=== PATIENT | female | born 1950 | race Caucasian/White ===

== ENCOUNTER 2018-05-12 12:00 | Outpatient (REF) | payer MEDICARE, OTHER, SELFPAY ==
[2018-05-12 21:35] LABS: Anion Gap 11.3 mmol/L (3-11); BUN 14 mg/dL (7-18); CO2 29.7 mmol/L (21.0-32.0); CREATININE 1.01 mg/dL (0.55-1.02); Chloride 99 mmol/L (98-107); Estimated GFR 54.67 (mL/min/1.73m2); Glucose 87 mg/dL (70-100); Magnesium 1.5 mg/dL (1.8-2.4); Potassium 3.2 mmol/L (3.5-5.1); Sodium 140 mmol/L (136-145); TSH 2.63 uIU/mL (0.358-3.74); Vitamin B12 1471 pg/mL (193-986)
[2018-05-15 06:48] LABS: Vitamin D 25 Total 31.3 ng/ml (30-100)
[2018-05-15 12:08] LABS: Hepatitis C Ab w Rflx HCV PCR Negative (NEGAT)
== END 2018-05-12 12:20 ==
LOC: NCHCN 12:00
PROVIDERS: Visit Provider Internal Medicine
DX: R53.83 Other fatigue (principal); Z79.899 Other long term (current) drug therapy; E03.9 Hypothyroidism, unspecified; Z11.59 Encounter for screening for other viral diseases; Z79.51 Long term (current) use of inhaled steroids
CPT/HCPCS: 80048; 82306; 86803; 82607; 83735; 84443

== ENCOUNTER 2018-07-10 16:24 | Outpatient (REF) | payer MEDICARE, OTHER, SELFPAY ==
[2018-07-10 22:22] LABS: Magnesium 1.6 mg/dL (1.8-2.4)
== END 2018-07-10 16:44 ==
LOC: NCHCN 16:24
PROVIDERS: PCP Internal Medicine; Visit Provider Internal Medicine
DX: E83.42 Hypomagnesemia (principal); E87.6 Hypokalemia
CPT/HCPCS: 83735; 84132

== ENCOUNTER → 2018-11-24 09:08 | Outpatient (BNVA) | payer MEDICARE, OTHER, SELFPAY | PROVIDERS: PCP Internal Medicine; Referring Provider Internal Medicine; Visit Provider Student in an Organized Health Care Education/Training Program | DX: M76.62 Achilles tendinitis, left leg (principal); I10 Essential (primary) hypertension | CPT/HCPCS: 99213; 99214 ==

== ENCOUNTER → 2019-01-22 09:04 | Outpatient (BNVA) | payer MEDICARE, OTHER, SELFPAY | PROVIDERS: PCP Internal Medicine; Referring Provider Internal Medicine; Visit Provider Student in an Organized Health Care Education/Training Program | DX: M76.62 Achilles tendinitis, left leg (principal); I10 Essential (primary) hypertension | CPT/HCPCS: 99213 ==

== ENCOUNTER 2019-09-18 09:34 | Outpatient (REF) | payer MEDICARE, OTHER, SELFPAY ==
[2019-09-18 14:02] LABS: Anion Gap 9.6 mmol/L (3-11); BUN 18 mg/dL (7-18); CO2 31.4 mmol/L (21.0-32.0); CREATININE 1.09 mg/dL (0.55-1.02); Calcium 9.3 mg/dL (8.5-10.1); Chloride 102 mmol/L (98-107); Estimated GFR 49.92 (mL/min/1.73m2); FREE T4 1.31 ng/dL (0.76-1.46); Glucose 154 mg/dL (74-106); Potassium 4.5 mmol/L (3.5-5.1); Sodium 143 mmol/L (136-145)
== END 2019-09-18 09:54 ==
LOC: NCHCN 09:34
PROVIDERS: PCP Internal Medicine; Visit Provider Internal Medicine
DX: R53.83 Other fatigue (principal); E83.42 Hypomagnesemia; E87.6 Hypokalemia
CPT/HCPCS: 80048; 84439; 84443

== ENCOUNTER 2019-10-25 01:41 | Outpatient (CLI) | payer MEDICARE, OTHER, SELFPAY ==
--- NOTE | 2019-10-25 | DI.MAMMO_ITS ---
EXAM: MG MAMMO SCREENING CLINICAL HISTORY: SCREENING Z12.39 TECHNIQUE: Bilateral full field digital CC and MLO mammographic images were obtained with 3D tomosyn thesis and utilizing computer aided detection (CAD). COMPARISON: Available for comparison. FINDINGS: Masses/Architectural Distortion: None seen. Surgical clips are again seen in the right breast. Microcalcifications: No suspicious pleomorphic-type are seen. Skin Thickening/Nipple Retraction: None. IMPRESSION: 1. No significant interval change with no specific features of malignancy noted. 2. Unless there is more urgent need, screening mammography is recommended, as per [place] guidelines. ACR BI-RAD Category- 1 Negative Breast Density - Category B - Scattered areas of fibroglandular density A negative radiographic report should not delay biopsy if a dominant or clinically suspicious mass is present. Up to ten percent of cancers are not identified on mammography. A negative report may reinforce clinical impression. Adenosis and dense breasts may obscure an underlying neoplasm. False positive reports average 6 to 10%. Patient will receive a letter notifying them of these results.
== END 2019-10-25 02:01 ==
PROVIDERS: PCP Internal Medicine; Visit Provider Internal Medicine
DX: Z12.31 Encounter for screening mammogram for malignant neoplasm of breast (principal)
CPT/HCPCS: 77063; 77067

== ENCOUNTER 2020-02-23 10:32 | Emergency (ER) | payer MEDICARE, OTHER, SELFPAY ==
[2020-02-23 10:36] VITALS: BP 200/76; PULSE 99; TEMP 36.6; O2SAT 96
--- NOTE | 2020-02-23 10:39 | ED.GENADUL_ITS ---
Discharge Plan Disposition Patient Disposition: HOME Condition: Good Discharge Details Chief Complaint: Orthopedic Clinical Impression: Fish hook injury of finger Primary Care Provider: Buddy Eisenberg ED Provider: Kristal Byrne Home Meds and New Rx's Prescriptions: New cephalexin [Keflex] 500 mg capsule 500 mg PO BID Qty: 10 RF: 0 Continued famotidine 40 mg tablet 40 mg PO DAILY RF: 0 potassium chloride 20 mEq tablet extended release 20 meq PO DAILY RF: 0 magnesium chloride [Mag-Delay] 70 mg tablet,delayed release (DR/EC) 84 mg PO DAILY RF: 0 turmeric root extract 500 mg capsule 500 mg PO BID RF: 0 fluticasone propion-salmeterol [Advair Diskus] 1 EACH blister with device 1 puff Inhalation BID RF: 0 sumatriptan succinate [Imitrex] 25 MG tablet 25 mg PO PRN PRNRF: 0 chlorthalidone 25 MG tablet 25 mg PO DAILY RF: 0 levothyroxine [Synthroid] 88 MCG tablet 112 mcg PO DAILY RF: 0 oxybutynin chloride 5 MG tablet extended release 24hr 10 mg PO DAILY RF: 0 albuterol sulfate 8.5 GM HFA aerosol inhaler 2 puff Inhalation Q4H PRN RF: 0 ferrous sulfate 325 MG tablet 325 mg PO TID RF: 0 docusate sodium 100 MG capsule 100 mg PO BID RF: 0 magnesium hydroxide [Milk of Magnesia] 30 ML suspension 30 ml PO PRN PRNRF: 0 fluticasone propionate [Flonase Allergy Relief] 9.9 ML spray,suspension 1 spray NS DAILY RF: 0 cholecalciferol (vitamin D3) 50,000 UNIT capsule 50,000 unit PO .EVERY OTHER TUESDAY RF: 0 Refresh Tears 15 ML drops 2 drp OU PRN PRNRF: 0 Fiber Choice (inulin) 1.5 GM tablet,chewable 1 tab PO PRN PRNRF: 0 celecoxib 200 MG capsule 200 mg PO BID Qty: 60 RF: 2 acetaminophen [Acetaminophen Extra Strength] 500 MG tablet 1,000 mg PO Q8H PRN PRNQty: 180 RF: 0 Discharge Instructions Instructions: Puncture Wound (ED) Additional Instructions: Please take the antibiotics as prescribed. This is to help prevent infection. Please continue to monitor wounds for signs of infection including redness, warmth, drainage, increased pain, fever/chills. If you develop these or other new/worsening symptoms please seek care urgently once again. May use Tylenol and/or ibuprofen as needed for discomfort. Follow-up with primary care as needed. Referrals: Buddy Eisenberg MD [Primary Care Provider] - Discharge Data Discharge Date/Time-TO BE ENTERED AT DEPARTURE: 02/23/20 11:25 Medical Decision Making <PABLO Bland - Last Filed: 02/23/20 11:47> Patient is a pleasant 69-year-old kxkmk-nvsy-kspeissa female presenting today with chief complaint of fishhook embedded in the right thumb. She reports the fishhook was clean and freshen the package. Attempted to remove this but the patel is preventing this. Patient is 9 years from her last tetanus, we will update this today. She denies any numbness or tingling. Denies other injury the time of the incident. On exam, patient has what appears to be a fishhook l embedded to the point of the patel approximately 4 mm compared to the other sides of the whole. She has intact sensation. No active bleeding. Patient discussed her/benefits as well as expected procedural steps of digital block. She voiced understanding and wished to proceed. sing standard sterile technique, digital block was perform using 1% lidocaine plain. 5 cc was infiltrated. Patient tolerated this well. String technique wa s then used completed by Dr. Sam Greenfield to remove the fishhook. This came out easily without incident. No further opening of the skin was necessary. Patient tolerated this well. The wound was then irrigated. Patient will then placed on prophylactic antibiotics as per up-to-date recommendation. Her tetanus was updated. Patient was initially hypertensive with a blood pressure of 206. She does report that she has hypertension and is able to monitor this at home. She will continue to monitor this and track it. She has not been appointment with her primary care. She is not having any headaches, chest pain or evidence of hypertensive emergency. She is aware she should return if any new symptoms arise. All of her questions or concerns were addressed and she is in agreement this plan. <Sam Greenfield MD - Last Filed: 03/05/20 11:21> Patient seen, examined, and discussed with PABLO Byrne. I performed fishhook removal with PABLO Byrne using string technique without complication. I obtained and reviewed outside hospital records from PCP: Tetanus is up-to-date. I agree with treatment plan as discussed/documented. HPI <PABLO Bland - Last Filed: 02/23/20 11:47> General Mode of arrival: ambulatory . Date/Time Provider Initiated Documentation: 02/23/20 10:39 . Limitations to Documentation: no limitations . Information obtained by: patient and RN notes reviewed . History of Present Illness 69 year old F presents to the emergency department with the chief complaint of fish hook embedded into right thumb, described as moderate, with intensity rated at 6. Quality is described as stabbing, and is localized to the right and upper extremity. Patient reports no radiation. Patient started experiencing this minute(s) and it has been constant. No relieving factors improve symptom(s), No exacerbating factors reported . Patient notes no other symptoms.. Patient did receive the following treatments prior to arrival, none Related Data Home Medications Medication Instructions Recorded Confirmed albuterol sulfate 2 puff INHALATION Q4H PRN inhaler 08/26/14 01/22/19 chlorthalidone 25 mg PO DAILY tab-cap 08/26/14 01/22/19 fluticasone propion-salmeterol 1 puff INHALATION BID disk 08/26/14 01/22/19 [Advair Diskus] levothyroxine [Synthroid] 112 mcg PO DAILY tab-cap 08/26/14 01/22/19 oxybutynin chloride 10 mg PO DAILY tab-cap 08/26/14 01/22/19 sumatriptan succinate [Imitrex] 25 mg PO PRN PRN 08/26/14 01/22/19 ferrous sulfate 325 mg PO TID 06/20/15 01/22/19 docusate sodium 100 mg PO BID 07/10/15 01/22/19 magnesium hydroxide [Milk of 30 ml PO PRN PRN 07/10/15 01/22/19 Magnesia] cholecalciferol (vitamin D3) 50,000 unit PO .EVERY OTHER Tuesday03/09/16 01/22/19 fluticasone propionate [Flonase 1 spray NS DAILY 03/09/16 01/22/19 Allergy Relief] Fiber Choice (inulin) 1 tab PO PRN PRN 09/15/16 01/22/19 Refresh Tears 2 drp OU PRN PRN 09/15/16 01/22/19 acetaminophen [Acetaminophen Extra 1,000 mg PO Q8H PRN PRN #180 tab 02/03/17 01/22/19 Strength] celecoxib 200 mg PO BID #60 cap 02/03/17 01/22/19 famotidine 40 mg tablet 40 mg PO DAILY 11/24/18 01/22/19 magnesium chloride 70 mg 84 mg PO DAILY tab 11/24/18 01/22/19 (magnesium chloride) tablet,delayed release potassium chloride 20 mEq 20 meq PO DAILY 11/24/18 01/22/19 tablet,extended release turmeric root extract 500 mg 500 mg PO BID 11/24/18 01/22/19 capsule cephalexin [Keflex] 500 mg PO BID #10 cap 02/23/20 Previous Rx's Medication Instructions Recorded acetaminophen [Acetaminophen Extra 1,000 mg PO Q8H PRN PRN #180 tab 02/03/17 Strength] celecoxib 200 mg PO BID #60 cap 02/03/17 cephalexin [Keflex] 500 mg PO BID #10 cap 02/23/20 Allergies Allergy/AdvReac Type Severity Reaction Status Date / Time psyllium husk Allergy asthma Unverified 01/22/19 09:11 [From Metamucil] psyllium seed Allergy asthma Unverified 01/22/19 09:11 [From Metamucil] sucrose [From Metamucil] Allergy asthma Unverified 01/22/19 09:11 gabapentin [From Neurontin] AdvReac Intermediate Angry Unverified 01/22/19 09:11 demeanor rosuvastatin calcium AdvReac Intermediate myalgia Unverified 01/22/19 09:11 [From Crestor] latex AdvReac local rash Unverified 01/22/19 09:11 metoclopramide HCl AdvReac facial Unverified 01/22/19 09:11 [From Reglan] tics, tachycardia General Stated Complaint: Orthopedic RASHI: 4 Review of Systems <PABLO Bland - Last Filed: 02/23/20 11:47> Constitutional Constitutional: Reports as per HPI, Denies chills and Denies fever(s) Musculoskeletal Musculoskeletal: Reports as per HPI Integumentary/Breasts Skin/Breast: Reports as per HPI Neurologic Neurologic: Reports as per HPI, Denies sensory deficit and Denies paresthesias PFSH <PABLO Bland - Last Filed: 02/23/20 11:47> Medical History (Updated 02/23/20 @ 11:20 by PABLO Bland) Aortic regurgitation Arthritis Storey esophagus Diverticulosis Fibrocystic breast Hypertension Hypothyroid Obesity RAD (reactive airway disease) Urine incontinence Surgical History (Updated 04/05/16 @ 14:04 by Kaitlin Curtis) Colonoscopy - IV Sedation Endoscopy (03/10/16) Dr Álvarez, repeat PRN Jerry Fundoplication Social History Smoking/Tobacco Use Status: Former Tobacco Use Drug use: Never Substance use type: does not use Do you feel safe at home: Yes Do you feel safe in your relationship?: Yes Exam <PABLO Bland - Last Filed: 02/23/20 11:47> Const General: cooperative, healthy appearing, comfortable, no acute distress and well developed Nutritional Appearance: average body habitus and well nourished Orientation: alert and awake Resp Effort & Inspection: normal respiratory effort, able to speak in complete sentences and no respiratory distress Cardio Rate: regular rate Rhythm: regular rhythm Skin Trauma: puncture (fish hook embedded into distal right thumb, patel in skin) Neuro General: patient alert and patient awake Cognition: normal cognition Speech: speech normal Gait: normal gait Sensory Exam: no sensory deficits noted Extrem Right upper extremity: abnormal to inspection Psych Appearance: grossly normal and well kempt Mental Status: mental status grossly normal Speech and Movement: speech and movement normal Course <PABLO Bland - Last Filed: 02/23/20 11:47> Vital Signs Vital signs: Vital Signs Temperature 36.6 C 02/23/20 10:36 Pulse 99 H 02/23/20 10:36 Blood Pressure 200/76 H 02/23/20 10:36 Pulse Oximetry 96 02/23/20 10:36 Temperature 36.6 C 02/23/20 10:36 Temperature Source Temporal Artery Scan 02/23/20 10:36 Pulse 99 H 02/23/20 10:36 Respiratory Effort Non-Labored 02/23/20 10:38 Blood Pressure 200/76 H 02/23/20 10:36 Blood Pressure Position Sitting 02/23/20 10:36 Pulse Oximetry 96 02/23/20 10:36 Oxygen Delivery Method Room Air 02/23/20 10:36 Oxygen Flow Rate 0 02/23/20 10:36 Pain Level 6 02/23/20 10:36
== END 2020-02-23 11:25 | disposition home or self-care (01) ==
PROVIDERS: Emergency Provider Physician Assistant; PCP Internal Medicine
DX: S61.041A Puncture wound with foreign body of right thumb without damage to nail, initial encounter (principal); W26.8XXA Contact with other sharp object(s), not elsewhere classified, initial encounter; I10 Essential (primary) hypertension
CPT/HCPCS: 90471; 99284; 99283

== ENCOUNTER 2021-03-03 16:22 | Outpatient (REF) | payer MEDICARE, OTHER, SELFPAY ==
[2021-03-03 20:50] LABS: Abs Immature Grans 0.02 10^3/uL (0.0-0.06); Absolute Basophil Count 0.07 10^3/uL (0.0-0.2); Absolute Eosinophil Count 0.17 10^3/uL (0.0-0.7); Absolute Lymphocyte Count 2.08 10^3/uL (1.2-3.4); Absolute Monocyte Count 0.55 10^3/uL (0.1-0.8); Absolute Neutrophil Count 4.92 10^3/uL (1.2-6.7); Basophils % 0.9; Eosinophils % 2.2; HGB 11.8 g/dL (11.2-15.7); Immature Grans % 0.3; Lymphocytes % 26.6; MCHC 30.3 % (32.0-36.0); MCV 76.2 fL (80-95); Nucleated RBC 0 %; Platelet Count 338 10^3/uL (130-400); RBC 5.12 10^6/uL (3.93-5.22); RDW 17.2 % (11.7-14.6); RDW-SD 47.8 fL; WBC 7.81 10^3/uL (4.4-10.8)
[2021-03-03 21:23] LABS: Anion Gap 10.1 mmol/L (3-11); BUN 19 mg/dL (7-18); CO2 28.9 mmol/L (21.0-32.0); CREATININE 1.2 mg/dL (0.55-1.02); Calcium 9.3 mg/dL (8.5-10.1); Chloride 103 mmol/L (98-107); Estimated GFR 44.54 (mL/min/1.73m2); FREE T4 1.37 ng/dL (0.76-1.46); Glucose 130 mg/dL (74-106); Magnesium 1.6 mg/dL (1.8-2.4); Potassium 3.5 mmol/L (3.5-5.1); Sodium 142 mmol/L (136-145); TSH 2.03 uIU/mL (0.36-3.74)
[2021-03-04 19:59] LABS: Calculated LDL 194 mg/dL (<100); Cholesterol 273 mg/dL (<200); HDL Cholesterol 45 mg/dL (40-60); Triglyceride 173 mg/dL (<150)
[2021-03-04 20:28] LABS: Iron 40 ug/dL (50-170); Total Iron Binding Capacity 411 ug/dL (250-450)
== END 2021-03-03 16:23 | disposition home or self-care (01) ==
LOC: NCHCN 16:22
PROVIDERS: PCP Internal Medicine; Visit Provider Internal Medicine
DX: E03.9 Hypothyroidism, unspecified (principal); E83.42 Hypomagnesemia; I10 Essential (primary) hypertension; E78.5 Hyperlipidemia, unspecified; Z86.2 Personal history of diseases of the blood and blood-forming organs and certain disorders involving the immune mechanism
CPT/HCPCS: 80048; 80061; 83540; 83550; 83735; 84439; 84443; 85025

== ENCOUNTER 2021-03-11 02:07 | Outpatient (CLI) | payer MEDICARE, OTHER, SELFPAY ==
--- NOTE | 2021-03-11 | DI.RAD_ITS ---
Exam(s) RF BARIUM SWALLOW EXAM: RF BARIUM SWALLOW CLINICAL HISTORY: DYSPHAGIA, ORAL PASE, R13.11 TECHNIQUE: 2D and realtime digital imaging was performed. CONTRAST MATERIAL: Oral barium Oral water soluble contrast was administered. COMPARISON: No exams were available for comparison FINDINGS: This study was performed standing and recumbent and with both single and air contrast technique. Swallowing mechanism is grossly intact. There was no aspiration evident. There no obvious hypertens e upper esophageal sphincter. No evidence of Zenker's diverticulum. No evidence of fixed lesion in the esophagus. There appears to be evidence of prior fundoplication surgery. There is a small pulsion diverticulum on the fundal side of the GE junction which measures approximately 8 x 5 millimeters. There is no fi xed stricture evident at the GE junction. No Schatzki ring. Towards the end of the study after abun dant contrast drinking and administering fizzies we were able to elicit a temporary small sliding hia arnulfo hernia. IMPRESSION: 1. No evidence of fixed lesion in the esophagus. No reflux demonstrated 2. Evidence of previous fundoplication surgery. 3. Small sliding-type hiatal hernia demonstrated only towards the end of this study and after the pat ient drank abundant oral contrast. RADIATION DOSE DELIVERED: Ka,r= mGy
[2021-03-11] MEDS: Barium Sulfate 60% W/V 355 ML BTL PO (09:32)
[2021-03-11] MEDS: Barium Sulfate 700 MG TAB PO (09:34)
[2021-03-11] MEDS: Simethicone/Sod Bicarb/Cit Ac, 4 gram PACKET 1 PACKET PO (10:20)
== END 2021-03-11 02:27 ==
PROVIDERS: PCP Internal Medicine; Visit Provider Internal Medicine
DX: K44.9 Diaphragmatic hernia without obstruction or gangrene
CPT/HCPCS: 74221; J3490

== ENCOUNTER 2021-07-07 16:18 | Outpatient (REF) | payer MEDICARE, OTHER, SELFPAY ==
[2021-07-07 14:32] LABS: Iron 88 ug/dL (50-170); Total Iron Binding Capacity 376 ug/dL (250-450); Transferrin Sat 23 % (15-50)
[2021-07-07 14:48] LABS: Calculated LDL 117 mg/dL (<100); Cholesterol 192 mg/dL (<200); HDL Cholesterol 51 mg/dL (40-60); Magnesium 1.7 mg/dL (1.8-2.4); Triglyceride 123 mg/dL (<150)
== END 2021-07-07 16:19 | disposition home or self-care (01) ==
LOC: NCHCN 16:18
PROVIDERS: PCP Internal Medicine; Visit Provider Internal Medicine
DX: E78.5 Hyperlipidemia, unspecified (principal); E83.42 Hypomagnesemia; Z86.2 Personal history of diseases of the blood and blood-forming organs and certain disorders involving the immune mechanism
CPT/HCPCS: 80061; 83540; 83550; 83735

== ENCOUNTER → 2021-12-04 00:12 | Outpatient (CLI) | payer MEDICARE, SELFPAY ==
--- NOTE | 2021-12-04 | DI.RAD_ITS ---
Exam(s) XR ANKLE RT COMPLETE EXAM: XR ANKLE RT COMPLETE CLINICAL HISTORY: RT ANKLE PAIN,M25.571. TECHNIQUE: 2D digital imaging was performed of the right ankle. Three images were obtained. AP, la teral and oblique views were obtained. COMPARISON: CR Heel - 2 Views from 01/27/2017 FINDINGS: BONES: No acute fracture is present. No bony destructive lesion is seen. Well corticated osseous den sities are seen adjacent to the malleoli. These appear old. There is a is an enthesophyte at the Ac hilles insertion site. Postsurgical changes are seen at the Achilles insertion site. JOINTS: The ankle mortise is normally aligned. SOFT TISSUE: Normal. IMPRESSION: No acute abnormality. DATA REPOSITORY: RADIATION DOSE DELIVERED:
== END ==
PROVIDERS: PCP Internal Medicine; Visit Provider Family Medicine
DX: M25.571 Pain in right ankle and joints of right foot (principal); M25.871 Other specified joint disorders, right ankle and foot
CPT/HCPCS: 73610

== ENCOUNTER 2021-12-23 10:53 | Outpatient (REF) | payer MEDICARE, SELFPAY ==
[2021-12-23 16:59] LABS: ALT 30 U/L (14-59); AST 29 U/L (15-37); Alkaline Phosphatase 83 U/L (46-116); Anion Gap 8.5 mmol/L (3-11); BUN 22 mg/dL (7-18); Bilirubin, Total 0.5 mg/dL (0.2-1.0); CO2 32.5 mmol/L (21.0-32.0); CREATININE 1.1 mg/dL (0.55-1.02); Calcium 9.2 mg/dL (8.5-10.1); Chloride 101 mmol/L (98-107); Glucose 115 mg/dL (74-106); Potassium 4.1 mmol/L (3.5-5.1); Sodium 142 mmol/L (136-145); TSH 2.39 uIU/mL (0.36-3.74); Total Protein 7.1 g/dL (6.4-8.2)
[2021-12-23 17:25] LABS: T4 11.5 ug/mL (4.7-13.3)
[2021-12-23 22:46] LABS: T3, Total 131 ng/dL (97-169)
== END 2021-12-23 10:54 | disposition home or self-care (01) ==
LOC: NCHCN 10:53
PROVIDERS: PCP Internal Medicine; Visit Provider Family Medicine
DX: E78.5 Hyperlipidemia, unspecified (principal); E03.9 Hypothyroidism, unspecified; I10 Essential (primary) hypertension
CPT/HCPCS: 80053; 84436; 84443; 84480

== ENCOUNTER → 2022-01-07 02:01 | Outpatient (CLI) | payer MEDICARE, SELFPAY ==
--- NOTE | 2022-01-07 | DI.MAMMO_ITS ---
Exam(s) MAMMO SCREENING EXAM: MAMMO SCREENING CLINICAL HISTORY: SCREENING, Z12.39 TECHNIQUE: Bilateral full field digital CC and MLO mammographic images were obtained with 3D tomosyn thesis and utilizing computer aided detection (CAD). COMPARISON: Available for comparison. FINDINGS: Masses/Architectural Distortion: There is a question of a new nodule in the upper central left breast on the MLO view. This area should be further evaluated with a spot compression view. Microcalcifications: No suspicious pleomorphic-type are seen. Skin Thickening/Nipple Retraction: None. IMPRESSION: 1. Question of a new nodule in the upper central left breast. 2. Spot compression view is recommended for further evaluation. Ultrasound may be indicated at that time. BI-RADS Category 0 - Assessment Incomplete: Need additional imaging evaluation Breast Density - Category B - Scattered areas of fibroglandular density Breast density category C or D implies that the patient has dense breast tissue. Dense breast tissue is very common and is not abnormal but dense breast tissue can make it harder to find cancer on a ma mmogram. Also, dense breast tissue may increase their breast cancer risk. This information about the result of the mammogram report was provided to the patient to raise their awareness. Use this report when you speak with the patient about their risks for breast cancer, which includes their family hist ory. At that time, you may recommend for more screening tests (Ultrasound or MRI) as they might be us eful based on their risk. A negative radiographic report should not delay biopsy if a dominant or clinically suspicious mass is present. Up to ten percent of cancers are not identified on mammography. A negative report may reinforce clinical impression. Adenosis and dense breasts may obscure an underlying neoplasm. False positive reports average 6 to 10%. Patient will receive a letter notifying them of these results.
== END ==
PROVIDERS: PCP Internal Medicine; Visit Provider Family Medicine
DX: Z12.31 Encounter for screening mammogram for malignant neoplasm of breast (principal); R92.8 Other abnormal and inconclusive findings on diagnostic imaging of breast
CPT/HCPCS: 77063; 77067

== ENCOUNTER → 2022-01-19 01:35 | Outpatient (CLI) | payer MEDICARE, SELFPAY ==
--- NOTE | 2022-01-19 09:30 | DI.MAMMO_ITS ---
Exam(s) MG MAMMO SCREEN CALL BACK UNI US BREAST LT COMPLETE EXAM: MAMMO SCREEN CALL BACK UNI - LEFT AND COMPLETE LEFT BREAST ULTRASOUND CLINICAL HISTORY: F/U ABNL MAMMO, ? NEW NODULE IN UPPER CENTRAL LT BREAST. TECHNIQUE: Unilateral spot mammographic images obtained with 3D tomosynthesisand utilizing computer aided detection (CAD). . Complete LEFT breast Ultrasound was also performed, including all 4 quadrants, the retroareolar regio n, and the ipsilateral axilla. COMPARISON: Prior mammograms were reviewed. This additional imaging was performed due to findings described on the recent screening mammogram of 01/07/2022. FINDINGS: Additional mammographic views performed todayrender this area less concerning. Ultrasound performed today reveals solitary finding at the 12 o'clock position which is a probable sm all hemorrhagic microcyst which measures 4 x 3 millimeters. There are no other significant focal sen d findings in all 4 quadrants. Scanning of the left axilla is negative for pathologic appearing lymph nodes. IMPRESSION: No radiographic evidence of malignancy. Small probable hemorrhagic microcyst measuring 4 x 3 millimeters is noted at 12 o'clock position on t he ultrasound. Appropriate follow-up is repeat left breast imaging in 6 months repeat left breast mammogram and ult rasound.. The patient was informed of these findings and recommendations prior to leaving the department today. BI-RADS Category 3 - 6 month - Probably Benign Finding: Recommend follow-up mammography in 6 months Breast Density - Category B - Scattered areas of fibroglandular density Breast density Category C or D implies that the patient has dense breast tissue. Dense breast tissue can make it harder to find cancer on a mammogram. Dense breast tissue is also associated with an incr eased risk of breast cancer. This information about the result of the mammogram report was provided to the patient to raise their awareness. Use this report when you speak with the patient about their risks for breast cancer, which includes their family history. At that time, you may recommend additional screening tests (Ultrasoun d or MRI) as these tests may add significant information. A negative radiographic report should not delay biopsy if a dominant or clinically suspicious mass is present. Up to ten percent of cancers are not identified on mammography. A negative report may reinforce clinical impression. Adenosis and dense breasts may obscure an underlying neoplasm. False positive reports average 6 to 10%. Patient will receive a letter notifying them of these results.
== END ==
PROVIDERS: PCP Internal Medicine; Visit Provider Family Medicine
DX: Z12.31 Encounter for screening mammogram for malignant neoplasm of breast (principal); R92.8 Other abnormal and inconclusive findings on diagnostic imaging of breast; N60.02 Solitary cyst of left breast
CPT/HCPCS: 76642; 77063; 77067

== ENCOUNTER → 2022-06-24 02:11 | Outpatient (CLI) | payer MEDICARE, SELFPAY ==
--- NOTE | 2022-06-24 13:34 | DI.RAD_ITS ---
Exam(s) XR WRIST LT COMPLETE EXAM: XR WRIST LT COMPLETE CLINICAL HISTORY: ARTHRITIS, M19.90, PAIN TECHNIQUE: COMPARISON: CR LEFT HAND COMPLETE from 09/15/2016 FINDINGS: Three views were obtained. There is slight ulnar minus variance. Otherwise carpal alignment appears within normal limits. There are mild degenerative changes at the navicular multangular and multangu lar metacarpal joints. No other significant bony or soft tissue abnormality seen. IMPRESSION: Mild DJD as described above RADIATION DOSE DELIVERED: Total DLP
== END ==
PROVIDERS: PCP Internal Medicine; Visit Provider Family Medicine
DX: M19.032 Primary osteoarthritis, left wrist (principal)
CPT/HCPCS: 73110

== ENCOUNTER → 2022-07-23 00:57 | Outpatient (CLI) | payer MEDICARE, SELFPAY ==
--- OUTSIDE RECORDS SUMMARY | 2022-07-23 00:58 | XMS_ITS | Encounter Summary ---
:1950 Author Organization [facility] Address [address] [place] [address] Care Team Providers Name Role Phone Kimberley Rod MD Primary Care Provider Reason for Visit Reason Comments Follow-up S/P JERRY REVISION ATTEMPT Encounter Details Date Type Department Care Team Description 11/07/2012 Office Visit General Surgery at [facility] (gastroesophageal [facility] MD Neptali reflux disease) [facility] (Pr imary Dx) Drive [address] [place] [facility] [id number] [place] [address] [phone] Social History Tobacco Use Types Packs/Day Years Used Date Smoking Tobacco: Former Cigarettes 1 30 Quit : 02/10/2003 Alcohol Use Standard Drinks/Week Comments Yes 0 (1 standard drink = 0.6 oz pure alcoho l) minimal- rarely social Sex Assigned at Date Recorded Not on file documented as of this encounter Last Filed Vital Signs Vital Sign Reading Time Taken Comments Blood Pressure - - Pulse - - Temperature - - Respiratory Rate - - Oxygen Saturation - - Inhaled Oxygen Concentration - - Weight 99.8 kg (220 lb) 11/07/2012 3:46 PM EDT Height - - Body Mass Index 36.61 09/28/2012 6:23 PM EST documented in this encounter Progress Notes Jarod Lee MD - 11/07/2012 4:12 PM EDT Sharlene Gaspar is a 62-year-old female who presents in followup. She is status post an attempted revision of her previous Jerry fundoplication. This was done on 09/28/2012. Unfortunately at the time of surgery she was noted to have a very atypical dense scar tissue around her gastroesophageal junction on the diaphragm and with the left lobe of the liver to the point where she had no discernible discrete anatomy and attempts to take down her previous fundoplication resulted in a gastric enterotomy, as well as bleeding from her liver. We were able to repair the enterotomy in the stomach without difficulty. The endoscopy at the time demonstrated no leak in the stomach; however, given complete lack of progress with two significant complications and no hope for progress during the operation the decision was made to abandon attempt at revision fundoplication. Indication for surgery was symptomatic reflux to improve quality of live; therefore, it was felt not reasonable to proceed with an operation that could easily have resulted in a life-threatening complication. As we see her today she is doing well. She has had no postoperative complications. On physical exam all trocar sites are healing well without any evidence of erythema or herniation. Her abdomen is soft, flat, and nontender. At this point I reviewed with her the findings at the time of surgery. I am not sure what was atypical about her operation back in 1994. She does acknowledge that she was one of Dr. Bass's very first Jerry fundoplications and back then I suspect there was a little bit more inflammation or difficulty with conduct of the operation than there might be these days. For whatever reason, she had a very profound inflammatory response, which resulted in dense scar tissue formation. I will plan on seeing her back on p.r.n. basis. I told her to go back on her antacid medications, but I would not anticipate surgery would be a good option for her in the future. documented in this encounter Plan of Treatment Not on filedocumented as of this encounter Visit Diagnoses Diagnosis GERD (gastroesophageal reflux disease) - Primary Esophageal reflux documented in this encounter Care Teams Training Designer Relationship Specialty Start Date End Date Kimberley Rod MD PCP - General 07/14/10 05/11/21 [address] [place] [address] documented as of this encounter
--- OUTSIDE RECORDS SUMMARY | 2022-07-23 00:58 | XMS_ITS | Encounter Summary ---
:1950 Author Organization [facility] [place] [address] Care Team Providers Name Role Phone Kimberley Rod MD Primary Care Provider Reason for Visit Reason Comments Skin Lesion Encounter Details Date Type Department Care Team Description 07/04[facility]2015 [facility] MD inflamed [address] [facility] Sawyer B DERMATOLOGY [place], [place] [id number] [phone] Social History Tobacco Use Types Packs/Day Years Used Date Smoking Tobacco: Former Cigarettes 1 30 Quit : 02/10/2003 Alcohol Use Standard Drinks/Week Comments Yes 0 (1 standard drink = 0.6 oz pure alcoho l) minimal- rarely social Sex Assigned at Date Recorded Not on file documented as of this encounter Patient Instructions Patient InstructionsRadha Chappell LPN - 07/04/2015 9:08 AM EST Images from the original note were not included. [facility] Seborrheic Keratosis: After Your Visit Your Care Instructions Seborrheic keratoses are raised skin growths that look scaly or warty. They usually look like they were stuck onto the skin. They most often grow in groups on the back or chest and are more common in older people. A seborrheic keratosis can be goodwin or dark brown. A seborrheic keratosis is not a mole and never turns into cancer. But it is still a good idea to check your skin regularly. Sometimes a seborrheic keratosis can itch. Scratching it can cause it to bleed and sometimes even scar. A seborrheic keratosis is removed only if it bothers you. The doctor will freeze it or scrape it offwith a tool. The doctor can also use a laser to remove a seborrheic keratosis. Treatment usually results in normal-looking skin, but it can leave a light or dark albaro or even a scar on the skin. Follow-up care is a almaraz part of your treatment and safety. Be sure to make and go to all appointments, and call your doctor if you are having problems. It's also a good idea to know your test results and keep a list of the medicines you take. How can you care for yourself at home? ?? If clothing irritates your seborrheic keratosis, cover it with a bandage to prevent rubbing and bleeding. ?? If you have a seborrheic keratosis removed, clean the area with soap and water two times a day unless your doctor gives you different instructions. Don't use hydrogen peroxide or alcohol, which can slow healing. ?? You may cover the wound with a thin layer of petroleum jelly, such as Vaseline, and a nonstick bandage. ?? Check all the skin on your body once a month for skin growths or other changes, such as color andfeel of the skin. ?? soldering machine operator front of a full-length mirror. Look carefully at the front and back of your body. Then look at your right and left sides with your arms raised. ?? Bend your elbows and look carefully at your forearms, the back of your upper arms, and your palms. ?? Look at your feet, the soles of your feet, and the spaces between your toes. ?? Use a hand mirror to look at the back of your legs, the back of your neck, and your back, rear end (buttocks), and genital area. Part the hair on your head to look at your scalp. ?? If you see a change in a skin growth, contact your doctor. Look for: ?? A mole that bleeds. ?? A fast-growing mole. ?? A scaly or crusted growth on the skin. ?? A sore that will not heal. When should you call for help? Call your doctor now or seek immediate medical care if: ?? You have an area of normal skin that suddenly changes in shape, size, or how it looks. ?? Your skin is badly broken from scratching. ?? You have signs of infection such as: ?? Pain, warmth, or swelling in your skin. ?? Red streaks near a wound in your skin. ?? Pus coming from a wound in your skin. ?? A fever not due to the flu or other illness. Watch closely for changes in your health, and be sure to contact your doctor if: ?? You do not get better as expected. Where can you learn more? Visit our health information library at http://[email or web address] You can also view health information on [employer], your personal patient account. Log in or sign up today. Enter Z945 in the search box to learn more about Seborrheic Keratosis: After Your Visit. ?? [id number] [employer]. Care instructions adapted under license by [facility]. This care instruction is for use with your licensed healthcare professional. If you have questionsabout a medical condition or this instruction, always ask your healthcare professional. [employer] disclaims any warranty or liability for your use of this information. Content Version: 10.4.578430; Current as of: October 31, 2013 documented in this encounter Progress Notes Earnest Soni MD - 07/04/2015 9:18 AM EST Problem: Followup irritated seborrheic keratoses. Priscila follows up after last being seen June 13. She has had partial but not complete resolution of her sub Ks. She would like to have these retreated. Physical examination again reveals irritated sub Ks and stucco keratoses present on the posterior legs, several on her anterior thighs, which are hyperkeratotic and irritated. Also has a couple of stucco keratoses on the left dorsal hand. Assessment and Plan: Seborrheic keratoses/stucco keratoses, irritated. a. LN2 times two applied to symptomatic sites. b. Expect this should bring good resolution. c. Return to clinic here now will be on a p.r.n. basis. I am happy to treat symptomatic lesions. Discussed the possibility of recurrence at treated sites. Treatment of nonsymptomatic lesions is considered cosmetic surgery. COPY: Camila Palma, N.P. documented in this encounter Plan of Treatment Not on filedocumented as of this encounter Visit Diagnoses Diagnosis Seborrheic keratosis, inflamed Inflamed seborrheic keratosis documented in this encounter Care Teams Car Tracer Relationship Specialty Start Date End Date Kimberley Rod MD PCP - General 07/14/10 05/11/21 [address] [place] [address] documented as of this encounter
--- OUTSIDE RECORDS SUMMARY | 2022-07-23 00:58 | XMS_ITS | Encounter Summary ---
:1950 Author Organization [facility] [place] [address] Care Team Providers Name Role Phone Kimberley Rod MD Primary Care Provider Encounter Details Date Type Department Care Team Description 08/31/2012 Office Visit Gastroenterology at [facility] Silvano Hsu, GERD [facility] Shira buckner MD ([place] [address] [facility] reflux disease) [phone] [place] (Primary Dx) [place] [address] Social History Tobacco Use Types Packs/Day Years Used Date Smoking Tobacco: Former Cigarettes Quit : 02/10/2003 Sex Assigned at Date Recorded Not on file documented as of this encounter Progress Notes Silvano Hsu MD - 09/04/2012 5:53 PM EST JKUIE-[id number]-[id number] WIRELESS pH CAPSULE MOTILITY LAB Priscila Gaspar Female, 62 yrs, 1950 PCP: KIMBERLEY ROD STUDY DATES: 08/25/12 to 08/27/12 INTERPRETATION DATE: 09/01/12 PROVIDER: Silvano [place] ([id number]) INDICATION Reflux symptoms; preoperative evaluation. NOTE: This study was performed off of medications used to treat acid reflux. METHODS After landmarks were visualized and measured, in a supervised setting, and after informed consent, aBravo pH telemetry capsule was deployed orally and attached to the esophageal wall at 5 cm above theupper border of the LES. No complications were noted during this procedure. FINDINGS Visual inspection of the study shows fluctuations in pH values throughout the study consistent with a technically adequate study. DAY ONE Total Number of Reflux Episodes: 132 Upright Position: 34 Supine Position: 98 Reflux Episodes Longer than Five Minutes: 9 Upright: 2 Supine: 7 Duration of Longest Episode: 16 minutes, upright position Total Distal Esophageal Acid Exposure Time: 162 minutes. Percent of Total Recording Time: 11.5% Percent of Upright Recording Time: 5.1% Percent of Supine Recording Time: 21.9% DAY TWO Total Number of Reflux Episodes: 91 Upright Position: 7 Supine Position: 84 Reflux Episodes Longer than Five Minutes: 10 Upright: 0 Supine: 10 Duration of Longest Episode: 28 minute, supine position Total Distal Esophageal Acid Exposure Time: 181 minutes. Percent of Total Recording Time: 12.8% Percent of Upright Recording Time: 0.9% Percent of Supine Recording Time: 25.4% Nftga-Lfhag-Oriu (Total) Fraction of Time with pH Less Than 4%: 12.2% Calculated DeMeester Score (normal values are up to 14.72) Day One Calculated DeMeester Score: 53.3 Day Two Calculated DeMeester Score: 54.9 Fgcya-Pbhjl-Fxng DeMeester Score (Total): 55.2 Day One Symptoms Association Probability (SAP) for Heartburn: 34% Regurgitation: 69% Chest pain: 97% Other: 0% Day Two SAP for Heartburn: 75% Regurgitation: 69% Chest pain: 69% Other: 0% Tlfpq-Mxbuq-Qxup SAP for Heartburn: 84% Regurgitation: 65% Chest pain: 91% Other: 0% IMPRESSION During this recording period, while the patient was not on medications for acid reflux, there was clear evidence of pathologic acid reflux into the distal esophagus on both day one and day two. Symptomassociation was elevated, but not statistically significant. NORMAL VALUES FOR WIRELESS pH CAPSULE STUDY 1. Total number of reflux episodes = less than 50. 2. Number of episodes longer than 5 minutes = less than 3. 3. Acid exposure time Total = less than 5.3% Upright = less than 6.3% Supine = less than 1.2%. ADDENDUM SAP expresses the likelihood that a specific symptom, i.e., heartburn, regurgitation, chest pain, isassociated with acid reflux. By convention, SAP values greater than 95% are positive. Silvano Hsu MD, PhD it systems analyst consultant, [employer] Section of Gastroenterology [place] [address] V: [phone] F: [phone] KAREN/ayesha EC/CC: Jarod Lee MD PCP documented in this encounter Plan of Treatment Not on filedocumented as of this encounter Visit Diagnoses Diagnosis GERD (gastroesophageal reflux disease) - Primary Esophageal reflux documented in this encounter Care Teams Metal Extrusion Supervisor Relationship Specialty Start Date End Date Kimberley Rod MD PCP - General 07/14/10 05/11/21 [address] [place] [address] documented as of this encounter
--- OUTSIDE RECORDS SUMMARY | 2022-07-23 00:58 | XMS_ITS | Encounter Summary ---
:1950 Author Organization [facility] Address [address] [place] [address] Care Team Providers Name Role Phone Kimberley Rod MD Primary Care Provider Reason for Visit Reason Comments Follow-up Encounter Details Date Type Department Care Team Description 09/12/2012 Follow-Up General Surgery at Jarod Lee [address] (gastroesophageal [facility] [place] reflux disease) [facility] (Pr imary Dx) [place] [address] GENERAL SURGERY [phone] [place] [address] (Wo rk) Social History Tobacco Use Types Packs/Day Years Used Date Smoking Tobacco: Former Cigarettes Quit : 02/10/2003 Sex Assigned at Date Recorded Not on file documented as of this encounter Last Filed Vital Signs Vital Sign Reading Time Taken Comments Blood Pressure - - Pulse - - Temperature - - Respiratory Rate - - Oxygen Saturation - - Inhaled Oxygen Concentration - - Weight 105.8 kg (233 lb 4 oz) 09/12/2012 10:41 AM EST Height 167.6 cm (5' 6) 09/12/2012 10:41 AM EST Body Mass Index 37.65 09/12/2012 10:41 AM EST documented in this encounter Progress Notes Jarod Lee MD - 09/12/2012 11:28 AM EST Priscila Gaspar is a 62-year-old female who returns in followup. She is someone I had previously seen for evaluation of possible reoperation for acid reflux. She had a Jerry fundoplication performed up in [place] by Dr. Bass many years ago. When I saw her the plan was to obtain esophageal manometry and pH probe data on her. She had these performed. The pH test was done off of antacid medication. On day one of that study she had acid in her distal esophagus for 11.5%, on day two it was slightly worse at 12.8 for a two day average of 12.2. She had symptoms correlation, heartburn 84%, regurgitation 65%, and chest pain 91%. She also has had esophageal motility done. She had a lower esophageal sphincter pressure of 9. It relaxed appropriately with swallowing. However, her esophageal motility was abnormal in that of 9 swallows only 3 were peristaltic, 3 were not transmitted, and three were simultaneous. Her LES pressure at 3 cm above the LES was low at 12 and 8 cm again low at 11. Overall impression was of a hypotensive lower esophageal sphincter, which relaxed appropriately. She had ineffective lower esophageal sphincter, which relaxed appropriately. 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 I shared this information regarding her motility and the pH probe data with the patient and her . She does have significant acid reflux with a hypotensive lower esophageal sphincter. Any reoperation on her would be somewhat difficult given the poor esophageal motility. 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 However, there is a chance that she may not tolerate a full fundoplication with regard to her esophageal dysmotility. I left it that we would make an intraoperative decision. Sometimes patients have a very tubularized stomach, making a full wrap somewhat tight, in which case I would not attempt that on her. I would do a partial fundoplication; however, if she has a redundant fundus and it came around easily I would consider a full fundoplication on her. I think it would be reasonable that we could accomplish this through a laparoscopic approach. I mentioned the risks of surgery to include the possibility of infection, the possibility of bleeding requiring transfusion, the possibility of need to convert to the open surgery, and possible recurrence of symptoms. Post-op she is likely to experience a component of early satiety, dysphagia, and bloating. The majority of these symptoms decrease the further she gets out from surgery. Overall she seems to understand and would like to proceed. With this in we will make arrangements for a laparoscopic redo fundoplication at some point in the near future. documented in this encounter Plan of Treatment Not on filedocumented as of this encounter Visit Diagnoses Diagnosis GERD (gastroesophageal reflux disease) - Primary Esophageal reflux documented in this encounter Care Teams Senior Drafter Relationship Specialty Start Date End Date Kimberley Rod MD PCP - General 07/14/10 05/11/21 [address] [place] [address] documented as of this encounter
--- OUTSIDE RECORDS SUMMARY | 2022-07-23 00:58 | XMS_ITS | Encounter Summary ---
:1950 Author Organization [facility] [place] [address] Care Team Providers Name Role Phone Buddy Eisenberg MD Primary Care Provider Reason for Visit Reason Comments Follow-up Encounter Details Date Type Department Care Team Description 05/12/2021 Office Visit Dermatology at [facility] Soni, Seborrh eic keratosis Nay RONQUILLO [address] [facility] Sawyer B DERMATOLOGY [place], [place] [id number] [phone] Social History Tobacco Use Types Packs/Day Years Used Date Smoking Tobacco: Former Cigarettes 1 30 Quit : 02/10/2003 Smokeless Tobacco: Never Alcohol Use Standard Drinks/Week Comments Yes 0 (1 standard drink = 0.6 oz pure alcoho l) minimal- rarely social Sex Assigned at Date Recorded Not on file documented as of this encounter Progress Notes Earnest Soni MD - 05/12/2021 3:15 PM EDT Problem: Skin checkup, new lesions of concern Sharlene follows with the last seeing me in 2014. She is some new lesions of concern. She is now 71. Physical examination reveals a pleasant 71 woman who has numerous seborrheic keratoses in different stages of development, and some a pigmented, and some not, present on the lower extremities on her ankles on her calves on her thighs her arms some also her back and some on the left holiness. She has 1 on the left lateral neck and several on the right postauricular scalp. Fortunately all of these are benign seborrheic keratoses and none represent any premalignant lesion. The examination of the head andthe neck the chest the back the hands the arms of forearms the thighs and the calves otherwise benign. Assessment plan: Seborrheic keratoses, numerous 1. Patient reassured about these 2. Patient's father also apparently had numerous seborrheic keratoses and I explained to Sharlene abouttheir genetic predilection. 3. Could consider LN2 to symptomatic site on left neck and behind right ear 4. Otherwise return to clinic as needed. CC: Buddy Eisenberg MD documented in this encounter Plan of Treatment Not on filedocumented as of this encounter Visit Diagnoses Diagnosis Seborrheic keratosis Other seborrheic keratosis documented in this encounter Care Teams Audiovisual Tech Relationship Specialty Start Date End Date Buddy Eisenberg MD PCP - General Internal Medicine 05/12/21 [address] [place] [address] documented as of this encounter
--- OUTSIDE RECORDS SUMMARY | 2022-07-23 00:58 | XMS_ITS | Encounter Summary ---
:1950 Author Organization [place] [address] Care Team Providers Name Role Phone Kimberley Rod MD Primary Care Provider Encounter Details Date Type Department Care Team Description 09/28/2012 - Hospital Encounter Intermediate Cardiac MigdaliaFlaquito pina yaquelin 09/29/2012 Care Unit Kayce Gunderson MD [facility] [place] [address] [place] [address] [phone] Social History Tobacco Use Types Packs/Day Years Used Date Smoking Tobacco: Former Cigarettes 30 Quit : 02/10/2003 Tobacco Cessation: Counseling Given: No Alcohol Use Standard Drinks/Week Comments Yes 0 (1 standard drink = 0.6 oz pure alcoho l) minimal- rarely social Sex Assigned at Date Recorded Not on file documented as of this encounter Last Filed Vital Signs Vital Sign Reading Time Taken Comments Blood Pressure 138/52 09/29/2012 7:26 AM EST Pulse 67 09/29/2012 7:26 AM EST Temperature 36.7 ??C (98.1 ??F) 09/29/2012 7:26 AM EST Respiratory Rate 20 09/29/2012 7:26 AM EST Oxygen Saturation 94% 09/29/2012 7:26 AM EST Inhaled Oxygen Concentration - - Weight 99.8 kg (220 lb) 09/28/2012 6:23 PM EST Height 165.1 cm (5' 5) 09/28/2012 6:23 PM EST Body Mass Index 36.61 09/28/2012 6:23 PM EST documented in this encounter Discharge Instructions Patient InstructionsTony Prakash MD - 09/28/2012 3:07 PM EST Call your doctor if you develop: Fever greater than 101.3 degrees Farenheit (38.5 degrees Celcius), chills, nausea or vomiting. Also call if you develop severe pain not relieved by your prescribed oral pain medicine. CALL THE GENERAL SURGERY CLINIC DURING WORKING HOURS AT , OR CALL AFTER CLINIC HOURS, WEEKENDS AND HOLIDAYS: ASK FOR THE GENERAL SURGERY RESIDENT SENIOR PLANNER IF ANY OF THE ABOVEOCCUR. Activity level: Increase your activity slowly. You may tire easily, so frequent rest periods may be necessary. Do not lift more than 10 pounds for 4 weeks. Walk three times a day. Use common sense. Don't exhaust yourself. Diet: You should follow a post Corrie diet, as instructed by the avid editor in the hospital for a periodof approximately 3 weeks. The main purpose of this diet is to have you consume foods that will slideeasily down into your stomach. Most foods when well chewed should pass through the esophagus and into your stomach. However, patients do not always chew foods well enough. Slow, thorough chewing is recommended. Moistening foods with sauce, gravy, syrup or other liquids can be helpful. You should consume only very soft, small particle foods. You should not eat bread or drink carbonated beverages. You should start with more bland foods and if these are tolerated you may increase the amount of spice inyour food. If you find there are foods that don't agree with you, try these sparingly until you can tolerate them. You need to remain in an upright position for 30-60 minutes after you eat. You may find that you need to eat smaller meals with frequent between meal snacks to get enough calories. Pills: Please crush all pills for 4 weeks. Pain: Roxicodone elixir for pain, as directed. Driving: Do not drive while taking narcotic pain medications such as Roxicodone. Shower/Bath: You may shower and let water run over wound 48 hours after your surgery. No soaking baths or swimming for 2 weeks from surgery. Wound Care: Once showering, wash your incision(s) daily with soap and rinse well, pat dry. Assess for any signs of infection such as increased redness, pain, warmth or drainage. The Steri-Strips will fall off in 7-10 days. The brown bandaids can be removed at any time. Follow-up: You have a follow-up appointment scheduled to see Dr. Pa at the [facility]. You will receive a letter in the mail confirming the appointment date and time. Your follow-up is very important to us. Please call [phone] if you do not hear from us within 7 days of discharge or if you need to change the appointment date/time. AttachmentsThe following attachments cannot be sent through Care Everywhere. CORRIE FUNDOPLICATION: WHAT TO EXPECT AT HOME (VIETNAMESE)documented in this encounter Medications at Time of Discharge Medication Sig Dispensed Refills Start Date End Date LACTOBACILLUS ACIDOPHILUS Take by mouth 2 0 (ACIDOPHILUS ORAL) times daily. albuterol (PROVENTIL Inhale 2 puffs into 0 HFA;VENTOLIN HFA) 90 the lungs 2 times mcg/actuation inhaler daily. Use with spacer pantoprazole (PROTONIX) Take 40 mg by mouth 0 40 mg tablet 2 times daily. multivitamin (THERAGRAN) Take 1 tablet by 0 tablet mouth daily. sucralfate (CARAFATE) 1 Take 1 g by mouth 4 0 gram tablet times daily. amitriptyline (ELAVIL) 25 Take 25 mg by mouth 0 mg tablet as needed. SUMAtriptan (IMITREX) 25 Take 25 mg by mouth 0 mg tablet as needed. fluticasone-salmeterol Inhale 1 puff into 0 (ADVAIR) 250-50 mcg/dose the lungs every 12 diskus inhaler hours. simvastatin (ZOCOR) 20 mg Take 20 mg by mouth 0 tablet nightly. magnesium hydroxide (MILK Take by mouth as 0 OF MAGNESIA) 2,400 mg/10 needed. mL suspension docusate sodium (COLACE) Take 1 capsule by 60 capsule 1 03/201309/29/2013 100 mg capsule mouth 2 times daily. OXYcodone (ROXICODONE) 5 Take 5 mLs by mouth 150 mL 0 05/12/2021 mg/5 mL solution every 4 hours as needed for Pain. solifenacin (VESICARE) 5 Take 5 mg by mouth 0 05/12/2021 mg tablet daily. levothyroxine (SYNTHROID) Take 75 mcg by 0 05/12/2021 75 mcg tablet mouth daily. CYANOCOBALAMIN, VITAMIN Take by mouth 0 05/12/2021 B-12, (VITAMIN B-12 ORAL) daily. traZODone (DESYREL) 50 mg Take 50 mg by mouth 0 05/12/2021 tablet nightly. celecoxib (CELEBREX) 200 Take 200 mg by 0 05/12/2021 mg capsule mouth 2 times daily. FLUoxetine (PROZAC) 40 mg Take 40 mg by mouth 0 05/12/2021 capsule daily. documented as of this encounter Progress Notes Juliette Duran RN - 09/29/2012 12:33 PM EST Record reviewed and patient discussed with multidisciplinary team. No discharge needs identified at this time. CRC remains available as needed for coordination of care and discharge planning. Juliette Duran RN Clinical Manager [place] Office of Care Management Maritza Lee DT - 09/29/2012 11:28 AM EST Nutrition Services - Education Note Priscila Gaspar : 1950 AGE: 62 y.o. 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 Verbalized good understanding. Education material, with means of contact provided. Assessment: Patient denies need for any other changes at this time. Nutrition Plan: Diet: Corrie, full liquids - no carbonated beverages Support and encouragement provided. Nutrition services to follow weekly thru hospital course unless consulted in the interim. PAYAL HUNTLEY Jessica Baca PA - 09/29/2012 8:12 AM EST GENERAL SURGERY INPATIENT PROGRESS NOTE ID: Priscila Gaspar ( ) is a 62 y.o. female admitted on 09/28/2012, now 1 Day Post-Op lap Crorie revision attempt (unsuccessful due to extent of scar tissue) 24hr events/S: No acute events overnight Tolerating clears, no dysphagia No n/v (+) flatus Voiding, ambulating well O: Last value Range last 24 hrs Temperature Temp: 36.7 ??C (98.1 ??F) Temp: [36.2 ??C (97.2 ??F)-36.9 ??C (98.4 ??F)] Heart Rate Heart Rate: 67 Heart Rate: [66-78] Blood Pressure BP: 138/52 mmHg BP: (118-169)/(52-76) Respiratory Rate Resp: 20 Resp: [12-20] SpO2 SpO2: 94 % SpO2: [92 %-99 %] Intake/Output Summary (Last 24 hours) at 09/29/12 0812 Last data filed at 09/29/12 0600 Gross per 24 hour Intake 3955 ml Output 2064 ml Net 1891 ml Physical Exam: General: NAD, resting comfortably in bed HEENT: EOMI, anicteric sclerae CVS: RRR, no m/r/g Pulm: CTAB, no wheezes or rhonchi Abd: Soft, nontender, nondistended, active BSx4, lap incisions c/d/i Skin: Warm, dry Ext: WWP, no edema Recent Labs Basename 09/29/12 0431 WBC 7.6 HGB 10.4* HCT 32.8* PLATELET 207 PT -- INR -- PTT -- Recent Labs Basename 09/29/12 0431 NA 139 K 4.7 CL 103 CO2 28 BUN 10 CREATININE 0.68* GLUCOSE 114 CALCIUM 8.7 MAGNESIUM -- PHOS -- ASSESSMENT / PLAN: Priscila Gaspar is a 62 y.o. female with issues as stated above, now 1 Day Post-Op failed Corrie revision. Stable overnight, with good pain control, tolerating diet, and voiding andambulating well. 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 documented in this encounter H&P Notes Tony Prakash MD - 09/28/2012 11:36 AM EST No change in the patient's H&P as documented by Dr Pa on 09/12. In summary, this is a 62 y.o. female with a history of recurrent GERD status post lap Corrie in 1994. She denies any dysphagia but does reports occasional epigastric pain and regurgitation. Her pH study is consistent with pathologic reflux, and manometry revealed ineffective esophageal motility. Had an episode of bronchitis last month treated with antibiotics and steroids, but she has been withno cough or other illness for at least 2 weeks. Lungs clear. Heart with regular rate and rhythm. Ready to proceed with planned procedure. documented in this encounter Miscellaneous Notes Miscellaneous - Elisabet Estrella - 09/30/2012 12:04 PM EST Plan of Care - Angie Harry RN - 09/29/2012 11:24 AM EST Patient to be discharged to home via private car. IVs removed, patient tolerated well. Patient is leaving with no active lines of drains. Six incision sites on abdomen clean, dry, and intact. Right upper quadrant dressing, which had to bereinforced last night is clean, dry, and intact, all sites stable. Discharge AVS and instructions reviewed with patient and her . Two paper prescriptions handedto patient's . They are aware that the oxycodone will need to be filled at a pharmacy and plan to stop on their drive home, and that the prescription for the colace is only if they have difficulty finding it over the counter. Richie Alexandre HEALTH SCIENCES MANAGER, up to talk to patient and her prior to discharge related to financial concerns (paying for medical bills, needing to pay for grocery's with a credit card). He is providing them with information and assistance as needed. Patient provided with a wheel chair to bring her to her private car. Patient is stable at the time of discharge. Discharge Summary - Jessica Nelson PA - 09/29/2012 8:09 AM EST GENERAL SURGERY Inpatient - Discharge Summary Patient Name: Priscila Gaspar Patient Age: 62 y.o. Birthdate: 1950 Admit date: 09/28/2012 Discharge date: 09/29/2012 Attending Physician: Brigid Pa MD CC This Visit: GERD/FAILED CORRIE Patient Active Problem List Diagnoses Date Noted ??? GERD (gastroesophageal reflux disease) 08/01/2012 ??? Urge incontinence 04/12/2012 HPI and Summary of Hospital Course: Priscila Gaspar is a 62 y.o. female admitted on 09/28/2012 for a planned laparoscopic Corrie revision. Due to the extent of scar tissue encountered during the procedure, revision was not possible. Ms. Gaspar tolerated the procedure well, and was admitted to the floor in stable condition thereafter. Once her pain was adequately controlled on oral medications, she was tolerating a diet, and was ambulating and voiding at baseline, she was deemed medically appropriate for discharge to home on 1 Day Post-Op. Updated Allergies/ADRs: Allergies Allergen Reactions ??? Latex CIS - BREAK OUT ??? Crestor (Rosuvastatin) ??? Gloves, Latex CIS - BREAK OUT ??? Latex Dams CIS - BREAK OUT ??? Psyllium ??? Psyllium Seed CIS - ASTHMA ??? Reglan (Metoclopramide Hcl) Chest palpitations and pain. Operations/Major Procedures: Operations: 09/28/2012 Surgeon(s) and Role: * Brigid Pa MD - Primary * Tony Prakash MD - Fellow: Procedure(s): ENDOSCOPY, UPPER GI, DIAGNOSTIC, WITH OR WITHOUT SPECIMENS LAPAROSCOPIC REVISION OF CORRIE FUNDOPLASTY Important Studies and Lab Data: Recent Labs Basename 09/29/12 0431 WBC 7.6 HGB 10.4* HCT 32.8* PLATELET 207 PT -- INR -- PTT -- Recent Labs Basename 09/29/12 0431 NA 139 K 4.7 CL 103 CO2 28 BUN 10 CREATININE 0.68* GLUCOSE 114 CALCIUM 8.7 MAGNESIUM -- PHOS -- Discharge Examination: Last value Range last 24 hrs Temperature Temp: 36.7 ??C (98.1 ??F) Temp: [36.2 ??C (97.2 ??F)-36.9 ??C (98.4 ??F)] Heart Rate Heart Rate: 67 Heart Rate: [66-78] Blood Pressure BP: 138/52 mmHg BP: (118-169)/(52-76) Respiratory Rate Resp: 20 Resp: [12-20] SpO2 SpO2: 94 % SpO2: [92 %-99 %] Intake/Output Summary (Last 24 hours) at 09/29/12 1044 Last data filed at 09/29/12 0900 Gross per 24 hour Intake 3960 ml Output 2464 ml Net 1496 ml Physical Exam: Gen: Resting in bed, NAD, oriented x3 Pulm: CTAB, no crackles/wheeze Card: Regular rate/rhythm, no m/r/g, no JVD Abd: Non-distended, active BS, soft, nontender to palpation, incision dressings c/d/i Ext: WWP, no edema Discharge Medications: The following medications have been prescribed for you. If you notice any adverse reactions to your medications, please contact your primary care physician immediately or go to the nearest Emergency Department. Medications prior to admission that will be resumed at discharge: Medication Sig Dispense Refill ??? LACTOBACILLUS ACIDOPHILUS (ACIDOPHILUS ORAL) Take by mouth 2 times daily. ??? albuterol (PROVENTIL HFA;VENTOLIN HFA) 90 mcg/actuation inhaler Inhale 2 puffs into the lungs 2 times daily. Use with spacer ??? pantoprazole (PROTONIX) 40 mg tablet Take 40 mg by mouth 2 times daily. ??? solifenacin (VESICARE) 5 mg tablet Take 5 mg by mouth daily. ??? levothyroxine (SYNTHROID) 75 mcg tablet Take 75 mcg by mouth daily. ??? CYANOCOBALAMIN, VITAMIN B-12, (VITAMIN B-12 ORAL) Take by mouth daily. ??? traZODone (DESYREL) 50 mg tablet Take 50 mg by mouth nightly. ??? multivitamin (THERAGRAN) tablet Take 1 tablet by mouth daily. ??? sucralfate (CARAFATE) 1 gram tablet Take 1 g by mouth 4 times daily. ??? celecoxib (CELEBREX) 200 mg capsule Take 200 mg by mouth 2 times daily. ??? amitriptyline (ELAVIL) 25 mg tablet Take 25 mg by mouth as needed. ??? FLUoxetine (PROZAC) 40 mg capsule Take 40 mg by mouth daily. ??? fluticasone-salmeterol (ADVAIR) 250-50 mcg/dose diskus inhaler Inhale 1 puff into the lungs every 12 hours. ??? simvastatin (ZOCOR) 20 mg tablet Take 20 mg by mouth nightly. ??? magnesium hydroxide (MILK OF MAGNESIA) 2,400 mg/10 mL suspension Take by mouth as needed. ??? SUMAtriptan (IMITREX) 25 mg tablet Take 25 mg by mouth as needed. New medications prescribed at discharge: Medication Sig Dispense Refill ??? OXYcodone (ROXICODONE) 5 mg/5 mL solution Take 5 mLs by mouth every 4 hours as needed for Pain. 150 mL 0 PCP: Kimberley Rod MD, Scheduled Appointments: The following appointments have been scheduled on your behalf: Future Appointments Date Time Provider Department Center 10/24/2012 4:20 PM Brigid Pa MD [facility] Outpatient Services/Studies: No discharge procedures on file. Provider Instructions Call your doctor if you develop: Fever greater than 101.3 degrees Farenheit (38.5 degrees Celcius), chills, nausea or vomiting. Also call if you develop severe pain not relieved by your prescribed oral pain medicine. CALL THE GENERAL SURGERY CLINIC DURING WORKING HOURS AT , OR CALL AFTER CLINIC HOURS, WEEKENDS AND HOLIDAYS: ASK FOR THE GENERAL SURGERY RESIDENT SENIOR PLANNER IF ANY OF THE ABOVEOCCUR. Activity level: Increase your activity slowly. You may tire easily, so frequent rest periods may be necessary. Do not lift more than 10 pounds for 4 weeks. Walk three times a day. Use common sense. Don't exhaust yourself. Diet: You should follow a post Corrie diet, as instructed by the avid editor in the hospital for a periodof approximately 3 weeks. The main purpose of this diet is to have you consume foods that will slideeasily down into your stomach. Most foods when well chewed should pass through the esophagus and into your stomach. However, patients do not always chew foods well enough. Slow, thorough chewing is recommended. Moistening foods with sauce, gravy, syrup or other liquids can be helpful. You should consume only very soft, small particle foods. You should not eat bread or drink carbonated beverages. You should start with more bland foods and if these are tolerated you may increase the amount of spice inyour food. If you find there are foods that don't agree with you, try these sparingly until you can tolerate them. You need to remain in an upright position for 30-60 minutes after you eat. You may find that you need to eat smaller meals with frequent between meal snacks to get enough calories. Pills: Please crush all pills for 4 weeks. Pain: Roxicodone elixir for pain, as directed. Driving: Do not drive while taking narcotic pain medications such as Roxicodone. Shower/Bath: You may shower and let water run over wound 48 hours after your surgery. No soaking baths or swimming for 2 weeks from surgery. Wound Care: Once showering, wash your incision(s) daily with soap and rinse well, pat dry. Assess for any signs of infection such as increased redness, pain, warmth or drainage. The Steri-Strips will fall off in 7-10 days. The brown bandaids can be removed at any time. Follow-up: You have a follow-up appointment scheduled to see Dr. Pa at the [facility]. You will receive a letter in the mail confirming the appointment date and time. Your follow-up is very important to us. Please call [phone] if you do not hear from us within 7 days of discharge or if you need to change the appointment date/time. Special Instructions Given to Patient at Discharge: An After Visit Summary was printed and given to the patient. CC: Kimberley Rod MD Signed: GENERAL SURGERY 09/29/2012 Op Note - Brigid Pa MD - 09/28/2012 3:46 PM EST [facility] [place] Patient Name: Priscila Gaspar : [id number] MR#: [id number] Case Date: 09/28/2012 Surgeon: Surgeon(s) and Role: * Brigid Pa MD - Primary * Tony Prakash MD - Fellow Preoperative diagnosis: GERD/FAILED CORRIE Postoperative diagnosis: GERD/FAILED CORRIE Procedure(s): ENDOSCOPY, UPPER GI, DIAGNOSTIC, WITH OR WITHOUT SPECIMENS LAPAROSCOPIC REVISION OF CORRIE FUNDOPLASTY Date of Operation: 09/28/2012. Preoperative Diagnosis: Recurrent gastroesophageal reflux disease. Postoperative Diagnosis: Same. Procedure Performed: Diagnostic laparoscopy, significant lysis of adhesions, upper GI endoscopy, and closure of stomach enterotomy. Surgeons: Brigid Pa M.D. and Tony English M.D. Anesthesia: General endotracheal anesthesia. Complications: None. Indications for Surgery: Patient is a 62-year-old female who had undergone a laparoscopic Corrie fundoplication and hiatal hernia repair back in 1994. She did well for a period of time. However, more recently she has developed significant gastroesophageal reflux disease, regurgitation, and some dysphagia. Preoperative evaluation at this point has included upper GI endoscopy, pH probe testing, and esophageal manometry. She also has biopsy-proven Storey's esophagus. Manometry has demonstrated a very weakened motility in the body of the esophagus requiring partial fundoplication. Following review of her therapeutic options, she has elected to undergo a laparoscopic revision of her fundoplication and likely conversion to a partial fundoplication. Findings at the Time of Surgery: Patient had incredibly dense adhesions from her previous fundoplication to both the liver, diaphragm, and the stomach was essentially fused to the diaphragm on the left side of the esophagus and on the right side it essentially fused to the stomach. Despite careful dissection techniques, bleeding from the liver as well as an enterotomy in the wrapped portion of the stomach on the left. Seeing the amount of adhesions this was very atypical of reoperative fundoplication surgery, and I am not sure what happened at the initial operation but this was a much greater than typical adhesions. I did not feel we could proceed safely without the risk of multiple additional enterotomies in this patient where the indication was recurrent reflux and not a life-threatening process. Therefore, the decision was made to back off from the surgery following closure of the enterotomy and the endoscopy to confirm no leak, and we will continue her on medical therapy. Details of the Operation: Patient was brought to the Operating Room and placed in a supine position following uneventful induction of general endotracheal anesthesia. Orogastric tube was placed as well as Venodyne stockings and a Dick catheter. Her legs were split using straight-leg extensions. Her abdomen was prepped and draped in the usual sterile fashion. A small incision was made just below the left costal margin in the midclavicular line. Through this a Veress needle was placed in the peritoneal cavity, and pneumoperitoneum to 15 mmHg pressure was obtained without difficulty. The first trocar was a 10-mm trocar placed 15 cm inferior to the xiphoid just left of midline. Through this a 45-degree laparoscope was inserted. All remaining trocars were inserted under direct visualization. The next trocar was a 10-mm trocar placed 10 cm along the left costal margin. The next trocar was a 5-mm trocar placed 20 cm along the left costal margin. The next trocar was a 5-mm trocar placed midway between the left lateral trocar on the umbilicus. Through these lateral trocars we then took down adhesions in the right upper quadrant. Patient had had a previous right upper quadrant incision from an open cholecystectomy. We also opened up the falciform ligament. This exposed adequate abdominal wall in the right upper abdomen to place an additional 10-mm trocar. Through this a fan retractor was positioned below the left lobe of the liver which was then retracted cephalad revealing extensive adhesions between the undersurface of the left lobe of the liver and the previous surgery for her fundoplication in 1994. Using careful sharp and blunt dissection we were able to further mobilize these adhesions off the liver to further retract the liver. We then turned our attention to the greater curvature of the stomach. At best a minimal amount of short gastric vessels had been divided beginning roughly at the initial surgery. Therefore, we performed this portion of the operation by beginning one-half of the way down the greater curvature of the stomach. All short gastric vessels and posterior gastric attachments were taken down using Harmonic scalpel up to the angle of His. Further attempts to develop a plane between the stomach and the left shruthi of the diaphragm were essentially impossible given the level of fibrosis and scarring at this level. There was essentially no discernible plane between the shruthi of the diaphragm and the stomach at this level, which was extremely atypical on reoperative cases. We then tried further to dissect the superior aspect of the undersurface of the left lobe off the region where the fundoplication was though to be, although the stomach at that level was not visible due to the periesophageal fat. Again, despite trying to develop a plane at this level it was densely fused much more than typical to the fundus, and bleeding from the liver occurred. We were able to control that with hemostasis and clips and then turned our attention to the anterior aspect of the fundus where it went to esophageal hiatus, and despite careful dissection an enterotomy was performed. This was clearly on the stomach. This was oversewn using interrupted sutures of 2-0 Nurolon. We then performed an intraoperative upper GI endoscopy to insufflate the stomach while inflating the abdomen with saline to confirm that there was no additional missed enterotomies or leak from the area that we had closed. This was intact using the saline insufflation test, and the stomach was then further inspected. With retroflexed view of the stomach showed what appeared to be a partial fundoplication still present. It had a more typical world appearance of the gastric folds that one generally sees when the short gastric vessels are not taken adequately at the first operation. There was definitely a fundoplication present. She had changes in the distal esophagus that appeared to be consistent with short segment Storey's esophagus but no active esophagitis. The stomach was then decompressed using the gastroscope, and the gastroscope was removed. Based upon the incredibly dense adhesions that we saw and the inability to develop a plane either between the stomach and the liver or the stomach and the diaphragm and we never saw the initial sutures placed for the initial fundoplication and therefore had no opportunity to divide even that aspect of the operation, that combined with her poor esophageal motility, knowing that at best we would only be able to offer her a partial fundoplication, the decision was made to back off rather than proceed and run the risk of additional injury to the structures in the region of the esophageal hiatus. Therefore, the abdomen was irrigated. Excellent hemostasis was assured. The liver retractor was released and removed. All trocars were removed under direct visualization to assure hemostasis at the insertion site, and the pneumoperitoneum was evacuated. All trocar sites were closed at the skin level using a running subcuticular closure of 4-0 Vicryl, followed by Steri-Strips, followed by Band-Aids. Overall she tolerated the procedure well and was taken to the Recovery Room postop in stable condition. OR Attestation - Brigid Pa MD - 09/28/2012 2:43 PM EST Attestation: Case Date: 09/28/2012 I performed this without a resident BRIGID PA MD 09/28/2012 Brief Op Note - Brigid Pa MD - 09/28/2012 2:41 PM EST Brief Operative Note Patient Name: Priscila Gaspar : [id number] MR#: [id number] Case Date: 09/28/2012 Surgeon: Surgeon(s) and Role: * Brigid Pa MD - Primary * Tony Prakash MD - Fellow Preoperative diagnosis: GERD/FAILED CORRIE Postoperative diagnosis: GERD/FAILED CORRIE Procedure(s): ENDOSCOPY, UPPER GI, DIAGNOSTIC, WITH OR WITHOUT SPECIMENS LAPAROSCOPIC REVISION OF CORRIE FUNDOPLASTY Anesthesia: General Findings: old fundoplication densely adherent to diaphragm/liver/esophagus. Unable to proceed safelydue to scarring at this level Complications: stomach enterotomy Fluids: 1700cc Estimated Blood Loss: 14cc Drains: none Disposition: pacu Condition: stable (Please see the Surgical Encounter Summary for any Implant and Specimen details pertinent to this patient.) Miscellaneous - Provider, Scanning - 09/28/2012 1:22 PM EST documented in this encounter Plan of Treatment Not on filedocumented as of this encounter Procedures Procedure Name Priority Date/Time Associated Comments Diagnosis DIFFERENTIAL, Routine 09/29/2012 4:31 AM Results for this AUTOMATED EST procedure are i n the results section. CBC (WITH DIFF) Routine 09/29/2012 4:31 AM Result s for this EST procedure are i n the results section. BASIC METABOLIC PANEL Routine 09/29/2012 4:31 AM Results for this (NON-FASTING) EST procedure are in the results section. LAPAROSCOPIC REVISION 09/28/2012 12:30 GERD/FAILED NIS SEN OF CORRIE FUNDOPLASTY PM EST (WRVU *) ENDOSCOPY, UPPER GI, 09/28/2012 12:30 GERD/FAILED NISS EN DIAGNOSTIC, WITH OR PM EST WITHOUT SPECIMENS ABO/RH TYPING Routine 09/28/2012 11:57 Results fo r this AM EST procedure are i n the results section. ANTIBODY SCREEN Routine 09/28/2012 11:57 Results for this AM EST procedure are i n the results section. TYPE AND SCREEN Routine 09/28/2012 11:57 [place] [place] AM EST documented in this encounter Results (ABNORMAL) Differential, Automated (09/29/2012 4:31 AM EST) [facility] gist Method Time Signature Neutrophils % 74.1 (H) 34.0 - CERNER 71.0 % MILLENNIUM Neutr Abs (ANC) 5.63 1.50 - CERNER 6.30 MILLENNIUM x10(3)/mc L Lymphocytes % 17.6 (L) 19.0 - CERNER 53.0 % MILLENNIUM Lymphocytes Abs 1.3 1.0 - 3.6 CERNER x10(3)/mc MILLENNIUM L Monocytes % 8.0 4.0 - CERNER 13.0 % MILLENNIUM Monocyte Abs 0.6 0.2 - 1.0 CERNER x10(3)/mc MILLENNIUM L Eosinophils % 0.1 0.0 - 7.0 CERNER % MILLENNIUM Eosinophils Abs 0.0 0.0 - 0.5 CERNER x10(3)/mc MILLENNIUM L Basophils % 0.1 0.0 - 2.0 CERNER % MILLENNIUM Basophils Abs 0.0 0.0 - 0.2 CERNER x10(3)/mc MILLENNIUM L Immature Gran % 0.10 0.00 - CERNER 0.66 % MILLENNIUM Comment: Immature granulocytes(IG's)percentage an d absolute count will include metamyelocytes, myelocytes, and promyelo cytes. Blood smears from CBCs yielding IG's will be scanned manually for concor dance. If this scan disagrees with the automated IG or if promyelocytes are not ed, a manual differential will be performed. Dinora Gran Abs 0.01 0.00 - 0.05 x10(3)/mcL CER NER MILLENNIUM Specimen Anatomical Collection Method Collection Time Receive d Time (Source) Location / / Volume Laterality Blood specimen 09/29/2012 4:31 AM 013 4:47 (specimen) EST AM EST Tony Prakash MD HEMATOLOGY ORDERABLES Performing Organization Address City/State/[place] [address] CERNER MILLENNIUM (ABNORMAL) Basic Metabolic Panel (non-fasting) (09/29/2012 4:31 AM EST) P athologist Signature Glucose Lvl 114 60 - 199 CERNER mg/dL MILLENNIUM Comment: Diabetes: >=200 mg/dL plus symp toms BUN 10 8 - 18 mg/dL CERNER MILLENNIUM Creatinine 0.68 (L) 0.70 - 1.20 mg/dL CERNER MILL ENNIUM Comment: Please note that the pediatric reference intervals supplied above were not validated at [facility] [place] Results from pediatri c patients should be interpreted in conjunction to the patient's age, height and muscle mass. Sodium 139 135 - 145 mmol/L CERNER [place] NIUM Potassium 4.7 3.5 - 5.0 mmol/L CERNER [place] Comment: Please note: ??Patients with WBC >100,00 0 may have falsely elevated Potassium levels. ??For accurate Potassium quantif ication in these patients send serum separator tube (gold top) for subsequent determinations. ??Contact the Clinical Chemistry Laboratory if there are any qu estions. Chloride 103 98 - 107 mmol/L CERNER MILLENN IUM CO2 28 22 - 31 mmol/L CERNER MILLENNI UM Anion Gap 8 5 - 15 mmol/L CERNER MILLENNIU M Calcium 8.7 8.5 - 10.5 mg/dL CERNER [place] NIUM Estimated GFR >60 >=60 CERNER MILLENNIU M Comment: The National Kidney Disease Education Pr ogram (NKDEP) has recommended all laboratories report estimated GFR (eGFR) along with plasma creatinine measurements to assist you with recognit ion of early kidney disease. Caveats: ??Plasma creatinine should be a t steady-state (unchanged within the past week). For patient s multiply eGFR by 1.2. The MDRD equation was developed using patients be tween the ages of 18 and 70 years. ?? The MDRD equation has not been validated for patients < 18 years of age and should not be used to assess renal function in the pediatric population. ??The MDRD eGFR equation will also overestimate the true GFR of patients above the age of 70. ??This overestimation is variable bu t increases with age. At present, NKDEP does NOT recommend i ng the MDRD equation for drug dosing purposes and pharmacists should continue to use their current dosing methods. In addition, numerical eGFR values great er than 60 ml/min/1.73 square meters should be treated as > 60, and not an ex act number due to greater inaccuracies at these higher values. Per NKDEP, they classify normal renal function as any GFR >60ml/min/1.73 square meters; chronic kidney disease wh en GFR <60, and renal failure when GFR <15. ??This calculation may not be valid for patients with atypical muscle mass (very lean or obese), acute renal failur e, and in patients with diabetic kidney disease. References: http://nkdep.nih.gov/resources/NKDEP_Sug gestn4Labs_0606_508.pdf http://www.kidney.org/professionals/kls/ pdf/faq_gfr.pdf Rex K, Adry NA, Edith AK, Chacho TS, Valerie AD, Brien BRUNA. Relative performance of the MDRD and CKD-EPI equa tions for estimating glomerular filtration rate among patients with vari ed clinical presentations. Clin J Am Soc Nephrol;6:1963-72. Specimen Anatomical Collection Method Collection Time Receive d Time (Source) Location / / Volume Laterality Blood specimen 09/29/2012 4:31 AM 013 4:47 (specimen) EST AM EST Resulting Agency Comment Spec In Lab Tony Prakash MD CHEMISTRY ORDERABLES Performing Organization Address City/State/ZIP Code Phon e Number [place] [phone] CERNER MILLENNIUM (ABNORMAL) CBC (with Diff) (09/29/2012 4:31 AM EST) P athologist Signature WBC 7.6 4.0 - 10.0 CERNER x10(3)/mcL MILLENNIUM RBC 3.83 (L) 3.93 - CERNER 5.22 MILLENNIUM x10(6)/mcL Hemoglobin 10.4 (L) 11.2 - CERNER 15.7 gm/dL MILLENNIUM Hematocrit 32.8 (L) 34.0 - CERNER 45.0 % MILLENNIUM MCV 85.6 79.0 - CERNER 94.0 fL MILLENNIUM MCH 27.2 26.6 - CERNER 32.2 pg MILLENNIUM MCHC 31.7 (L) 32.0 - CERNER 36.5 gm/dL MILLENNIUM Platelets 207 145 - 370 CERNER x10(3)/mcL MILLENNIUM RDWSD 45.0 35.0 - CERNER 46.0 fL MILLENNIUM RDWCV 14.4 10.9 - CERNER 14.4 % MILLENNIUM MPV 11.2 9.0 - 12.0 [facility] Specimen Anatomical Collection Method Collection Time Receive d Time (Source) Location / / Volume Laterality Blood specimen 09/29/2012 4:31 AM 013 4:47 (specimen) EST AM EST Resulting Agency Comment Spec In Lab Tony Prakash MD HEMATOLOGY ORDERABLES Performing Organization Address City/[facility]/[place] [address] [facility] Antibody screen (09/28/2012 11:57 AM EST) [facility] Time Signature Ab Screen Negative [facility] Expires at [id number] [facility] [id number] on: [facility] Specimen Anatomical Collection Method Collection Time Receive d Time (Source) Location / / Volume Laterality Blood specimen 09/28/2012 11:57 3 (specimen) AM EST 11:57 AM EST Resulting Agency Comment Spec In Lab Stefany Griffin MD BLOOD BANK ORDERABLES Performing Organization Address City/[facility]/ZIP Code Phon e Number [address] [facility] ABO/Rh Typing (09/28/2012 11:57 AM EST) athologist Signature ABORh Type A Neg [facility] Specimen Anatomical Collection Method Collection Time Receive d Time (Source) Location / / Volume Laterality Blood specimen 09/28/2012 11:57 3 (specimen) AM EST 11:57 AM EST Resulting Agency Comment Spec In Lab Stefany Griffin MD BLOOD BANK ORDERABLES Performing Organization Address City/[facility]/ZIP [facility] [place] [place] [address] [facility] documented in this encounter Visit Diagnoses Not on filedocumented in this encounter Administered Medications Inactive Administered Medications - up to 3 most recent administrations Medication Order MAR Action Action Date Dose Rate Site albuterol (PROVENTIL HFA;VENTOLIN Given 09/29/2012 8:21 AM EST 2 puffs HFA) 90 mcg/actuation inhaler 2 puff 2 puff, Inhalation, 2 TIMES DAILY, First dose on Arleth 2/7/13 at 2100, Until Discontinued, Routine esomeprazole (NEXIUM) injection 40 mg Given 09/29/2012 8:21 AM EST 40 mg 40 mg, Intravenous, DAILY, First dose on Arleth 09/28/12 at 1730, Until Discontinued Given 09/28/2012 6:19 PM EST 40 mg fluticasone-salmeterol (ADVAIR) 250-50 Given 09/29/2012 8:21 AM EST 1 puff mcg/dose diskus inhaler 1 puff 1 puff, Inhalation, EVERY 12 HOURS SCHEDULED (2 times per day), First dose on Arleth 09/28/12 at 2100, Until Discontinued, Rinse mouth after administration, Routine Given 09/28/2012 9:00 PM EST 1 puff HYDROmorphone (DILAUDID) injection 0.2-0 .4 mg Given 09/28/2012 4:35 PM EST 0.2 mg 0.2-0.4 mg, Intravenous, EVERY 5 MIN PRN, Starting on Arleth 09/28/12 at 1456, Until Arleth 09/28/12 at 1638, Pain, For moderate pain give: 0.2 mg every 5 minute prn For severe pain give: 0.4 mg every 5 minutes prn Maximum dose: 4 mg per hour Hold for respiratory rate less than 10 per minute., PACU Recovery, Routine Given 09/28/2012 4:19 PM EST 0.4 mg Given 09/28/2012 4:10 PM EST 0.4 mg ketorolac (TORADOL) injection 15 mg Given 09/29/2012 6:00 AM EST 15 mg 15 mg, Intravenous, EVERY 6 HOURS SCHEDULED, 20 doses, First dose on Arleth 09/28/12 at 1800, Last dose on Tue10/03/12 at 1200, Routine Given 09/29/2012 12:00 AM EST 15 mg Given 09/28/2012 6:19 PM EST 15 mg lactated ringers infusion 1,000 New Bag 09/28/2012 11:45 AM ES T 1,000 mLs 100 mL/hr mL 1,000 mL, at 100 mL/hr, Intravenous, CONTINUOUS, Starting on Arleth 09/28/12 at 1145, Until Arleth 09/28/12 at 1651, Day of Surgery (Day of Procedure) lactated ringers infusion 1,000 New Bag 09/28/2012 3:30 PM EST 1,000 mLs 100 mL/hr mL 1,000 mL, at 100 mL/hr, Intravenous, CONTINUOUS, Starting on Tue09/28/12 at 1545, Until Tue09/29/12 at 0809 morphine 1 mg/mL ANTIQUE FURNITURE RESTORER 30 mL Rate/Dose Verify 09/28/2012 5:08 PM EST mL/hr Intravenous, ANTIQUE FURNITURE RESTORER ONLY, Starting on Tue09/28/12 at 1545, Until Tue09/29/12 at 0715 New Syringe/Cartridge 09/28/2012 3:30 PM EST mL/hr OXYcodone (ROXICODONE) 5 mg/5 mL solutio n 5 mg Given 09/29/2012 11:06 AM EST 5 mg 5 mg, Oral, EVERY 4 HOURS PRN, Starting on Tue09/29/12 at 0714, Until Tue09/29/12 at 1356, Pain, Routine sodium chloride 0.9 % flush 5 mL Given 09/28/2012 3:10 PM EST 5 mLs 5 mL, Intravenous, EVERY 12 HOURS, First dose on Tue09/28/12 at 1145, Until Discontinued, Day of Surgery (Day of Procedure) sodium chloride 0.9 % flush 5 mL Given 09/28/2012 3:15 PM EST 5 mLs 5 mL, Intravenous, EVERY 12 HOURS, First dose on Tue09/28/12 at 1145, Until Discontinued, Day of Surgery (Day of Procedure) sodium chloride 0.9 % flush 5 mL Given 09/29/2012 5:15 AM EST 5 mLs 5 mL, Intravenous, EVERY 12 HOURS, First dose on Tue09/28/12 at 1715, Until Discontinued Given 09/28/2012 5:15 PM EST 5 mLs documented in this encounter Active and Recently Administered Medications Times are shown in EST. Scheduled Medication Order 09/27/2012 09/28/2012 09/29/2012 albuterol (PROVENTIL HFA;VENTOLIN HFA) 9 0 mcg/actuation inhaler 2 puff (CANCELED) 2100 (Not Given - Provider: Negrita Carrillo RN - Reason: Patient/family refused) 0821 (Given - Provider: Angie Harry RN) 2 puff, Inhalation, 2 TIMES DAILY, First dose on Tue09/28/12 at 2100, Until Discontinued, Routine esomeprazole (NEXIUM) injection 40 mg (CANCELED) 181 (Given - Provider: Angie Harry RN) 0821 (Given - Provider: Angie Harry RN) 40 mg, Intravenous, DAILY, First dose on Arleth 09/28/12 at 1730, Until Discontinued, Routine fluticasone-salmeterol (ADVAIR) 250-50 m cg/dose diskus inhaler 1 puff (CANCELED) 2100 (Given - Provider: Negrita Carrillo , [place]) 0821 (Given - Provider: Angie Harry RN) 1 puff, Inhalation, EVERY 12 HOURS SCHED ULED (2 times per day), First dose on Arleth 09/28/12 at 2100, Until Discontinued, Rinse mouth after administration, Routine ketorolac (TORADOL) injection 15 mg (CANCELED) 1818 (Given - Provider: Angie Harry RN) 0000 (Given - Provider: Negrita Carrillo RN)0600 (Given - Provider: Negrita Carrillo RN) 15 mg, Intravenous, EVERY 6 HOURS SCHEDU LED, 20 doses, First dose on Tue09/28/12 at 1800, Last dose on Tue10/03/12 at 1200, Routine sodium chloride 0.9 % flush 5 mL (CANCELED) 1510 (Given - Provider: Yaima Daniel RN) 5 mL, Intravenous, EVERY 12 HOURS, First dose on Arleth 09/28/12 at 1145, Until Discontinued, Day of Surgery (Day of Procedure), Routine sodium chloride 0.9 % flush 5 mL (CANCELED) 1515 (Given - Provider: Yaima Daniel, [place]) 5 mL, Intravenous, EVERY 12 HOURS, First dose on Arleth 09/28/12 at 1145, Until Discontinued, Day of Surgery (Day of Procedure), Routine sodium chloride 0.9 % flush 5 mL (CANCELED) 1715 (Given - Provider: Angie Harry RN) 0515 (Given - Provider: Negrita Carrillo , [place]) 5 mL, Intravenous, EVERY 12 HOURS, First dose on Arleth 09/28/12 at 1715, Until Discontinued, Routine Continuous Medication Order 09/27/2012 09/28/2012 09/29/2012 lactated ringers infusion 1,000 mL (CANCELED) 1145 (New Bag - Provider: Yaima Daniel RN - Comment: initiated preop/by other) 1,000 mL, at 100 mL/hr, Intravenous, CON TINUOUS, Starting Arleth 09/28/12 at 1145, Until Arleth 09/28/12 at 1651, Day of Surgery (Day of Procedure) lactated ringers infusion 1,000 mL (CANCELED) 1530 (New Bag - Provider: Yaima Daniel RN) 0852 (Stopped - Provider: Angie bass, [place]) 1,000 mL, at 100 mL/hr, Intravenous, CON TINUOUS, Starting Arleht 09/28/12 at 1545, Until 09/29/12 at 0809 morphine 1 mg/mL ANTIQUE FURNITURE RESTORER 30 mL (CANCELED) 15 30 (New Syringe/Cartridge - Provider: Yaima Daniel RN)1708 (Rate/Dose Verify - Provider: Angie Harry, [place]) 0815 (Stopped - Provider: Angie Harry, [place]) Intravenous, ANTIQUE FURNITURE RESTORER ONLY, Starting Arleth 09/28/12 at 1545, Until 04/03 at 0715 PRN Medication Order 09/27/2012 09/28/2012 09/29/2012 BUpivacaine (PF) (MARCAINE) 0.25 % (2.5 mg/mL) injection (CA NCELED) 1325 (Given - Provider: Brigid Pa MD) ONCE PRN, Starting Arleth 09/28/12 at 1325, U ntil Arleth 09/28/12 at 1651, Intra-Operative (Intra-Procedure), Routine ceFAZolin (ANCEF) injection (CANCELED) 1 301 (Given - Provider: Kayce Wang CRNA) ONCE PRN, Starting Arleth 09/28/12 at 1301, U ntil Arleth 09/28/12 at 1651, Intra-Operative (Intra-Procedure), Routine HYDROmorphone (DILAUDID) injection 0.2-0.4 mg (CANCELED) 1610 (Given - Provider: Stepheni L Daniel, RN)1619 (Given - Provider: Yaima Daniel RN)1635 (Given - Provider: Yaima Daniel RN) 0.2-0.4 mg, Intravenous, EVERY 5 MIN PRN , Starting Arleth 09/28/12 at 1456, Until Arleth 09/28/12 at 1638, Pain, For moderate pain give: 0.2 mg every 5 minute prn For severe pain give: 0.4 mg every 5 minutes prn Maximum dose: 4 mg per hour Hold for res piratory rate less than 10 per minute., PACU Recovery, Routine OXYcodone (ROXICODONE) 5 mg/5 mL solution 5 mg 1106 (Given - Provider: Angie Harry RN) 5 mg, Oral, EVERY 4 HOURS PRN, Starting 09/29/12 at 0714, Until 09/29/12 at 1356, Pain, Routine documented in this encounter Care Teams Raw Shellfish Preparer Relationship Specialty Start Date End Date Kimberley Rod MD PCP - General 07/14/10 05/11/21 [address] [place] [address] documented as of this encounter
--- OUTSIDE RECORDS SUMMARY | 2022-07-23 00:58 | XMS_ITS | Encounter Summary ---
:1950 Author Organization [facility] [place] [address] Care Team Providers Name Role Phone Kimberley Rod MD Primary Care Provider Reason for Visit Reason Onset Date Comments Medication Refill 10/10/2012 Encounter Details Date Type Department Care Team Description 10/10/2012 Refill General Surgery at [facility] Angle Landa, [place] [address] Social History Tobacco Use Types Packs/Day Years Used Date Smoking Tobacco: Former Cigarettes 1 30 Quit : 02/10/2003 Alcohol Use Standard Drinks/Week Comments Yes 0 (1 standard drink = 0.6 oz pure alcoho l) minimal- rarely social Sex Assigned at Date Recorded Not on file documented as of this encounter Plan of Treatment Not on filedocumented as of this encounter Visit Diagnoses Not on filedocumented in this encounter Care Teams Operations Supervisor 2Nd Shift Relationship Specialty Start Date End Date Kimberley Rod MD PCP - General 07/14/10 05/11/21 [address] [place] [address] documented as of this encounter
--- OUTSIDE RECORDS SUMMARY | 2022-07-23 00:58 | XMS_ITS | Encounter Summary ---
:1950 Author Organization [facility] Address [address] [place] [address] Care Team Providers Name Role Phone Kimberley Rod MD Primary Care Provider Reason for Visit Reason Onset Date Comments Other 08/02/2012 Return Pt Call Encounter Details Date Type Department Care Team Description 08/02/2012 Telephone Gastroenterology at [facility] Ashley Rushing Other (Return Pt [facility] D rive Call) [place] [phone] Social History Tobacco Use Types Packs/Day Years Used Date Smoking Tobacco: Former Cigarettes Quit : 02/10/2003 Sex Assigned at Date Recorded Not on file documented as of this encounter Miscellaneous Notes Telephone Encounter - Ashley Rushing - 08/02/2012 11:18 AM EST Pt returned my call after hrs yesterday and this am when I was not here; left 2 vms. Called her backat home; says she'll be home for lunch and will try me again then. Tried her at work but, again, does not seem like secure vm so [place] not [place] [facility] [place] documented in this encounter Plan of Treatment Not on filedocumented as of this encounter Visit Diagnoses Not on filedocumented in this encounter Care Teams Taker Away Relationship Specialty Start Date End Date Kimberley Rod MD PCP - General 07/14/10 05/11/21 [address] [place] [address] documented as of this encounter
--- OUTSIDE RECORDS SUMMARY | 2022-07-23 00:58 | XMS_ITS | Encounter Summary ---
:1950 [place] [address] Care Team Providers Name Role Phone Kimberley Rod MD Primary Care Provider Encounter Details Date Type Department Care Team Description 09/28/2012 Anesthesia Event Main Operating Room Stefany Duncan MD [facility] [address] [place] [address] [facility] Carlos Alberto Galvez MD [facility] [place] [address] [place] [address] Anesthesia Record Procedure Summary Procedure Name Responsible Anesthesia Start Anesthesia Stop Time Anesthesiologist Time ENDOSCOPY, UPPER Stefany Griffin MD 09/28/12 1234 09/28/12 1 506 GI, DIAGNOSTIC, WITH OR WITHOUT SPECIMENS (Abdomen) Events Date Time Event Comment 09/28/2012 1137 1234 Start 1506 Stop No medications on file. Agents No agents on file. Blood No blood administrations on file. Lines, Drains, and Airways Type Details Placement Removal Urethral Catheter 09/28/12; indwelling 09/28/12 0000 by Placido, 1455 by double lumen coude tip [place] Villa Val entina, RN catheter; 100% silicone; 16; inserted; drainage bag to dependent drainage; 09/28/12; 1455 PIV 09/28/12; 09/29/12; 1051 09/28/12 0000 by Placido, 09/29/12 1051 by [place] Bethan y A RN Incision 09/28/12; (placed in 09/28/12 0000 by Daniel, 04/03 1051 by OR); abdomen; 09/29/12; [place] Bethany A, 1051 RN PIV 09/28/12; 1209; 09/28/12 1209 by 09/29/12 1051 b y 09/29/12; 1051 Catarina Meza RN Albrecht, Bethany A RN documented in this encounter Social History Tobacco Use Types Packs/Day Years Used Date Smoking Tobacco: Former Cigarettes 1 30 Quit : 02/10/2003 Alcohol Use Standard Drinks/Week Comments Yes 0 (1 standard drink = 0.6 oz pure alcoho l) minimal- rarely social Sex Assigned at Date Recorded Not on file documented as of this encounter OR Notes Anesthesia Postprocedure Evaluation - Stefany Griffin MD - 09/29/2012 12:43 PM EST Patient: Priscila Gaspar Procedure(s) Performed: Procedure(s): ENDOSCOPY, UPPER GI, DIAGNOSTIC, WITH OR WITHOUT SPECIMENS LAPAROSCOPIC REVISION OF JERRY FUNDOPLASTY Patient location: PACU Post-op pain: Adequate analgesia Post-op nausea: no nausea or vomiting Last Vitals: Filed Vitals: 09/29/12 0726 BP: 138/52 Pulse: 67 Temp: 36.7 ??C (98.1 ??F) Resp: 20 Post-op cardiovascular and respiratory status: is stable Level of consciousness: awake, alert and oriented Complications: no apparent complications, tolerated the procedure well and no evidence of recall Fluid Status: normal Anesthesia Preprocedure Evaluation - Stefany Griffin MD - 09/27/2012 3:35 PM EST Today I evaluated Priscila Gaspar a 62 y.o. female. Procedure(s): LAPAROSCOPIC REVISION OF JERRY FUNDOPLASTY ENDOSCOPY, UPPER GI, DIAGNOSTIC, WITH OR WITHOUT SPECIMENS Patient Active Problem List Diagnoses ??? GERD (gastroesophageal reflux disease) ??? Urge incontinence No past medical history on file. No past surgical history on file. History Substance Use Topics ??? Smoking status: Former Smoker Quit date: 02/10/2003 ??? Smokeless tobacco: Not on file ??? Alcohol Use: Not on file Allergies Allergen Reactions ??? Latex CIS - BREAK OUT ??? Dextrose CIS - ASTHMA ??? Gloves, Latex CIS - BREAK OUT ??? Latex Dams CIS - BREAK OUT ??? Psyllium ??? Psyllium Seed CIS - ASTHMA ??? Reglan (Metoclopramide Hcl) Chest palpitations and pain. ??? Sucrose CIS - ASTHMA Medications: MAR and/or home medications have been reviewed. Physical Exam: There were no vitals filed for this visit. There is no height or weight on file to calculate BMI. Airway Assessment: Mallampati: I TM distance: <3 FB Neck ROM: full Cardiovascular Assessment: cardiovascular exam normal Pulmonary Assessment: breath sounds clear to auscultation pulmonary exam normal Dental Assessment: - normal exam [facility] Assessment: IV access: Peripheral line Anesthesia Plan: ASA 2 general, with a(n) intravenous induction 62 y/o F with esophageal dysmotility and GERD s/p Jerry, here for redo procedure. Sleeps with elevated HOB, + regurgitation with bending over and lying completely flat. Takes occasional vicodin for epigastric pain. Bout of bronchitis 2 weeks ago s/p 5 day course of PO steroids, today breathing feels e xcellent (h/o asthma). Had full cardiac w/u at OSH several months ago which was negative per pt., + 4 mets OK. Obese. GETTA, RSI. Second IV, a. Line if cuff pressures difficult 2/2 arm size. Informed Consent: Anesthetic plan and risks discussed with patient and spouse. Plan discussed with EARLY BREASTFEEDING CARE SPECIALIST. [facility]. Assessment: documented in this encounter Miscellaneous Notes Addendum Note - Toshia Mcmullen - 09/29/2012 12:46 PM EST Addendum created 09/29/12 1246 by Toshia Mcmullen Modules edited:Anesthesia Events, Anesthesia Responsible Staff, SmartForms SmartFormsVN Section for SmartForms 266 documented in this encounter Plan of Treatment Not on filedocumented as of this encounter Visit Diagnoses Not on filedocumented in this encounter Care Teams Tilt Tray Driver Relationship Specialty Start Date End Date Kimberley Rod MD PCP - General 07/14/10 05/11/21 [address] [place] [address] documented as of this encounter
--- OUTSIDE RECORDS SUMMARY | 2022-07-23 00:58 | XMS_ITS | Encounter Summary ---
:1950 Author Organization [facility] [place] [address] Care Team Providers Name Role Phone Kimberley Rod MD Primary Care Provider Encounter Details Date Type Department Care Team Description 09/28/2012 Surgery Main Operating Room Brigid Pa E NDOSCOPY, UPPER GI, Kayce Bhatti MD DIAGNOSTIC, WITH OR Hospital [facility] WITHOUT SPECIMENS [facility] [place] [address] [place] [id number] [phone] (Wo rk) Social History Tobacco Use Types [...] Sign Reading Time Taken Comments Blood Pressure 148/76 09/28/2012 4:15 PM EST Pulse 69 09/28/2012 4:15 PM EST Temperature 36.2 ??C (97.2 ??F) 09/28/2012 4:15 PM EST Respiratory Rate 16 09/28/2012 4:15 PM EST Oxygen Saturation 95% 09/28/2012 4:15 PM EST Inhaled Oxygen Concentration - - Weight 99.8 kg (220 lb) 09/28/2012 11:05 AM EST Height 165.1 cm (5' 5) 09/28/2012 11:05 AM EST Body Mass Index 36.61 09/28/2012 6:23 PM EST documented in this encounter Discharge Instructions Patient InstructionsSpaniolas, Tony, MD - 09/28/2012 3:07 PM EST Call [...] HOLIDAYS: ASK FOR THE GENERAL SURGERY RESIDENT TRANSPORT CONDUCTOR IF ANY OF THE ABOVEOCCUR. Activity level: Increase your activity slowly. You may tire easily, so frequent rest periods may be necessary. Do not lift more than 10 pounds for 4 weeks. Walk three times a day. Use common sense. Don't exhaust yourself. Diet: You should follow a post Corrie diet, as instructed by the bone density technician in the hospital for a periodof approximately [...] at the [facility]. You will receive a letter in the mail confirming the appointment date and time. Your follow-up is very important to us. Please call [phone] if you do not hear from us within 7 days of discharge or if you need to change the appointment date/time. AttachmentsThe following attachments cannot be sent through Care Everywhere. CORRIE FUNDOPLICATION: WHAT TO EXPECT AT HOME (KAZAKH)documented in this encounter Medications at Time of [...] and discharge planning. 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 Advance to Post-Corrie fulls today D/C PUBLIC TRANSPORTATION INSPECTOR and start oral pain control HLIV Continue [...] in this encounter Miscellaneous Notes Miscellaneous - Provider, Elisabet - 09/30/2012 12:04 PM EST Plan of [...] finding it over the counter. Richie Alexandre LUBE WORKER, up to talk to patient and her [...] PM Brigid Pa MD LEB SURG 4L [facility] Outpatient Services/Studies: No discharge procedures on file. [...] HOLIDAYS: ASK FOR THE GENERAL SURGERY RESIDENT TRANSPORT CONDUCTOR IF ANY OF THE ABOVEOCCUR. Activity level: Increase your activity slowly. You may tire easily, so frequent rest periods may be necessary. Do not lift more than 10 pounds for 4 weeks. Walk three times a day. Use common sense. Don't exhaust yourself. Diet: You should follow a post Corrie diet, as instructed by the bone density technician in the hospital for a periodof approximately [...] at the [facility]L. You will receive a letter in the mail confirming the appointment date and time. Your follow-up is very important to us. Please call [phone] if you do not hear from us within 7 days of discharge or if you need to change the appointment date/time. Special Instructions Given to Patient at Discharge: An After Visit Summary was printed and given to the patient. CC: Kimberley Rod MD Signed: GENERAL SURGERY 09/29/2012 Op Note - Brigid Pa MD - 09/28/2012 3:46 PM EST [facility] Operative Note Patient Name: Priscila Gaspar : [id number] MR#: [id number] Case Date: 09/28/2012 Surgeon: Surgeon(s) and Role: [...] Operative Note Patient Name: Priscila Gaspar : [id number] MR#: [id number] Case Date: 09/28/2012 Surgeon: Surgeon(s) and Role: [...] section. TYPE AND SCREEN Routine 09/28/2012 11:57 ([facility]GALO) AM EST documented in this encounter Results (ABNORMAL) Differential, Automated (09/29/2012 4:31 AM EST) [facility] Method Time Signature Neutrophils % 74.1 (H) [...] Organization Address City/State/ZIP Code Phon e Number [place] [phone] CERNER MILLENNIUM (ABNORMAL) Basic [...] intervals supplied above were not validated at [facility]. Results from pediatri c patients should be [...] age. At present, [facility] does NOT recommend usi ng the MDRD equation for drug dosing [...] Organization Address City/State/ZIP Code Phon e Number [place] [phone] CERNER MILLENNIUM (ABNORMAL) CBC [...] % MILLENNIUM MPV 11.2 9.0 - 12.0 [facility] Specimen Anatomical Collection Method Collection Time Receive d Time (Source) Location / / Volume Laterality Blood specimen 09/29/2012 4:31 AM 013 4:47 (specimen) EST AM EST Resulting Agency Comment Spec In Lab Tony Prakash MD HEMATOLOGY ORDERABLES Performing Organization Address City/[facility]/ZIP [place] [address] [facility] Antibody screen (09/28/2012 11:57 AM EST) Analysis Performed At Patho logist Time Signature Ab Screen Negative [facility] Expires at [phone] [facility] 2358 on: [facility] Specimen Anatomical Collection Method Collection Time Receive d Time (Source) Location / / Volume Laterality Blood specimen 09/28/2012 11:57 3 (specimen) AM EST 11:57 AM EST Resulting Agency Comment Spec In Lab Stefany Griffin MD BLOOD BANK ORDERABLES Performing Organization Address City/[facility]/ZIP Code Phon e Number [address] [facility] ABO/Rh Typing (09/28/2012 11:57 AM EST) P athologist Signature ABORh Type A Neg [facility] Specimen Anatomical Collection Method Collection Time Receive d Time (Source) Location / / Volume Laterality Blood specimen 09/28/2012 11:57 3 (specimen) AM EST 11:57 AM EST Resulting Agency Comment Spec In Lab Stefany Griffin MD BLOOD BANK ORDERABLES Performing Organization Address City/[facility]/ZIP [facility] Phon e Number [address] [facility] documented in this encounter Visit Diagnoses Not on filedocumented in this encounter Administered Medications Inactive Administered Medications - up to 3 most recent administrations Medication Order MAR Action Action Date Dose Rate Site albuterol (PROVENTIL HFA;VENTOLIN Given 09/29/2012 8:21 AM EST 2 puffs HFA) 90 mcg/actuation inhaler 2 puff 2 puff, Inhalation, 2 TIMES DAILY, First dose on Raleth 09/28/12 at 2100, Until Discontinued, Routine BUpivacaine (PF) (MARCAINE) Given 09/28/2012 1:25 PM EST 25 mg 19- Surgical Site 0.25 % (2.5 mg/mL) injection ONCE PRN, Starting on Arleth 09/28/12 at 1325, Until Arleth 09/28/12 at 1651, Intra-Operative (Intra-Procedure), Routine ceFAZolin (ANCEF) injection Given 09/28/2012 1:01 PM EST 2 g ONCE PRN, Starting on Arleth 09/28/12 at 1301, Until Arleth 09/28/12 at 1651, Intra-Operative (Intra-Procedure), Routine esomeprazole (NEXIUM) injection 40 mg Given [...] HOURS SCHEDULED, 20 doses, First dose on Tue09/28/12 at 1800, Last dose on Tue10/03/12 at 1200, Routine Given 09/29/2012 12:00 AM EST 15 mg Given 09/28/2012 6:19 PM EST 15 mg lactated ringers infusion 1,000 New Bag 09/28/2012 11:45 AM ES T 1,000 mLs 100 mL/hr mL 1,000 mL, at 100 mL/hr, Intravenous, CONTINUOUS, Starting on Tue09/28/12 at 1145, Until Tue09/28/12 at 1651, Day of Surgery (Day of Procedure) lactated ringers infusion 1,000 New Bag 09/28/2012 3:30 PM EST 1,000 mLs 100 mL/hr mL 1,000 mL, at 100 mL/hr, Intravenous, CONTINUOUS, Starting on Tue09/28/12 at 1545, Until Tue09/29/12 at 0809 morphine 1 mg/mL PUBLIC TRANSPORTATION INSPECTOR 30 mL Rate/Dose Verify 09/28/2012 5:08 PM EST mL/hr Intravenous, PUBLIC TRANSPORTATION INSPECTOR ONLY, Starting on Tue09/28/12 at 1545, Until [...] dose on Arleth 09/28/12 at 1715, Until Discontinued Given 09/28/2012 5:15 [...] 2 TIMES DAILY, First dose on Arleth 09/28/12 at 2100, Until Discontinued, Routine esomeprazole (NEXIUM) injection 40 mg (CANCELED) 1818 (Given - Provider: Angie Harry RN) 0821 (Given - Provider: Angie Harry RN) 40 mg, Intravenous, DAILY, First dose on Arleth 09/28/12 at 1730, Until Discontinued, Routine fluticasone-salmeterol (ADVAIR) 250-50 m cg/dose diskus inhaler 1 puff (CANCELED) 2100 (Given - Provider: Negrita Carrillo RN) 0821 (Given - Provider: Angie Harry RN) 1 puff, Inhalation, EVERY 12 HOURS SCHED ULED (2 times per day), First dose on Arleth 09/28/12 at 2100, Until Discontinued, Rinse mouth after administration, Routine ketorolac (TORADOL) injection 15 mg (CANCELED) 1818 (Given - Provider: Angie Harry RN) 0000 (Given - Provider: Negrita Carrillo , [place])0600 (Given - Provider: Negrita aCrrillo, [place]) 15 mg, Intravenous, EVERY 6 HOURS SCHEDU [...] mL (CANCELED) 1515 (Given - Provider: Yaima Daniel RN) 5 mL, Intravenous, EVERY 12 HOURS, First dose on Arleth 09/28/12 at 1145, Until Discontinued, Day of Surgery (Day of Procedure), Routine sodium chloride 0.9 % flush 5 mL (CANCELED) 1715 (Given - Provider: Angie Harry RN) 0515 (Given - Provider: Negrita Carrillo RN) 5 mL, Intravenous, EVERY 12 HOURS, [...] Daniel RN) 0852 (Stopped - Provider: Angie bass RN) 1,000 mL, at 100 mL/hr, Intravenous, CON TINUOUS, Starting Arleth 09/28/12 at 1545, Until 09/29/12 at 0809 morphine 1 mg/mL PUBLIC TRANSPORTATION INSPECTOR 30 mL (CANCELED) 15 30 (New Syringe/Cartridge - Provider: Yaima Daniel RN)1708 (Rate/Dose Verify - Provider: Angie Harry, [place]) 0815 (Stopped - Provider: Agnie Harry, [place]) Intravenous, PUBLIC TRANSPORTATION INSPECTOR ONLY, Starting Arleth 09/28/12 at 1545, Until 04/03 at 0715 PRN Medication Order 09/27/2012 09/28/2012 09/29/2012 BUpivacaine (PF) (MARCAINE) 0.25 % (2.5 mg/mL) injection (CA NCELED) 1325 (Given - Provider: Briigd Pa MD) ONCE PRN, Starting Arleth 09/28/12 at 1325, U ntil Arleth 09/28/12 at 1651, Intra-Operative (Intra-Procedure), Routine ceFAZolin (ANCEF) injection (CANCELED) 1 301 (Given - Provider: Kayce Wang CRNA) ONCE PRN, Starting Arleth 09/28/12 at 1301, U ntil Arleth 13 at 1651, Intra-Operative (Intra-Procedure), Routine HYDROmorphone (DILAUDID) injection 0.2-0.4 mg (CANCELED) 1610 (Given - Provider: Yaima Daniel, [place])1619 (Given - Provider: Yaima Daniel, [place])1635 (Given - Provider: Yaima Daniel RN) 0.2-0.4 [...] Routine documented in this encounter Care Teams Brush Maker Relationship Specialty Start Date End Date Kimberley Rod MD PCP - General 07/14/10 05/11/21 [address] [place] [address] documented as of this encounter
--- OUTSIDE RECORDS SUMMARY | 2022-07-23 00:59 | XMS_ITS | Encounter Summary ---
:1950 Author Organization [facility] Address [address] [place] [address] Care Team Providers Name Role Phone Unknown, Provider Primary Care Provider Encounter Details Date Type Department Care Team Description 12/23/2021 Lab Requisition [facility] Outr Resulting Lab, Pathology & Laboratory Provider [facility] [address], [place] [id number] Social History Tobacco Use Types Packs/Day Years Used Date Smoking Tobacco: Never Assessed Sex Assigned at Date Recorded Not on file documented as of this encounter Plan of Treatment Not on filedocumented as of this encounter Procedures Procedure Name Priority Date/Time Associated Diagnosis Comme nts T3, TOTAL Routine 12/23/2021 9:25 EDT Results for this procedure are i n the results section . documented in this encounter Results T3, TOTAL (12/23/2021 9:25 EDT) P athologist Signature T3, Total 131 97 - 169 12/23/2021 [facility] ng/dL 22:41 EDT [facility] Specimen Anatomical Collection Method Collection Time Receive d Time (Source) Location / / Volume Laterality Blood VENOUS BLOOD / 12/23/2021 9:25 12/23/2021 Unknown EDT 21:59 EDT Provider Outr Resulting Lab CHEMISTRY & BLOOD GAS HAM CONNOLLY Performing Organization Address City/State/ZIP Code Phon e Number [facility] [address] [place] [address] SERVICES documented in this encounter Visit Diagnoses Not on filedocumented in this encounter Care Teams Room Service Food Service Attendant Relationship Specialty Start Date End Date Unknown, Provider, PCP - General 07/06/12 documented as of this encounter
--- OUTSIDE RECORDS SUMMARY | 2022-07-23 00:59 | XMS_ITS | Encounter Summary ---
:1950 Author Organization [facility] Address [address] [place] [address] Care Team Providers Name Role Phone Unavailable Primary Care Provider Unavailable Encounter Details Date Type Department Care Team Description 04/03/2010 Results Only [facility] Jarred Monahan MD Laboratory Services - [address] [place] [address] [address] [facility] [place] [address] [phone] Social History Tobacco Use Types Packs/Day Years Used Date Smoking Tobacco: Never Assessed Sex Assigned at Date Recorded Not on file documented as of this encounter Plan of Treatment Not on filedocumented as of this encounter Procedures Procedure Name Priority Date/Time Associated Diagnosis Comme [facility] SURGICAL PATHOLOGY Routine 04/03/2010 0:00 EDT Re sults for this procedure are i n the results section. documented in this encounter Results SURGICAL PATHOLOGY (04/03/2010 0:00 EDT) Component Value Ref Test Analysis Performed At [facility] Method Time Signature Pathology SURGICAL PATHOLOGY REPORT ? KYARA HER Report: Reports generated via electr StudyRoom interface contain original data; ? ANNA LOYA however they are lacking the format of the original report. ? Caution should be taken when reading/interpreting unformatted reports. ? Name: ? NEIL, PRISCILA E ? Accession #: ? [id number] ? : ? 1950 (Age: 60) ??F ? Collec t Date: ? 04/03/2010 ? Location: ? [facility] ? R eceive Date: ? 04/04/2010 ? Provider: JARRED WALKO MD ? Copy to: JACE FINE MD ? Final Pathologic Diagnosis: ? A. ?Stomach, an trum, biopsies: ? 1. ?Antral muco sa with reactive gastropathy. ? B. ?Stomach, jorge dy, biopsies: ? 1. ?Oxyntic muc torie with mild chronic gastritis. ? C. ?Gastroesoph ageal junction, biopsies: ? 1. ?Squamocolum mercedes junctional mucosa with chronic inflammation and ? reactive epithelial changes. ? 2. ? Intestinal metaplas ia. ? D. ?Colon, sigm oid, polypectomy: ? 1. ?Hyperplasti c polyp. ? Document reviewed and electr onically signed by: ? Quintin Montiel MD ? Report ??Date: 04/07/2010 13 :01 ? By the signature above, the attending physician certifies that he/she has ? personally conducted a gross and/or microscopic examination of the described ? specimens and rendered or co nfirmed the above diagnosis. ? Specimen(s) Received: ? A. ?Gastric ant rum bx ? B. ? Gastric body bx ? C. ? EG junction bx ? D. ? Sigmoid polyp ? Clinical History: ? Hx Storey's; GERD; S /P Jerry; FH colon CA ? Gross Description: ? Received in [facility] s solution labelled Neil, Priscila and biopsy ? gastric antrum are two pink -goodwin irregular soft tissues, 0.3 x 0.2 x 0.2 cm and 0.3 x 0.3 x 0.2 cm. ??Submit melodie in toto as (A). ? [facility] Neil, Priscila and biopsy gastric ?? body are two pink-goodwin irreg ular soft tissues, each 0.4 x 0.3 x 0.2 cm. ? Submitted in toto as (B). ? Received in [facility]'s solut ion labelled Neil, Priscila and EG junction ? biopsy are two pink-goowdin irr egular soft tissues, 0.2 x 0.2 x 0.2 cm and 0.3 x ?? 0.3 x 0.2 cm. ??Submitted in toto as (C). ? Received in [employer]'s solut ion labelled Neil, Priscila and sigmoid polyp ?? is a single 0.3 x 0.3 x 0.2 cm pink-goodwin irregular soft tissue. ??Submitted in ? toto as (D). ??([facility])/ sheila ? End of Report ? Specimen (Source) Anatomical Collection Method Collection Time Re ceived Time Location / / Volume Laterality 04/03/2010 04/04/2010 7:54 EDT Jarred Monahan MD PATHOLOGY ORDERABLES Performing Organization Address City/[facility]/ZIP Code Phon e Number [facility] [address] [place] [address] SERVICES [facility] [address] [place] [address] documented in this encounter Visit Diagnoses Not on filedocumented in this encounter
--- OUTSIDE RECORDS SUMMARY | 2022-07-23 00:59 | XMS_ITS | Encounter Summary ---
:1950 Author Organization [facility] Address [address] [place] [address] Care Team Providers Name Role Phone Kimberley Rod MD Primary Care Provider Encounter Details Date Type Department Care Team Description 07/05/2012 Results Only [facility] Jarred Monahan MD Laboratory Services - [address] [place] [address] [address] [facility] [place] [address] [phone] Social History Tobacco Use Types Packs/Day Years Used Date Smoking Tobacco: Never Assessed Sex Assigned at Date Recorded Not on file documented as of this encounter Plan of Treatment Not on filedocumented as of this encounter Procedures Procedure Name Priority Date/Time Associated Diagnosis Comme [facility] SURGICAL PATHOLOGY Routine 07/05/2012 0:00 EST Re sults for this procedure are i n the results section. documented in this encounter Results SURGICAL PATHOLOGY (07/05/2012 0:00 EST) Component Value Ref Test Analysis Performed At [facility] Method Time Signature Pathology SURGICAL PATHOLOGY REPORT OSORIO OCONNOR Report: Reports generated via electronic interface contain origina l data; [facility] however they are lacking the format of the original report. Caution should be taken when reading/interpreting unformatte d reports. Name: ? KURT GASPAR ? Accession #: ? [id number] ? : ? 1950 (Age: 62) ??F ? Collect Date: ? 07/05/2012 ? Location: ? [facility] ? Receive Date: ? 07/05/2012 ? Provider: JARRED MONAHAN MD Copy to: KIMBERLEY ROD MD ? Final Pathologic Diagnosis: ? Esophagus, lower, 38 cm, biopsies: 1. ?Storey's esophagus. 2. ? Negative for dysplasia. ?? Document reviewed and electronically signed by: BRANDON OVALLE [facility] Report ??Date: 07/07/2012 15:20 By the signature above, the attending physician certifies th at he/she has personally conducted a gross and/or microscopic examin ation of the described specimens and rendered or confirmed the above diagnosis. Specimen(s) Received: ? Lower esophagus 38 cm Clinical History: ? GERD, dysphagia, h/o Storey's esophagus; ? short seg ment Storey's Gross Description: ? Received in formalin labelled Kurt Gaspar and lower esophagus 38 cm, ? SS Storey's are three ta n-pink irregular soft tissue fragments ranging from 0.2 x 0.2 x 0.2 cm to 0.4 x 0.3 x 0.2 cm. ??The specimen is entirely submitted in one cassette. ??(Lolis Garza)/[facility] End of Report Specimen (Source) Anatomical Collection Method Collection Time Re ceived Time Location / / Volume Laterality 07/05/2012 07/05/2012 16:0 6 EST Jarred Monahan MD PATHOLOGY ORDERABLES Performing Organization Address City/State/ZIP Code Phon e Number [facility] [address] [place] [address] SERVICES [facility] [address] [place] [address] documented in this encounter Visit Diagnoses Not on filedocumented in this encounter Care Teams Postal Service Clerk Relationship Specialty Start Date End Date Kimberley Rod MD PCP - General 04/07/10 07/05/12 [address] [place] [address] documented as of this encounter
--- OUTSIDE RECORDS SUMMARY | 2022-07-23 00:59 | XMS_ITS | Encounter Summary ---
:1950 Author Organization [facility] Address [address] [place] [address] Care Team Providers Name Role Phone Unknown, Provider Primary Care Provider Encounter Details Date Type Department Care Team Description 07/05/2014 Results Only [facility] Kimberley Rod MD Laboratory Services - [facility] [address] [address] [place] [address] [phone] Social History Tobacco Use Types Packs/Day Years Used Date Smoking Tobacco: Never Assessed Sex Assigned at Date Recorded Not on file documented as of this encounter Plan of Treatment Not on filedocumented as of this encounter Procedures Procedure Name Priority Date/Time Associated Diagnosis Comme nts PAP TEST- RESULT Routine 07/05/2014 0:00 EST Resu lts for this ONLY procedure are i n the results section. documented in this encounter Results PAP TEST- RESULT ONLY (07/05/2014 0:00 EST) Component Value Ref Test Analysis Performed At [facility] Method Time Signature Pathology CYTOPATHOLOGY REPORT [facility] Report: CENTER Reports generated via electronic interface contain origina l data; LABORATORY however they are lacking the format of the original report. SERVICES Caution should be taken when reading/interpreting unformatte d reports. Name: ? KURT GASPAR ? Accession #: ? [id number] : ? 1950 (Age: 64) ??F ?Collect Date: ? 07/05/2014 Location: ? [facility] ? Receive Date: ? 07/08/2014 Provider: ?KIMBERLEY ROD MD Copy to: ? Specimen/Source: ? Pap Test, Cervix, ThinPrep Imaging System with manual evaluation Last Menstrual Period: ? SPECIMEN ADEQUACY ? Satisfactory for Evaluation - transformation zone component present - scant squamous epithelial component GENERAL CATEGORIZATION ? Negative for Intraepithelial Lesion or Malignancy ? Document reviewed and electronically signed by: ? Saul Helm, DEREK(ASCP) ? Report Date: ??07/15/2014 10:29 End of Report Specimen (Source) Anatomical Location Collection Method / Collectio n Time Received Time / Laterality Volume 07/05/2014 07/08/2014 Kimberley Rod MD PATHOLOGY ORDERABLES Performing Organization Address City/State/ZIP Code Phon e Number [facility] [address] [place] [address] SERVICES documented in this encounter Visit Diagnoses Not on filedocumented in this encounter Care Teams Biology Laboratory Assistant Relationship Specialty Start Date End Date Unknown, Provider, PCP - General 07/06/12 documented as of this encounter
--- OUTSIDE RECORDS SUMMARY | 2022-07-23 00:59 | XMS_ITS | Encounter Summary ---
:1950 Author Organization [facility] Address [address] [place] [address] Care Team Providers Name Role Phone Kimberley Rod MD Primary Care Provider Reason for Visit Reason Onset Date Comments Other 08/01/2012 Called to Schedule Encounter Details Date Type Department Care Team Description 08/01/2012 Telephone Gastroenterology at [facility] Ashley Rushing Other (Called to [facility] dudley Schedule) [place] [address] Social History Tobacco Use Types Packs/Day Years Used Date Smoking Tobacco: Former Cigarettes Quit : 02/10/2003 Sex Assigned at Date Recorded Not on file documented as of this encounter Miscellaneous Notes Telephone Encounter - Ashley Rushing - 08/01/2012 3:15 PM EST Called pt at home to schedule OEM, but not home. Left msg w for pt to call me back. Called pt at work; no answer and vm was not pt's private vm, so did not leave msg. -bcj documented in this encounter Plan of Treatment Not on filedocumented as of this encounter Visit Diagnoses Not on filedocumented in this encounter Care Teams Bacteriologist Medical Relationship Specialty Start Date End Date Kimberley Rod MD PCP - General 07/14/10 05/11/21 [address] [place] [address] documented as of this encounter
--- OUTSIDE RECORDS SUMMARY | 2022-07-23 00:59 | XMS_ITS | Encounter Summary ---
:1950 Author Organization [facility] Address [address] [place] [address] Care Team Providers Name Role Phone Unavailable Primary Care Provider Unavailable Encounter Details Date Type Department Care Team Description 02/13/2010 Results Only [facility] Kimberley Walters MD [facility] [address] [place] [address] [phone] (Wo rk) Social History Tobacco Use Types Packs/Day Years Used Date Smoking Tobacco: Never Assessed Sex Assigned at Date Recorded Not on file documented as of this encounter Plan of Treatment Not on filedocumented as of this encounter Procedures Procedure Name Priority Date/Time Associated Diagnosis Comme [facility] CYTOPATHOLOGY Routine 02/13/2010 0:00 EDT Results for this procedure are i n the results section . documented in this encounter Results CYTOPATHOLOGY (02/13/2010 0:00 EDT) Component Value Ref Test Analysis Performed At [facility] Method Time Signature Pathology CYTOPATHOLOGY REPORT ? [facility] Report: ? [facility] Reports generated via electr onic interface contain original data; ? however they are lacking the format of the original report. ? Caution should be taken when reading/interpreting unformatted reports. ? Name: ? KURT GASPAR ? Accession #: ? [id number] ? : ? 1950 (Age: 59) ??F ?Collect Date: ? 02/13/2010 ? Location: ? [facility] ? Receive Date: ? 02/17/2010 ? Provider: ?KIMBERLEY FIN E MD ? Copy to: ? Specimen/Source: ? Pap Test, Endocervix, ThinPrep Imaging System with ? manual evaluation ? Last Menstrual Period: ? Other: ? HPVA - HPV testing requested if ASC-US on the current ThinPrep Pap test. ? SPECIMEN ADEQUACY ? Satisfactory for Eval uation ? - assessment of transformati on zone component not applicable ( e.g. atrophy, ? vaginal sample, hysterectomy ) ? GENERAL CATEGORIZATION ? Negative for Intraepi thelial Lesion or Malignancy ? Document reviewed and electr onically signed by: ? Halina Verville,CT(ASCP) ? Report Date: ??07/02/ 2010 12:27 ? End of Report ? Specimen (Source) Anatomical Location Collection Method / Collectio n Time Received Time / Laterality Volume 02/13/2010 02/17/2010 Kimberley Rod MD PATHOLOGY ORDERABLES Performing Organization Address City/State/ZIP Code Phon e Number [facility] [address] [place] [address] SERVICES [facility] [address] [place] [address] documented in this encounter Visit Diagnoses Not on filedocumented in this encounter
--- OUTSIDE RECORDS SUMMARY | 2022-07-23 00:59 | XMS_ITS | Encounter Summary ---
:1950 Author Organization [facility] Address [address] [place] [address] Care Team Providers Name Role Phone Kimberley Rod MD Primary Care Provider Reason for Visit Reason Comments Gastroesophageal Reflux Encounter Details Date Type Department Care Team Description 08/01/2012 Office Visit General Surgery at [facility] (gastroesophageal [facility] MD Neptali reflux disease) [facility] (Pr imary Dx) Drive [address] [place] [place] [facility] [address] [place] [address] [phone] Social History Tobacco Use Types Packs/Day Years Used Date Smoking Tobacco: Former Cigarettes Quit : 02/10/2003 Sex Assigned at Date Recorded Not on file documented as of this encounter Last Filed Vital Signs Vital Sign Reading Time Taken Comments Blood Pressure 145/52 08/01/2012 9:29 AM EST Pulse 70 08/01/2012 9:29 AM EST Temperature - - Respiratory Rate - - Oxygen Saturation 95% 08/01/2012 9:29 AM EST Inhaled Oxygen Concentration - - Weight 105.5 kg (232 lb 9.4 oz) 08/01/2012 9:29 AM EST Height 167.6 cm (5' 6) 08/01/2012 9:29 AM EST Body Mass Index 37.54 08/01/2012 9:29 AM EST documented in this encounter Progress Notes Jarod Lee MD - 08/01/2012 10:41 AM EST Priscila Gaspar is a 62-year-old female referred to me by Dr. Jarred Monahan for evaluation of possible reoperative Jerry fundoplication. She is a woman that underwent a laparoscopic Jerry fundoplication and hiatal hernia repair back on December 291994 by Dr. Danial Bass in [place]. I actually have his operative note with me from that operation. As I look through the note it appears as though all the essential steps of the standard Jerry fundoplication were performed. Specifically he does describe taking down some short gastric vessels, close the diaphragmatic defect with sutures, and performed a fundoplication over a 60-Upper Sorbian bougie. She states that she initially had excellent success; however, more recently she has had recurrent reflux. She is on Nexium and is also having nocturnal regurgitation. She has had a recent upper GI endoscopy done by Dr. Monahan, which showed changes suspicious for Storey's esophagus. This in fact was biopsied and consistent with metaplasia, but no evidence of dysplasia. She has also had a barium swallow, which I have seen those films, as well as seen the report on that and I do not see any evidence of recurrent hiatal hernia. A 12-mm tablet was administered and by the report passed easily through the distal esophagus and it did describe some intermittent spasm of the distal esophagus. She does describe some periodic dysphagia, but not consistent. Her main complaint is of recurrent reflux with regurgitation. I spent approximately 40 minutes with the patient and her today. They are both very pleasant people. He is actually is on a LVAD for cardiomyopathy and is currently on the cardiac transplant list at [facility]. I would recommend proceeding with esophageal manometry testing, as well as Santiago pH probe testing. Once she has had these physiologic tests done I would like to see her back, review the test results with her, and make subsequent diagnostic and therapeutic decisions with her. Given that there does not appear to be a recurrent hiatal hernia, if her indication for reoperation is to tighten up a too loose fundoplication, at times that can be relatively straightforward; however, that can all be changed depending on the amount of scar tissue that is present from the initial operation. Overall they seem to understand and would like to proceed. We will go ahead and give her a date for Santiago pH probe testing, as well as esophageal manometry and I will see her back following those tests. documented in this encounter Plan of Treatment Not on filedocumented as of this encounter Visit Diagnoses Diagnosis GERD (gastroesophageal reflux disease) - Primary Esophageal reflux documented in this encounter Care Teams Job Setter Relationship Specialty Start Date End Date Kimberley Rod MD PCP - General 07/14/10 05/11/21 [address] [place] [address] documented as of this encounter
--- OUTSIDE RECORDS SUMMARY | 2022-07-23 00:59 | XMS_ITS | Encounter Summary ---
:1950 Author Organization [facility] [place] [address] Care Team Providers Name Role Phone Kimberley Rod MD Primary Care Provider Encounter Details Date Type Department Care Team Description 07/29/2012 External Results XRay at [facility] Jarred Monahan MD [address] [place] [address] Dr Bret LUONG [address] [address] [place] [address] [phone] (Wo rk) Social History Tobacco Use Types Packs/Day Years Used Date Smoking Tobacco: Former Cigarettes Quit : 02/10/2003 Sex Assigned at Date Recorded Not on file documented as of this encounter Plan of Treatment Not on filedocumented as of this encounter Procedures Procedure Name Priority Date/Time Associated Diagnosis Comme nts DIAGNOSTIC RADIOLOGY SCAN Routine 07/28/2012 ULTRASOUND SCAN (SCAN) Routine 07/27/2012 documented in this encounter Results Scan Doc: Diagnostic Radiology (07/28/2012) Anatomical Region Laterality Modality Other Narrative This result has an attachment that is no t available. Jarred Monahan MD MEDIA MGR SCAN EXT ORDR/RSLT Scan Doc: Ultrasound (07/27/2012) Anatomical Region Laterality Modality Other Narrative This result has an attachment that is no t available. Scanning Provider MEDIA MGR SCAN EXT ORDR/RSLT documented in this encounter Visit Diagnoses Not on filedocumented in this encounter Care Teams Funnel Coater Relationship Specialty Start Date End Date Kimberley Rod MD PCP - General 07/14/10 05/11/21 [address] [place] [address] documented as of this encounter
--- OUTSIDE RECORDS SUMMARY | 2022-07-23 00:59 | XMS_ITS | Encounter Summary ---
:1950 Author Organization [facility] Address [address] [place] [address] Care Team Providers Name Role Phone Unavailable Primary Care Provider Unavailable Encounter Details Date Type Department Care Team Description 02/08/2003 Results Only [facility] - Bertha Osorio NP conversion [address] [place] [address] [place] [address] [phone] Social History Tobacco Use Types Packs/Day Years Used Date Smoking Tobacco: Never Assessed Sex Assigned at Date Recorded Not on file documented as of this encounter Plan of Treatment Not on filedocumented as of this encounter Procedures Procedure Name Priority Date/Time Associated Diagnosis Comme nts CYTOPATHOLOGY Routine 02/08/2003 0:00 EDT Results for this procedure are i n the results section . documented in this encounter Results CYTOPATHOLOGY (02/08/2003 0:00 EDT) Component Value Ref Test Analysis Performed At [facility] Method Time Signature Pathology CYTOPATHOLOGY REPORT [facility] Report: [facility] Reports generated via electronic interface contain original data; however they are lacking the format of the original report. Caution should be taken when reading/interpreting unformatte d reports. Name: ? KURT GASPAR ? Accession #: ? [id number] : ? 1950 (Age: 52) ??F ?Collect Date: ? 02/08/2003 Location: ? [facility] ? Receive Date: ? 02/12/2003 Provider: ?BERTHA LUCERO NP Copy to: ? Specimen/Source: ?ThinPrep Pap Test, Cervix/Endoce rvix Last Menstrual Period: ? Many Years Ago Hormonal/Contraceptive Status: ? Yes: Ortho-prefest Treatment History: ? Miscellaneous treatment: pubovaginal sling procedure 06/23 Other: ? HPVA - HPV testing requested if ASC-US on the current ThinPr ep Pap test. ? SPECIMEN ADEQUACY ? Satisfactory for Evaluation - transformation zone component present GENERAL CATEGORIZATION ? Negative for Intraepithelial Lesion or Malignancy ? Document reviewed and electronically signed by: ? Kalee Beckham, DEREK(ASCP) ? Report Date: ??02/14/2003 14:05 End of Report Specimen (Source) Anatomical Location Collection Method / Collectio n Time Received Time / Laterality Volume 02/08/2003 02/12/2003 Bertha Lucero NP PATHOLOGY ORDERABLES Performing Organization Address City/State/ZIP Code Phon e Number [facility] [address] [place] [address] SERVICES [facility] [address] [place] [address] documented in this encounter Visit Diagnoses Not on filedocumented in this encounter
--- OUTSIDE RECORDS SUMMARY | 2022-07-23 00:59 | XMS_ITS | Clinical Summary ---
:1950 Author Organization [facility] Address [address] [place] [address] Care Team Providers Name Role Phone Unknown, Provider Primary Care Provider Social History Tobacco Use Types Packs/Day Years Used Date Smoking Tobacco: Never Assessed Sex Assigned at Date Recorded Not on file Plan of Treatment Health Maintenance Due Date Last Done Comments Hepatitis C Screen 1950 COVID-19 Vaccine (#1) 1950 Fall Risk Screening 2016 Care Teams Crosstie Inspector Relationship Specialty Start Date End Date Unknown, Provider, PCP - General 07/06/12
--- OUTSIDE RECORDS SUMMARY | 2022-07-23 00:59 | XMS_ITS | Encounter Summary ---
:1950 Author Organization [facility] Address [address] [place] [address] Care Team Providers Name Role Phone Kimberley Rod MD Primary Care Provider Encounter Details Date Type Department Care Team Description 04/14/2012 Notes Only Urology at [facility] Ada Troncoso, [facility] [place] [address] [facility] [phone] UROLOGY DEPT. [place], [place] 0[address] (Wo rk) Social History Tobacco Use Types Packs/Day Years Used Date Smoking Tobacco: Former Cigarettes Quit : 02/10/2003 Sex Assigned at Date Recorded Not on file documented as of this encounter Progress Notes Dominique Garcia LNA - 04/14/2012 1:37 PM EDT Urine culture will not be treated per Dr. Steen. PROCEDURE: Urine Culture SOURCE: U CC COLLECTED: 04/12/2012 11:45 STARTED: 04/12/2012 14:30 FINAL REPORT Final Report Verified:04/13/2012 15:14 10,000-49,000 cfu/ml mixed mucosal claudia Note: Multiple bacterial morphotypes present. Suggest appropriate recollection with timely delivery to the laboratory, if clinically significant. documented in this encounter Plan of Treatment Not on filedocumented as of this encounter Visit Diagnoses Not on filedocumented in this encounter Care Teams Student Development Specialist Relationship Specialty Start Date End Date Kimberley Rod MD PCP - General 07/14/10 05/11/21 [address] [place] [address] documented as of this encounter
--- OUTSIDE RECORDS SUMMARY | 2022-07-23 00:59 | XMS_ITS | Encounter Summary ---
:1950 Author Organization [facility] Address [address] [place] [address] Care Team Providers Name Role Phone Unavailable Primary Care Provider Unavailable Encounter Details Date Type Department Care Team Description 04/11/2000 Results Only [facility] - Kahlil Raza MD conversion [address] [place] [address] Social History Tobacco Use Types Packs/Day Years Used Date Smoking Tobacco: Never Assessed Sex Assigned at Date Recorded Not on file documented as of this encounter Plan of Treatment Not on filedocumented as of this encounter Procedures Procedure Name Priority Date/Time Associated Diagnosis Comme nts CYTOPATHOLOGY Routine 04/11/2000 0:00 EDT Results for this procedure are i n the results section . documented in this encounter Results CYTOPATHOLOGY (04/11/2000 0:00 EDT) Component Value Ref Test Analysis Performed At [facility] Method Time Signature Pathology CYTOPATHOLOGY REPORT [facility] Report: [facility] Reports generated via electronic interface contain original data; however they are lacking the format of the original report. Caution should be taken when reading/interpreting unformatte d reports. Name: ? KURT GASPAR ? Accession #: ? [id number] : ? 1950 (Age: 50) ??F ?Collect Date: ? 04/11/2000 Location: ? [facility] ? Receive Date: ? 04/13/2000 Provider: ?KAHLIL PERALTA MD Copy to: ? Specimen/Source: ?Conventional Pap Test, Cervix/En docervix Last Menstrual Period: ? 02/20/00 Hormonal/Contraceptive Status: ? Yes Other: ? Additional clinical information: Regular periods ? SPECIMEN ADEQUACY ? Satisfactory for evaluation. GENERAL CATEGORIZATION ? Within Normal Limits ? Document reviewed and electronically signed by: ? NE Renteria(ASCP) ? Report Date: ??04/13/2000 14:51 End of Report Specimen (Source) Anatomical Location Collection Method / Collectio n Time Received Time / Laterality Volume 04/11/2000 04/13/2000 Kahlil Peralta MD PATHOLOGY ORDERABLES Performing Organization Address City/State/ZIP Code Phon e Number [facility] [address] [place] [address] SERVICES [facility] [address] [place] [address] documented in this encounter Visit Diagnoses Not on filedocumented in this encounter
--- OUTSIDE RECORDS SUMMARY | 2022-07-23 00:59 | XMS_ITS | Encounter Summary ---
:1950 Author Organization [facility] Address [address] [place] [address] Care Team Providers Name Role Phone Unavailable Primary Care Provider Unavailable Encounter Details Date Type Department Care Team Description 05/02/2002 Results Only [facility] - Dayron Clements MD conversion [address] [place] [phone] Social History Tobacco Use Types Packs/Day Years Used Date Smoking Tobacco: Never Assessed Sex Assigned at Date Recorded Not on file documented as of this encounter Plan of Treatment Not on filedocumented as of this encounter Procedures Procedure Name Priority Date/Time Associated Diagnosis Comme nts SURGICAL PATHOLOGY Routine 05/02/2002 0:00 EDT Re sults for this procedure are i n the results section. documented in this encounter Results SURGICAL PATHOLOGY (05/02/2002 0:00 EDT) Component Value Ref Test Analysis Performed At [facility] Method Time Signature Pathology SURGICAL PATHOLOGY REPORT OSORIO OCONNOR Report: Reports generated via electronic interface contain subhasha l data; ANNA LOYA however they are lacking the format of the original report. Caution should be taken when reading/interpreting unformatte d reports. Name: ? KURT GASPAR ? Accession #: ? [id number] ? : ? 1950 (Age: 52) ??F ? Collect Date: ? 05/02/2002 ? Location: ? [facility] ? Receive Date: ? 05/02/2002 ? Provider: SHOSHANA MONSALVE MD Copy to: JON OWUSU MD ? Final Pathologic Diagnosis: ? Soft tissue, shoulder, left, excision: - ??Mature lobular adipose tissue consistent with lipoma. Document reviewed and electronically signed by: Quintin Montiel MD Report ??Date: 05/04/2002 19:47 By the signature above, the attending physician certifies th at he/she has personally conducted a gross and/or microscopic examin ation of the described specimens and rendered or confirmed the above diagnosis. Specimen(s) Received: ? Lump L shoulder Clinical History: ? Lipoma L shoulder Gross Description: ? Received in formalin labelled Hubert a nd lipoma Lt shoulder is an ovoid lobulated goodwin-yellow 8.5 x 6.2 x 3.1 cm po rtion of fibroadipose tissue. Overlying the fibroadipose t issue is an 8.3 x 1.0 x 0.1 cm ellipse of goodwin-white wrinkled skin. ??The specime n is black inked and serially sectioned revealing a yellow-goodwin lobulated shiny cut surface. ??A few small foci of hemorrhage are appreciated. ??No areas of n ecrosis are identified. ??Quarry Extraction Worker sections are submitted as follows: BLOCK BETH A1-A5 ?Represen tative sections of fibroadipose tissue, four sections per cassette A6 ?Quarry Extraction Worker section of fibro adipose tissue including skin (Dr. Collins-SANDRA)/sheila End of Report Specimen (Source) Anatomical Collection Method Collection Time Re ceived Time Location / / Volume Laterality 05/02/2002 05/02/2002 15:2 0 EDT Dayron Monsalve MD PATHOLOGY ORDERABLES Performing Organization Address City/State/ZIP Code Phon e Number [facility] [address] [place] [address] SERVICES [facility] [address] [place] [address] documented in this encounter Visit Diagnoses Not on filedocumented in this encounter
--- OUTSIDE RECORDS SUMMARY | 2022-07-23 00:59 | XMS_ITS | Encounter Summary ---
:1950 Author Organization [facility] Address [address] [place] [address] Care Team Providers Name Role Phone Unavailable Primary Care Provider Unavailable Encounter Details Date Type Department Care Team Description 06/27/2001 Results Only [facility] - Buddy Trotter MD conversion [address] [place] [address] [place], [place] [id number] [phone] Social History Tobacco Use Types Packs/Day Years Used Date Smoking Tobacco: Never Assessed Sex Assigned at Date Recorded Not on file documented as of this encounter Plan of Treatment Not on filedocumented as of this encounter Procedures Procedure Name Priority Date/Time Associated Diagnosis Comme nts CYTOPATHOLOGY Routine 06/27/2001 0:00 EST Results for this procedure are i n the results section . documented in this encounter Results CYTOPATHOLOGY (06/27/2001 0:00 EST) Component Value Ref Test Analysis Performed At [facility] Method Time Signature Pathology CYTOPATHOLOGY REPORT KAE Report: [facility] Reports generated via electronic interface contain original data; however they are lacking the format of the original report. Caution should be taken when reading/interpreting unformatte d reports. Name: ? KURT GASPAR ? Accession #: ? [id number] : ? 1950 (Age: 51) ??F ?Collect Date: ? 06/27/2001 Location: ? [facility] ? Receive Date: ? 06/30/2001 Provider: ?BUDDY EISENBERG MD Copy to: ? Specimen/Source: ?Conventional Pap Test, Cervix/En docervix Last Menstrual Period: ? 06/14/01 Hormonal/Contraceptive Status: ? Yes ? SPECIMEN ADEQUACY ? Satisfactory for evaluation. GENERAL CATEGORIZATION ? Within Normal Limits ? Document reviewed and electronically signed by: ? DEREK Mitchell(ASCP) ? Report Date: ??07/05/2001 14:38 End of Report Specimen (Source) Anatomical Location Collection Method / Collectio n Time Received Time / Laterality Volume 06/27/2001 06/30/2001 Buddy Eisenberg MD PATHOLOGY ORDERABLES Performing Organization Address City/State/ZIP Code Phon e Number [facility] [address] [place] [address] SERVICES [facility] [address] [place] [address] documented in this encounter Visit Diagnoses Not on filedocumented in this encounter
--- OUTSIDE RECORDS SUMMARY | 2022-07-23 00:59 | XMS_ITS | Encounter Summary ---
:1950 Author Organization [facility] Address [address] [place] [address] Care Team Providers Name Role Phone Kimberley Rod MD Primary Care Provider Encounter Details Date Type Department Care Team Description 11/15/2006 Results Only [facility] - Samantha Zhong MD conversion [address] [place] [phone] Social History Tobacco Use Types Packs/Day Years Used Date Smoking Tobacco: Never Assessed Sex Assigned at Date Recorded Not on file documented as of this encounter Plan of Treatment Not on filedocumented as of this encounter Procedures Procedure Name Priority Date/Time Associated Diagnosis Comme [facility] SURGICAL PATHOLOGY Routine 11/15/2006 0:00 EDT Re sults for this procedure are i n the results section. documented in this encounter Results SURGICAL PATHOLOGY (11/15/2006 0:00 EDT) Component Value Ref Test Analysis Performed At [facility] Method Time Signature Pathology SURGICAL PATHOLOGY REPORT OSORIO OCONNOR Report: Reports generated via electronic interface contain subhasha l data; ANNA LOYA however they are lacking the format of the original report. Caution should be taken when reading/interpreting unformatte d reports. Name: ? KURT GASPAR ? Accession #: ? [id number] ? : ? 1950 (Age: 56) ??F ? Collect Date: ? 11/15/2006 ? Location: ? [facility] ? Receive Date: ? 11/15/2006 ? Provider: SAMANTHA MCCARTHY MD Copy to: ? Final Pathologic Diagnosis: ? Esophagus, site not further specified, biopsies: 1. ?Fragments o f hyperplastic squamous mucosa with reactive epithelial changes, consistent with (mild) reflux esophagitis. 2. ? Columnar glandular mucosa with focal intestinal metaplasia, consistent with Storey's esophagus. ? - No dysplasia identified. Document reviewed and electronically signed by: JON VELASQUEZ MD Report ??Date: 11/17/2006 21:21 By the signature above, the attending physician certifies th at he/she has personally conducted a gross and/or microscopic examin ation of the described specimens and rendered or confirmed the above diagnosis. Specimen(s) Received: ? Esophageal bx Clinical History: ? Hx esophagitis ??Storey' s(?) Gross Description: ? Received in Hollande' s fixative labelled Hubert and esophageal bx are two irregular portions of ta n-pink soft tissue averaging 0.4 x 0.1 x 0.1 cm. The specimen is submitted in toto in one cassette. (Mehnaz Whaley/sheri End of Report Specimen (Source) Anatomical Collection Method Collection Time Re ceived Time Location / / Volume Laterality 11/15/2006 11/15/2006 1:02 EDT Samantha Mccarthy MD PATHOLOGY ORDERABLES Performing Organization Address City/State/ZIP Code Phon e Number [facility] [address] [place] [address] [facility] [address] [place] [address] documented in this encounter Visit Diagnoses Not on filedocumented in this encounter Care Teams Range Manager Relationship Specialty Start Date End Date Kimberley Rod MD PCP - General 04/07/10 07/05/12 [address] [place] [id number] documented as of this encounter
--- OUTSIDE RECORDS SUMMARY | 2022-07-23 00:59 | XMS_ITS | Encounter Summary ---
:1950 Author Organization [facility] [place] [address] Care Team Providers Name Role Phone Kimberley Rod MD Primary Care Provider Encounter Details Date Type Department Care Team Description 04/12/2012 Office Visit Urology at [facility] Ada Troncoso Urge incontinence [facility] MD April (Primary Dx) [place] [address] UROLOGY DEPT. [phone] [place], [place] [address] (Wo rk) Social History Tobacco Use Types Packs/Day Years Used Date Smoking Tobacco: Former Cigarettes Quit : 02/10/2003 Sex Assigned at Date Recorded Not on file documented as of this encounter Last Filed Vital Signs Vital Sign Reading Time Taken Comments Blood Pressure 147/74 04/12/2012 11:22 AM EDT Pulse 64 04/12/2012 11:22 AM EDT Temperature - - Respiratory Rate - - Oxygen Saturation - - Inhaled Oxygen Concentration - - Weight 102.1 kg (225 lb) 04/12/2012 11:22 AM EDT Height 167.6 cm (5' 6) 04/12/2012 11:22 AM EDT Body Mass Index 36.32 04/12/2012 11:22 AM EDT documented in this encounter Patient Instructions Patient InstructionsAda Troncoso MD - 04/12/2012 12:15 PM EDT DIETARY IRRITANTS TO URINARY TRACT TO AVOID Certain foods can contribute to urinary frequency urgency, and discomfort. If bladder symptoms are related to dietary factors strict adherence to a diet that eliminates the food should bring marked relief in 10 days. Once you are feeling better, you can begin to add foods back into your diet one at a time. If symptoms return in 6 - 24 hrs you will be able to identify the irritant. As you add foods back to your diet it is very important that you drink significant amounts of water. These foods are acidic and considered irritants to the bladder. They should be avoided. Alcoholic beverages Cantaloupe Carbonated beverages, especially ni Evart and spicy foods Chocolate [place] fruit Coffee (including decaffeinated) Cranberries and cranberry juice Grapes Guava Peaches Pineapple Plums Strawberries Tea (black and green) Tomatoes Vitamin B complex, Vit C. Vinegar Treating Bowel Irregularities with Fiber Supplements What is fiber? Fiber is a general term for nondigestable components of food. The most common sources of dietary fiber are from unrefined grains such as bran or unprocessed wheat or oats. Additionally, supplemental fiber made from certain seed husks is available in commercial preparations. Fiber is important in digestion because it absorbs excess water in stools that are too liquid and draws water into stools that are too hard. It also conditions the bowel over time to contract more efficiently. You need water to make the fiber work. Your intake of all fluids should be 64 oz per day, 1/2 shouldbe water. Sources of fiber There are several sources of fiber: Unrefined (saldana???s) bran is probably the least expensive source of extra fiber. Unfortunately ittastes like sawdust (in essence it is). It can be mixed with food (like applesauce) and water to improve palatability. Whole wheat bread is a good source of fiber but the bread packaging label must say 100% WHOLE WHEATwith each slice containing between 2 and 4 grams of fiber. White bread or any bread without such a designation has little to no fiber and is largely of no nutritional value. Cereals can be a good source of fiber but they must contain at least 4 grams of fiber per serving. All Bran or Fiber One cereal???s emphasize the bran content but suffer somewhat from taste. Uncle Johan's cereal contains 10 grams per serving. Kashi brand cereals can be a good compromise between taste and fiber. Commercial fiber supplements such as Metamucil, Benefiber, Hydrocil, Citrucel, Fibercon, and Fiberall differ mostly by cost and taste. Generic products are just as good as brand name products and are usually less expensive. Many people believe that some foods contain fiber that actually does not. Breakfast cereals such as [place] flakes or Raisin bran are poor sources of fiber. Additionally, many fruits and vegetables, whileproviding good nutrients, are poor fiber sources. We recommend that you include more fiber in your diet and that you take a fiber supplement if necessary. The recommended daily fiber intake is between 20 and 35 grams. How to take fiber supplements The goal of fiber supplementation is to have one soft bowel movement every day or every other day. The amount of fiber needed to achieve this goal varies from person to person. You should also try to increase your dietary fiber intake (e.g. switch to 100% whole wheat bread) so that supplements may be no longer needed. The way to take any fiber supplement is to start slowly so that you bowel can adapt to the new quantities of fiber in your system. You may feel crampy or gassy during the first week or so but this should improve with time. We recommend starting with one serving of supplement in a large glass of water at bedtime every night. This amount should increase by no more than one serving a week until you havea bowel movement at least once every other day. Equivalent servings between many popular fiber supplement products are: Metamucil - 1 package, 1 heaping teaspoon or 1-2 wafers Citrucel - 1 tablespoon Fiberall - 1-2 wafers or 1 teaspoon Unprocessed bran - 1-2 teaspoons As manufacturers sometimes change the formulations of their products you should check the label to confirm these dosages. Try to avoid using laxatives while you are taking fiber supplements. If you need a laxative, we suggest Milk of Magnesia at bedtime. Fiber supplements are a long-term treatment; do not expect immediate results. They do work, however and are a safe, non-medical treatment for irregularity. documented in this encounter Progress Notes Ada Troncoso MD - 04/12/2012 11:25 AM EDT Urinary Incontinence New Patient Workup - Female Reason for Visit: This is a female 62 y.o. seen at the request of KIMBERLEY ROD MD with incontinence times years. She had a pubovaginal sling performed on Jun 25 by me. She stopped catheterizing after a few days. She is feeling now like she doesn't empty. She called in 2003 because of new leakage and was treated for a UTI. She thinks that this helped. She has been on vesicare for a few years. She was on detrol and liked it better but stopped it due to lack of payment. She also has pain suprapubically and in her groin. Notes from KIMBERLEY ROD MD on file have been received and reviewed. HPI Features of incontinence: The patient does not leak with the following stress maneuvers: coughing , laughing, sneezing, lifting, straining, walking, getting out of a chair and bending over. The patient has features of urge including: leakage without warning, leakage on the way to the toilet, when full and around water. She does not leak in cold weather. Pad use: Type: none - if she takes the pills Frequency: Every 1 - 2 hour(s). Nocturia: x 2. - 3 Nocturnal enuresis: No. Usual Fluid Intake: Type of Fluid Quantity Consumed Unit Coffee 2 - 3 cups per day Tea 1 glass per day - Coke 0 cans per day Juice 1 glasses per day Water 2 glasses per day Last UTI: None recently. Bowel Problems: Constipated - has a BM q 2 - 3 days - has to take milk of magnesia. Takes fiber choice tabs - dose 1-3 tab/day. Gyne: G 2 P 2 # 2 Menopause: age 46 , no symptoms. Uterus retained HRT: No. Was in past Review of Systems: General Health: Fair. 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 RS - No cough or breathing difficulties. CVS -occas chest pain, +FARLEY. No claudication. GI - Normal appetite, barrets esoph, had fundoplication. MUSCULOSKELETAL: No joint or muscle aches or dysfunction. is on cardiac transplant list. Physical Exam Pleasant woman in no acute distress. Oriented to Person, place and time. Healthy appearance. Color normal. No significant skin lesions. Abdomen: The abdomen is soft, non-tender, without masses or organomegaly. There is no hepatosplenomegaly. The bladder is not palpable. There is no CV angle tenderness. Pelvic: The external genitalia are normal with normal hair distribution and no lesions. The meatus is in a normal location with a normal configuration. There is miniimal mobility of the bladder neck. The urethra is not tender. There are no urethral masses. The patient does not leak in the supine position with valsalva and with coughing. There is a Gr. 1 cystocele and a Gr. 2 rectocele that has a verywide opening. . There are no pelvic masses. The patient can Kegel effectively. The uterus and adenexa are normal. The uterus is well supported. Rectal: The anus and perineum are normal. Rectal sphincter tone is normal. There are no rectal masses. PVR: 60 - 80 cc measured in the supine position with the bladder scanner shortly after the patient had voided. U/A: positive for WBC. Impression: Pt with urge incontinence, pelvic pain and constipation. Plan: Treat constipation.She was given extensive instructions about fiber. Stay on vesicare Also advised to avoid bladder irritants - list given. 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 RTC 3 months. documented in this encounter Plan of Treatment Not on filedocumented as of this encounter Procedures Procedure Name Priority Date/Time Associated Diagnosis Comme nts URINE CULTURE Routine 04/12/2012 11:45 AM Urge incontinence Re sults for this EDT procedure are i n the results section . documented in this encounter Results Urine culture Clean Catch Urine (04/12/2012 11:45 AM EDT) [facility] Method Time Signature Urine Culture CERNER ? Patient Name: KURT GASPAR ?Ordered By: ADA TRONCOSO [facility] ? MR#: [id number] ?LOC: ??5B ? /Sex: ??1950 (62 years), ? Female ? PROCEDURE: Urine Culture ?SOURCE: U CC ? COLLECTED: 04/12/2012 11:45 ? STARTED: 04/12/2012 14:30 ? FINAL REPORT ? Final Report ? Verified:04/13/2012 15:14 ? 10,000-49,000 cfu/ml mixed mucosal claudia ? Note: Multiple bacterial morphotypes present. Suggest appropriate ? recollection with timely delivery to ? the laboratory, if clinically significant. ? Specimen (Source) Anatomical Collection Method Collection Time Re ceived Time Location / / Volume Laterality Urine specimen 04/12/2012 11:45 2 2:29 obtained by clean AM EDT PM EDT catch procedure (specimen) Resulting Agency Comment Spec In Lab Ada Troncoso MD MICROBIOLOGY - GENERAL ORDER SHIVAM Performing Organization Address City/State/[place] [address] [facility] LAB[facility] documented in this encounter Visit Diagnoses Diagnosis Urge incontinence - Primary documented in this encounter Care Teams Residential Sales Associate Relationship Specialty Start Date End Date Kimberley Rod MD PCP - General 07/14/10 05/11/21 [address] [place] [address] documented as of this encounter
--- OUTSIDE RECORDS SUMMARY | 2022-07-23 00:59 | XMS_ITS | Encounter Summary ---
:1950 Author Organization [facility] [place] [address] Care Team Providers Name Role Phone Kimberley Rod MD Primary Care Provider Encounter Details Date Type Department Care Team Description 07/28/2012 Orders Only Urology at [facility] Ada Troncoso, [facility] [place] [phone] [facility] [phone] UROLOGY DEPT. [place], [place] [address] (Wo rk) Social History Tobacco Use Types Packs/Day Years Used Date Smoking Tobacco: Former Cigarettes Quit : 02/10/2003 Sex Assigned at Date Recorded Not on file documented as of this encounter Plan of Treatment Not on filedocumented as of this encounter Procedures Procedure Name Priority Date/Time Associated Diagnosis Comme nts FILM LIBRARY Routine 07/28/2012 4:00 PM Results f or this STORAGE ONLY DX GI EST procedure are in STUDY the results section. documented in this encounter Results Film Library- Storage only DX GI Study (07/28/2012 4:00 PM EST) Specimen (Source) Anatomical Collection Method Collection Time Re ceived Time Location / / Volume Laterality 07/28/2012 4:00 PM EST Narrative RAD - 03/05/2014 10:18 AM EDT This is a non-reportable exam. Procedure Note Holger Xiao - 03/05/2014Formatti ng of this note might be different from the original. This is a non-reportable exam. Ada Troncoso MD G FILM LIBRARY ORDERABLES Performing Organization Address City/State/ZIP Code Phon e Number [facility] [address] [facility] [place] [address] documented in this encounter Visit Diagnoses Not on filedocumented in this encounter Care Teams Blood Bank Supervisor Relationship Specialty Start Date End Date Kimberley Rod MD PCP - General 07/14/10 05/11/21 [address] [place] [address] documented as of this encounter
--- OUTSIDE RECORDS SUMMARY | 2022-07-23 00:59 | XMS_ITS | Encounter Summary ---
:1950 Author Organization [facility] Address [address] [place] [address] Care Team Providers Name Role Phone Unknown, Provider Primary Care Provider Encounter Details Date Type Department Care Team Description 03/10/2016 Results Only [facility]- Vesna Almaraz, [address] [place] [address] [place] [address] (Wo rk) Social History Tobacco Use Types Packs/Day Years Used Date Smoking Tobacco: Never Assessed Sex Assigned at Date Recorded Not on file documented as of this encounter Plan of Treatment Not on filedocumented as of this encounter Procedures Procedure Name Priority Date/Time Associated Diagnosis Comme [facility] SURGICAL PATHOLOGY Routine 03/10/2016 12:29 Resul ts for this EDT procedure are i n the results section. documented in this encounter Results SURGICAL PATHOLOGY (03/10/2016 12:29 EDT) Component Value Ref Test Analysis Performed At [facility] Method Time Signature Pathology SURGICAL PATHOLOGY REPORT [facility] Report: Reports generated via electronic interface contain [facility] data; CENTER however they are lacking the format of the original report. LABORATORY Caution should be taken when reading/interpreting unformat melodie reports. SERVICES Name: ? KURT GASPAR ? Accession #: ? [id number] ? : ? 1950 (Age: [age]) ??F ? Collect Date: ? 03/10/2016 ? Location: ? [facility] ? Receive Date: ? 03/11/2016 ? Provider: VESNA MCGARRY MD Copy to: JERZY SCHROEDER RESPIRATORY MEDICINE PHYSICIAN ? Final Pathologic Diagnosis: GASTROESOPHAGEAL JUNCTION, BIOPSY: - ??Cardia-type mucosa with intestinal metaplasia and reactive change; negative for dysplasia. - ??Adjoining and separate s quamous mucosa with features of reflux esophagitis. Document reviewed and electronically signed by: HOME GRIER MD Report ??Date: 03/15/2016 10:12 By the signature above, the attending physician certifies th at he/she has personally conducted a gross and/or microscopic examin ation of the described specimens and rendered or confirmed the above diagnosis. Specimen(s) Received: GE jct Clinical History: Storey's esoph; screening Gross Description: ? Received in formalin labelled with proper patient identification (initials L, D) and GE jct are five goodwin-brown mottled tissues (0.1 x 0.2 x 0.2 cm to 0.2 x 0.3 x 0.4 cm). Entirely submitted in 1 and 2. Isabela Bryant 03/11/2016 2:11 PM End of Report Specimen Anatomical Collection Method Collection Time Receive d Time (Source) Location / / Volume Laterality 03/10/2016 12:29 03/11/2016 EDT 12:29 EDT Vesna Mcgarry MD PATHOLOGY ORDERABLES Performing Organization Address City/State/ZIP Code Phon e Number [facility] [address] [place] [address] SERVICES documented in this encounter Visit Diagnoses Not on filedocumented in this encounter Care Teams Assistant Research Scientist Relationship Specialty Start Date End Date Unknown, Provider, PCP - General 07/06/12 documented as of this encounter
--- OUTSIDE RECORDS SUMMARY | 2022-07-23 00:59 | XMS_ITS | Encounter Summary ---
:1950 Author Organization [facility] Address [address] [place] [address] Care Team Providers Name Role Phone Kimberley Rod MD Primary Care Provider Encounter Details Date Type Department Care Team Description 07/26/2006 Results Only [facility] - Samantha Zhong MD conversion [address] [place] [phone] Social History Tobacco Use Types Packs/Day Years Used Date Smoking Tobacco: Never Assessed Sex Assigned at Date Recorded Not on file documented as of this encounter Plan of Treatment Not on filedocumented as of this encounter Procedures Procedure Name Priority Date/Time Associated Diagnosis Comme [facility] SURGICAL PATHOLOGY Routine 07/26/2006 0:00 EST Re sults for this procedure are i n the results section. documented in this encounter Results SURGICAL PATHOLOGY (07/26/2006 0:00 EST) Component Value Ref Test Analysis Performed At [facility] Method Time Signature Pathology SURGICAL PATHOLOGY REPORT OSORIO OCONNOR Report: Reports generated via electronic interface contain tani l data; ANNA LO[facility] however they are lacking the format of the original report. Caution should be taken when reading/interpreting unformatte d reports. Name: ? KURT GASPAR ? Accession #: ? [id number] ? : ? 1950 (Age: 56) ??F ? Collect Date: ? 07/26/2006 ? Location: ? [facility] ? Receive Date: ? 07/27/2006 ? Provider: SAMANTHA MCCARTHY MD Copy to: ? Final Pathologic Diagnosis: A. ?Stomach, biopsy: 1. ?Reactive gastropathy. ??See comment. B. ?Esophagus, EG junction, biopsy: 1. ?Squamous an d gastric, cardia-type mucosa with chronic inflammation and focal intestinal metaplasia. 2. ? No Helicobacter pylori-like microorgani sms identified on H&E-stained sections. Comment: ? Sections of the biopsy show antral-type mucosa with reactive foveolar hyperplasia, negligible infl ammation, and no Helicobacter pylori. ??These changes suggest chemical type injury such as can be seen with non-st eroidal anti-inflammatory drugs, alcohol, and bile reflux. ??(Dr. Riya carson)/[facility] Document reviewed and electronically signed by: Silvio Mccarthy MD Report ??Date: 07/29/2006 14:40 By the signature above, the attending physician certifies th at he/she has personally conducted a gross and/or microscopic examin ation of the described specimens and rendered or confirmed the above diagnosis. Specimen(s) Received: A. ?Prepyloric B. ? EG junction Clinical History: ? Abd & subabdominal pain; prior Jerry fundoplication Gross Description: ? Received in Hollande' s fixative labelled Hubert and prepyloric are three irregular portions of goodwin-pink sof t tissue averaging 0.4 x 0.1 x 0.1 cm. The specimen is submitted in toto as (A). Received in Hollande' s fixa tive labelled Hubert and EG junction are three irregular portions of goodwin-pi nk, focally hemorrhagic soft tissue averaging 0.2 x 0.2 x 0.1 cm. ??The specimen is submitte d in toto as (B). ??(Mehnaz Sunshine)/[facility] End of Report Specimen (Source) Anatomical Collection Method Collection Time Re ceived Time Location / / Volume Laterality 07/26/2006 07/27/2006 8:50 EST Gene L Mp RONQUILLO PATHOLOGY ORDERABLES Performing Organization Address City/State/ZIP Code Phon e Number [facility] [address] [place] [address] SERVICES [facility] [address] [place] [address] documented in this encounter Visit Diagnoses Not on filedocumented in this encounter Care Teams Hauling Contractor Relationship Specialty Start Date End Date Kimberley Rod MD PCP - General 04/07/10 07/05/12 [address] [place] [address] documented as of this encounter
--- OUTSIDE RECORDS SUMMARY | 2022-07-23 00:59 | XMS_ITS | Encounter Summary ---
:1950 Author Organization [facility] Address [address] [place] [address] Care Team Providers Name Role Phone Kimberley Rod MD Primary Care Provider Encounter Details Date Type Department Care Team Description 06/28/2007 Results Only [facility] Family Kimberley Rod MD [facility] [address] [place] [phone] (Wo rk) Social History Tobacco Use Types Packs/Day Years Used Date Smoking Tobacco: Never Assessed Sex Assigned at Date Recorded Not on file documented as of this encounter Plan of Treatment Not on filedocumented as of this encounter Procedures Procedure Name Priority Date/Time Associated Diagnosis Comme [facility] CYTOPATHOLOGY Routine 06/28/2007 0:00 EST Results for this procedure are i n the results section . documented in this encounter Results CYTOPATHOLOGY (06/28/2007 0:00 EST) Component Value Ref Test Analysis Performed At [facility] Method Time [facility] Pathology CYTOPATHOLOGY REPORT KAE Report: [facility] Reports generated via electronic interface contain original data; however they are lacking the format of the original report. Caution should be taken when reading/interpreting unformatte d reports. Name: ? KURT GASPAR ? Accession #: ? [id number] : ? 1950 (Age: 57) ??F ?Collect Date: ? 06/28/2007 Location: ? [facility] ? Receive Date: ? 06/30/2007 Provider: ?KIMBERLEY DNBECKFAHC FRANCOISE RONQUILLO Copy to: ? Specimen/Source: ?ThinPrep Pap Test, E ndocervix, processed on KuponGid ThinPrep Imaging System, with manual evaluation Last Menstrual Period: ? NA Other: ? HPVA - HPV testing requested if ASC-US on the current ThinPr ep Pap test. ? SPECIMEN ADEQUACY ? Satisfactory for Evaluation - assessment of transformation zone component not appl icable ( e.g. atrophy, vaginal sample, hysterectomy) - scant squamous epithelial component GENERAL CATEGORIZATION ? Negative for Intraepithelial Lesion or Malignancy ? Document reviewed and electronically signed by: ? aTlisha Jorgensen [facility](ASCP) ? Report Date: ??07/04/2007 14:22 End of Report Specimen (Source) Anatomical Location Collection Method / Collectio n Time Received Time / Laterality Volume 06/28/2007 06/30/2007 Kimberley Rod MD PATHOLOGY ORDERABLES Performing Organization Address City/State/ZIP Code Phon e Number [facility] [address] [place] [address] SERVICES [facility] [address] [place] [address] documented in this encounter Visit Diagnoses Not on filedocumented in this encounter Care Teams Interior Assemblies Installer Relationship Specialty Start Date End Date Kimberley Rod MD PCP - General 04/07/10 07/05/12 [address] [place] [phone] documented as of this encounter
--- NOTE | 2022-07-23 14:16 | DI.MAMMO_ITS ---
Exam(s) MAMMO DIAGNOSTIC UNI EXAM: MAMMO DIAGNOSTIC UNI CLINICAL HISTORY: BREAST LESION LEFT BREAST N64.9, 6 MO FU TECHNIQUE: Left cc and MLO mammogram images were performed according to the usual protocol [facility] computer analysis with CAD system, tomosynthesis and C-view imaging. COMPARISON: 07 Jan 2022 and exams back to 2015. FINDINGS: The left breast is composed of scattered fibroglandular densities, Breast Density category B. No suspicious masses or suspicious microcalcifications are seen. The previously noted nodule in th e superior left breast is no longer seen. No skin thickening or abnormal axillary lymph nodes are seen. IMPRESSION: BI-RADS Category 1, Negative mammogram Bilateral screening mammography is recommended 1 year. Breast Density - Category B, scattered fibroglandular densities. A negative radiographic report should not delay biopsy if a dominant or clinically suspicious mass is present. Up to ten percent of cancers are not identified on mammography. A negative report may reinforce clinical impression. Adenosis and dense breasts may obscure an underlying neoplasm. False positive reports average 6 to 10%. Patient will receive a letter notifying them of these results.
== END ==
PROVIDERS: PCP Internal Medicine; Visit Provider Family Medicine
DX: R92.8 Other abnormal and inconclusive findings on diagnostic imaging of breast (principal)
CPT/HCPCS: 77061; 77065; G0279

== ENCOUNTER → 2022-08-13 00:37 | Outpatient (CLI) | payer MEDICARE, SELFPAY ==
--- NOTE | 2022-08-13 | DI.DEXA_ITS ---
Exam(s) XR DEXA BONE DENSITY W/WO SAMANTHA EXAM: XR DEXA BONE DENSITY W/WO SAMANTHA CLINICAL HISTORY: SCREENING FOR OSTEOPOROSIS IN POSTMENOPAUSAL WOMAN,Z78.0,PREVENTATIVE TECHNIQUE: COMPARISON: None for comparison. FINDINGS: Lateral Spine Image: Unremarkable. No compression deformities identified. Left hip: Total T-Score: 0.3 Total Z-Score: 1.8 T- and Z-scores: Within normal limits. Lumbar Spine: Total T-Score: 3.1 Total Z-Score: 5.3 T- and Z-scores: Within normal limits. IMPRESSION: No evidence of osteoporosis.
== END ==
PROVIDERS: PCP Internal Medicine; Visit Provider Family Medicine
DX: Z13.820 Encounter for screening for osteoporosis (principal); Z78.0 Asymptomatic menopausal state
CPT/HCPCS: 77080

== ENCOUNTER 2022-08-26 09:28 | Outpatient (CLI) | payer MEDICARE, SELFPAY ==
--- NOTE | 2022-08-26 13:55 | DI.RAD_ITS ---
Exam(s) XR LUMBAR SPINE COMPLETE EXAM: XR LUMBAR SPINE COMPLETE CLINICAL HISTORY: CHRONIC LOW BACK PAIN, M54.5. TECHNIQUE: 2D digital imaging was performed. COMPARISON: CR XR DEXA BONE DENSITY W/WO SAMANTHA from 08/13/2022 FINDINGS: Five views: There is no evidence of fracture. There is mild degenerative anterolisthesis of L4 upon L5 due to fa cet there are no pars defects. There is multilevel disc space narrowing at each level in lumbosacral spine. Also multilevel posterior bony ridging. There may be an element of central stenosis at leve ls here. There is no scoliosis. Most prominent facet arthropathy is at the lower 2 levels. Sacroil iac joints appear. Vascular calcification in the abdominal aorta and iliac arteries incidentally. T here is no scoliosis. IMPRESSION: Multilevel chronic degenerative disc disease. Also mild degenerative anterolisthesis L4 upon L5. DATA REPOSITORY: RADIATION DOSE DELIVERED:
== END 2022-08-26 09:48 ==
LOC: DI 09:31
PROVIDERS: PCP Internal Medicine; Visit Provider Family Medicine
DX: M43.16 Spondylolisthesis, lumbar region (principal)
CPT/HCPCS: 72110

== ENCOUNTER 2022-10-14 11:38 | Outpatient (REF) | payer MEDICARE, SELFPAY ==
--- NOTE | 2022-10-14 11:20 | PAPFT_PTH ---
PATIENT: Priscila Gaspar LOC: [facility] U#:[id number] AGE/SX: 72/F ROOM: RE10/14/[address]: Suzan Pringle : 1950 BED: DIS: 10/14/2022 SPEC #: [id number] RECD: 10/14/22 17:43 STATUS: BRANDON RESammy #: [id number] ELIZ: 10/14/22 11:[address]: Suzan Pringle DEPT: [facility] Cytology RECD BY: Wendy Celestin ENTERED: 10/14/22 17:44 SP TYPE: PAPFT OTHR DR: Buddy Eisenberg Tissues: 1 - CX/ENDOCX FOR PAP SMEARS Procedures: PAP THIN PREP/UVM Screening HPV DNA PROBE Comments: [id number]
== END 2022-10-14 11:39 | disposition home or self-care (01) ==
LOC: LBN 11:38
PROVIDERS: PCP Internal Medicine; Visit Provider Obstetrics & Gynecology Gynecology
DX: Z01.419 Encounter for gynecological examination (general) (routine) without abnormal findings (principal); Z11.51 Encounter for screening for human papillomavirus (HPV)
CPT/HCPCS: 88142; 87624

== ENCOUNTER 2022-10-25 03:28 | Outpatient (CLI) | payer MEDICARE, SELFPAY ==
[2022-10-25 12:04] LABS: HCT 41.7 % (36.0-46.0); HGB 13.6 g/dL (11.2-15.7); MCHC 32.6 % (32.0-36.0); MCV 86 fL (80-95); MPV 9.9 fL (8.0-11.0); Platelet Count 287 10^3/uL (130-400); RBC 4.86 10^6/uL (3.93-5.22); RDW 13.5 % (11.7-14.6); RDW-SD 42.3 fL; WBC 8.35 10^3/uL (4.4-10.8)
[2022-10-25 13:01] LABS: Anion Gap 9.6 mmol/L (3-11); BUN 17 mg/dL (7-18); CO2 32.4 mmol/L (21.0-32.0); Calcium 9.6 mg/dL (8.5-10.1); Chloride 100 mmol/L (98-107); Estimated GFR 60.23 (mL/min/1.73m2); Glucose 101 mg/dL (74-106); Potassium 3.9 mmol/L (3.5-5.1); Sodium 142 mmol/L (136-145)
== END 2022-10-25 03:29 | disposition home or self-care (01) ==
LOC: LBO 03:28
PROVIDERS: PCP Internal Medicine; Visit Provider Obstetrics & Gynecology Gynecology
DX: N81.6 Rectocele (principal); N81.2 Incomplete uterovaginal prolapse; I10 Essential (primary) hypertension; Z01.818 Encounter for other preprocedural examination; Z01.812 Encounter for preprocedural laboratory examination
CPT/HCPCS: 36415; 80048; 85027; 86850; 86900; 86901

== ENCOUNTER 2022-10-25 18:19 | Outpatient (REF) | payer MEDICARE, SELFPAY ==
[2022-10-25 12:38] LABS: Source Nasal/Nares
[2022-10-25 13:48] LABS: COVID-19 PCR Negative (Negative)
== END 2022-10-25 18:20 | disposition home or self-care (01) ==
LOC: LBN 18:19
PROVIDERS: PCP Internal Medicine; Visit Provider Obstetrics & Gynecology Gynecology
DX: Z20.822 Contact with and (suspected) exposure to COVID-19 (principal); Z01.818 Encounter for other preprocedural examination
CPT/HCPCS: 87635

== ENCOUNTER 2022-10-27 08:05 | Day surgery (SDC) | payer MEDICARE, SELFPAY ==
[2022-10-27] VITALS (7 sets, daily range): BP systolic 132–169; BP diastolic 60–86; PULSE 76–86; RESP 13–22; TEMP 36.5–36.8; O2SAT 95–99; BMI 34.2
--- NOTE | 2022-10-27 08:14 | ANES.PREOP_ITS ---
General Info Date of Service Date Performed: 10/27/22 Height: 5 ft 5 in Weight: 93.44 kg Body Mass Index (BMI): 34.2 Surgical Procedure: Operation Date: 10/27/22 10:25 Proposed Procedure Side Surgeon p Anterior/Posterior Colporrhaphy Suzan Pringle MD Meds Allergies and Home Medications Allergies Allergy/AdvReac Type Severity Reaction Status Date / Time psyllium husk Allergy asthma Verified 10/27/22 08:22 [From Metamucil] psyllium seed Allergy asthma Verified 10/27/22 08:22 [From Metamucil] sucrose [From Metamucil] Allergy asthma Verified 10/27/22 08:22 gabapentin [From Neurontin] AdvReac Intermediate Angry Verified 10/27/22 08:22 demeanor rosuvastatin calcium AdvReac Intermediate myalgia Verified 10/27/22 08:22 [From Crestor] latex AdvReac local rash Verified 10/27/22 08:22 metoclopramide HCl AdvReac facial Verified 10/27/22 08:22 [From Reglan] tics, tachycardia Home Medication Medication Instructions Recorded albuterol sulfate 90 mcg/actuation 2 puff inhalation Q4H PRN 08/26/14 aerosol inhaler chlorthalidone 25 mg tablet 25 mg PO DAILY 08/26/14 fluticasone 250 mcg-salmeterol 50 1 puff inhalation BID 08/26/14 mcg/dose blistr powdr for inhalation (Advair Diskus) levothyroxine 88 mcg tablet 112 mcg PO DAILY 08/26/14 (Synthroid) sumatriptan succinate 25 mg tablet 25 mg PO PRN PRN 08/26/14 (Imitrex) magnesium hydroxide 400 mg/5 mL 30 ml PO PRN PRN 07/10/15 oral suspension (Milk of Magnesia) fluticasone propionate 50 1 spray NS DAILY 03/09/16 mcg/actuation nasal spray,suspension (Flonase Allergy Relief) carboxymethylcellulose sodium 0.5 2 drp OU PRN PRN 09/15/16 % eye drops (Refresh Tears) acetaminophen 500 mg tablet 1,000 mg PO Q8H PRN PRN #180 tabs 02/03/17 (Acetaminophen Extra Strength) celecoxib 200 mg capsule 200 mg PO BID #60 caps 02/03/17 potassium chloride 20 mEq 20 meq PO DAILY 11/24/18 tablet,extended release bupropion HCl 150 mg tablet,12 hr 150 mg PO QAM 10/14/22 sustained-release cyclobenzaprine 5 mg tablet 5 mg PO TID PRN 10/14/22 polyethylene glycol 3350 17 17 g PO DAILY 10/14/22 gram/dose oral powder (Miralax) tramadol 50 mg tablet 50 mg PO .q6 prn 10/14/22 trospium 20 mg tablet 20 mg PO BID 10/14/22 ibuprofen 800 mg tablet 800 mg PO TID PRN 10/27/22 magnesium oxide 400 mg PO BID 10/27/22 pantoprazole 40 mg granules 40 mg PO DAILY 10/27/22 delayed-release for susp in packet (Protonix) Current Visit Medications: Current Medications Generic Name Dose Route Start Last Admin Trade Name Freq PRN Reason Stop Dose Admin Ringer's Solution 1,000 mls @ 125 mls/hr 10/27/22 06:00 IV 10/27/22 16:00 INFUSION [facility] Cefazolin Sodium/Dextrose 2 gm in 50 mls @ 100 mls/hr 10/27/22 06:00 Ancef Duplex IVPB 10/27/22 16:00 ZIPPER MEASURER [facility] IV Miscellaneous Supplies 1 each 10/27/22 06:00 Iv Access IV 10/27/22 23:59 DIRECTED GABRIEL Sodium Chloride 0 ml 10/27/22 06:00 Normal Saline Flush 10 Ml Syr IV 10/27/22 23:59 PRN PRN Sodium Chloride 0 ml 10/27/22 06:00 Normal Saline 10 Ml Vial IJ 10/27/22 23:59 DIRECTED PRN Sterile Water 0 ml 10/27/22 06:00 Water,Injection,Sterile 10 Ml Vial IJ 10/27/22 23:59 DIRECTED PRN PFSH Active Problems Active Problems: Problem Status Onset Code Rotator cuff impingement syndrome of right shoulder M75.41 Acromioclavicular joint arthritis M19.90 Achilles tendinitis, left leg M76.62 Lumbar pain M54.50 Acromioclavicular joint arthritis 06/20/15 M19.019 Rectocele without uterine prolapse N81.6 Cystocele and rectocele with incomplete uterovaginal prolapse N81.2 Medical History Medical History Aortic regurgitation Pt. denies this Arthritis Storey esophagus Calcific Achilles tendinitis of right lower extremity (10/06/16) Diverticulosis Fibrocystic breast Kimberley's deformity of right heel (10/06/16) Hypertension Hypothyroid Obesity RAD (reactive airway disease) Right rotator cuff tendinitis (04/25/15) Urine incontinence Surgical History Surgical History (Updated 10/27/22 @ 08:21 by Rafael Patel) Colonoscopy - IV Sedation Endoscopy (03/10/16) Dr Álvarez, repeat PRN H/O hernia repair History of appendectomy Hx laparoscopic cholecystectomy Hx of tonsillectomy Jerry Fundoplication Tobacco Smoking/Tobacco Use Status: Former Tobacco Use Alcohol Alcohol Intake: current Alcohol intake frequency: holidays/special occasions only Substance Use Substance use: Never Substance use type: does not use Prental History History 2 Para Hx # Term Pregnancies 2 Multiple births Hx # Pregnancies Ectopic pregnancies AB induced Hx Number of Living Children 2 AB spontaneous Vital Signs and Lab Results Lab Results Blood Type / Crossmatch: Patient ABO/Rh A Negative 10/25/22 Antibody Screen NEGATIVE 10/25/22 Complete Blood Count: White Blood Count 8.35 10^3/uL (4.4-10.8) 10/25/22 11:57 Red Blood Count 4.86 10^6/uL (3.93-5.22) 10/25/22 11:57 Hemoglobin 13.6 g/dL (11.2-15.7) 10/25/22 11:57 Hematocrit 41.7 % (36.0-46.0) 10/25/22 11:57 Platelet Count 287 10^3/uL (130-400) 10/25/22 11:57 Complete Metabolic Panel: Sodium 142 mmol/L (136-145) 10/25/22 11:57 Potassium 3.9 mmol/L (3.5-5.1) 10/25/22 11:57 Chloride 100 mmol/L (98-107) 10/25/22 11:57 Carbon Dioxide 32.4 mmol/L (21.0-32.0) H 10/25/22 11:57 BUN 17 mg/dL (7-18) 10/25/22 11:57 Creatinine 1.0 mg/dL (0.55-1.02) 10/25/22 11:57 Est GFR (CKD-EPI 2020) 60.23 (mL/min/1.73m2) 10/25/22 11:57 Calcium 9.6 mg/dL (8.5-10.1) 10/25/22 11:57 Glucose 101 mg/dL (74-106) 10/25/22 11:57 Liver Function Panel: No Data to Display Coagulation Panel: No Data to Display Cardiac Panel: No Data to Display Arterial Blood Gas: No Data to Display Venous Blood Gas: No Data to Display Pancreas Panel: No Data to Display Thyroid Panel: No Data to Display Infectious Disease: Coronavirus (COVID-19)(PCR) Negative (Negative) 10/25/22 11:30 Coronavirus 2019 Source Nasal/Nares 10/25/22 11:30 Blood Cultures: No Data to Display Toxicology Panel: No Data to Display Imaging and Studies Imaging and Studies Study information below may be from another EMR and interpreted by another provider. Please see original notes in EMR for more complete details. Stress Test Summary: 1. Stress ECG conclusions: The stress ECG is negative. 2. Impressions: Normal study after maximal exercise. 06/27/15 Pulmonary Function Summary: IMPRESSION: Overall, this represents a normal pulmonary function study. The pre- bronchodilator spirometry was suboptimal patient effort. As such, that contributed to the slightly low FEV1/FVC ratio. All other parameters were normal. When this study was compared to the previous one from 06/06/2015, the patient has a 100cc improvement in FVC and 130cc improvement in FEV1 in that time period. Clinical correlation recommended. 05/02/16 Anesthesia Assessment and Plan Anesthesia History Personal History: No History of Anesthesia Complications Family History: No Family History of Anesthesia Complications Exercise Tolerance Exercise Tolerance: Metabolic Equivalents>4 Pertinent Negatives Pertinent Negatives: No Symptoms of GERD (controlled with meds), No Major Cardiovascular Symptoms or Complaints, No Major Pulmonary Symptoms or Complaints and No History of CVA/TIA Cardiac & Pulmonary Exam Cardiac Exam: Normal S1/S2 Heart Sounds Pulmonary Exam: Clear Bilateral Breath Sounds Implantable Cardiac Device Does patient have a Pacemaker or an ICD?: No Airway Exam Known Difficult Airway: No Mallampati Class: 2 Mouth Opening: Normal (> 3cm) Thyromental Distance: Greater than 3 cm Neck Range of Motion: Full ROM Neck Circumference: Normal Teeth Condition: Normal Dentition ASA Classification ASA Score: ASA 2 Emergency Case?: No NPO Status NPO Status: NPO Clears >2 hours, Solids >8 hours Anesthesia Plan Resuscitation Status: Full Code Anesthesia Technique: General Anesthesia Airway Planned: Endotracheal Tube Monitors Used: Standard Monitors
[2022-10-27] MEDS: Lactated Ringers 1,000 ML 125 ML IV (08:53)
[2022-10-27] MEDS: ceFAZolin 2 GM/50 ML BAG IVPB (09:47)
[2022-10-27] MEDS: Bupivacaine 0.25% Pres-Free W/EPI 30 ML VIAL (10:50)
--- NOTE | 2022-10-27 11:02 | PDOC.DSDIS_ITS ---
Date of service: 10/27/22 Time of Service: 11:02 Discharge Plan Disposition Patient Disposition: Home Condition: Improving Discharge Details Reason For Visit: Posterior colporrhaphy Attending Provider: Suzan Pringle Primary Care Provider: Buddy Eisenberg Home Meds and New Rx's Prescriptions: No Action potassium chloride 20 mEq tablet extended release 20 meq PO DAILY trospium 20 mg tablet 20 mg PO BID Rx Instructions: administer on an empty stomach polyethylene glycol 3350 [Miralax] 17 gram/dose powder 17 g PO DAILY bupropion HCl 150 mg tablet sustained-release 12 hr 150 mg PO QAM tramadol 50 mg tablet 50 mg PO .q6 prn cyclobenzaprine 5 mg tablet 5 mg PO TID PRN oxycodone-acetaminophen [Percocet] 5-325 mg tablet 1 tab PO Q6H MDD 4 PRN (Reason: pain) Qty: 5 0RF fluticasone propion-salmeterol [Advair Diskus] 1 EACH blister with device 1 puff Inhalation BID sumatriptan succinate [Imitrex] 25 MG tablet 25 mg PO PRN PRN chlorthalidone 25 MG tablet 25 mg PO DAILY levothyroxine [Synthroid] 88 MCG tablet 112 mcg PO DAILY albuterol sulfate 8.5 GM HFA aerosol inhaler 2 puff Inhalation Q4H PRN magnesium hydroxide [Milk of Magnesia] 30 ML suspension 30 ml PO PRN PRN fluticasone propionate [Flonase Allergy Relief] 9.9 ML spray,suspension 1 spray NS DAILY carboxymethylcellulose sodium [Refresh Tears] 15 ML drops 2 drp OU PRN PRN celecoxib 200 MG capsule 200 mg PO BID Qty: 60 2RF acetaminophen [Acetaminophen Extra Strength] 500 MG tablet 1,000 mg PO Q8H PRN PRNQty: 180 0RF ibuprofen 800 mg Tablet 800 mg PO TID PRN pantoprazole [Protonix] [address] For Susp In Packet 40 mg PO DAILY magnesium oxide 400 mg magnesium Tablet 400 mg PO BID Discharge Instructions Additional Instructions: Avoid straining with defecation. Continue to use your usual medications. You can expect some vaginal discharge from the stitches on the inside of the vagina. It would be bloody discharge for a week and then yellow discharge for 4 weeks. Do not lift anything that makes you grunt. That definitely means no lifting your cat. May shower. Avoid tub baths until the discharge has resolved. Nothing in the vagina until you are seen by Dr. Pringle for a postop check. Tylenol and ibuprofen are fine for postop pain. A prescription for stronger pain medicine will be called into the pharmacy you may pick it up on the way home take 1 tablet of Percocet every 6 hours as needed for pain. Follow up appointment November 09, 2022 at 11:40. Stand Alone Forms: Anesthesia Discharge Inst., DSU Post CIRCUIT DESIGN ENGINEER Surgery, Artur Spence (DSU) Activity:: Activity as Tolerated Diet:: As Tolerated Discharge Orders Discharge Orders: Discharge Order (Routine); Ordered 10/27/22 Ordered By: Suzan Pringle DS: Diagnosis Discharge Diagnosis (1) H/O rectocele repair: Status: Acute Asessment and Plan: Posterior colporrhaphy performed 10/27/2022 (2) Rectocele without uterine prolapse: Status: Acute
--- NOTE | 2022-10-27 12:19 | W.ANESPOSTOP ---
Postoperative Evaluation Date, Time and Location Date Performed: 10/27/22 Time Performed: 12:19 Patient Location: Day Surgery Unit Vital Signs Most Recent Imported Vital Signs: Most Recent Vital Signs Temp Pulse Resp BP Pulse Ox 36.6 C 79 16 168/77 H 95 10/27/22 11:54 10/27/22 11:54 10/27/22 11:54 10/27/22 11:54 10/27/22 11:54 Pain Score Most Recent Pain Score: Most Recent Pain Score Pain Level 0 10/27/22 11:54 Assessment Mental Status: Awake (Alert & Oriented to Patient Baseline) Airway and Respiratory Function: Patent airway with normal (patient baseline) respiratory exam Cardiovascular Function: Hemodynamically Stable Hydration Status: Adequately Hydrated Nausea & Vomiting: No Nausea or Vomiting Pain: Pt. Denies Any Pain Peripheral Nerve Block: Patient did not receive a nerve block
--- NOTE | 2022-11-07 11:32 | ROE_ITS ---
Date of service: 11/07/22 Time of Service: 11:33 Operative Note Operative Note DATE OF PROCEDURE: 10/27/22 PRE-OP DIAGNOSIS: Symptomatic rectocele POST-OP DIAGNOSIS: same Stage I distal cystocele PROCEDURE: Posterior colporrhaphy SURGEON: Suzan Pringle ASSISTING SURGEON: Radha Wang Refer to Anesthesia Record ESTIMATED BLOOD LOSS: 10 PATHOLOGY: none sent COMPLICATIONS: None Patient was transported to: PACU Patient's condition: stable Implants: None Indications: ?72-year-old postmenopausal female with a history of a vaginal bulge when standing or activities requiring her to Valsalva. This has been a longstanding issue but recently seemed to have worsened.? Pt has a hx of chronic?constipation for which she takes Polyethylene Glycol on a daily basis Findings: Exam under anesthesia: Attenuated posterior vaginal epithelium with central defect. Distal stage I cystocele and a stage I uterine prolapse. The anterior vaginal wall prolapse was not any more prominent when the rectocele was supported and decision was made not to proceed with the anterior colporrhaphy Procedure Description: Patient was taken to the operating room where she was placed in the dorsal supine position and general anesthesia was administered without difficulty.? 1 gm of Ancef was administered upon arrival in the OR.? She was then placed in the dorsal lithotomy position in yellowfin stirrups in a neurologically neutral position.? The patient was then prepped, and draped in the usual sterile fashion.? A surgical timeout was performed. A bladder catheter is placed to gravity drainage. The posterior colporrhaphy was performed by initially injecting 2cc of?0.25% Marcaine with dilute Epinephrine?into the vaginal epithelium between the 5 o'clock and 7 o'clock positions at the edge of the vagina and perineal body. The vaginal epithelium was incised with a scalpel in transverse fashion. The vaginal epithelium was dissected off of the underlying fibromuscularis layer in a cephalad fashion until the inferior margin of vaginal cuff was reached. The vaginal epithelium was incised in the midline and the dissection of the vaginal epithelium was extended laterally until the levator muscles were reached at the lateral margins of the vagina. Plication of the lateral fibromuscaris tissue was performed proximally and progressed caudally toward the hymenal ring using interrupted sutures of 0- Vicryl. Attention was turned to the perineal body. The epithelium of the frenulum of the labia was injected with 1 cc?0.25% Marcaine with dilute Epinephrine and a triangular wedge of epithelium and underlying supporting tissue. This allowed access to the elbow bulbospongiosis muscle and the right and left muscles were reapproximated in the midline with 2 interrupted sutures of 0 Vicryl. Followed by the re-approximation of the superficial transverse perineal muscle with an interrupted suture of 0 Vicryl in the midline. The skin of the redundant vaginal epithelium was trimmed and the edges of the vaginal epithelium re-approximated with a running 0 Vicryl suture. A subcuticular closure with 4-0 Vicryl was performed on the perineal incision. The site was noted to be hemostatic at the completion of the procedure. Patient was placed in the dorsal supine position and awakened extubated and transported to recovery area in stable condition. All sponge lap and needle counts correct x2.
== END 2022-10-27 13:05 | disposition home or self-care (01) ==
PROVIDERS: PCP Internal Medicine; Visit Provider Obstetrics & Gynecology Gynecology
PROC: (CPT 57260; principal; 2022-10-27 10:15)
DX: N81.6 Rectocele (principal); N81.10 Cystocele, unspecified
CPT/HCPCS: 57260; 00942; J0690; J1100; J1885; J2405; J2704

== ENCOUNTER 2022-12-20 19:36 | Outpatient (REF) | payer MEDICARE, SELFPAY | END 2022-12-20 19:37 | disposition home or self-care (01) | LOC: NCHCN 19:36 | PROVIDERS: PCP Internal Medicine; Visit Provider Family Medicine | DX: R30.0 Dysuria (principal) | CPT/HCPCS: 87077; 87086; 87186 ==

== ENCOUNTER 2023-06-20 13:22 | Outpatient (REF) | payer MEDICARE, SELFPAY ==
[2023-06-20 15:47] LABS: HCT 40.8 % (36.0-46.0); HGB 13.2 g/dL (11.2-15.7); MCH 26.7 pg (27.0-33.0); MCHC 32.4 % (32.0-36.0); MCV 83 fL (80-95); MPV 10.9 fL (8.0-11.0); Platelet Count 314 10^3/uL (130-400); RBC 4.94 10^6/uL (3.93-5.22); RDW 13.5 % (11.7-14.6); RDW-SD 40.9 fL; WBC 7.08 10^3/uL (4.4-10.8)
[2023-06-20 17:01] LABS: ALT 30 U/L (14-59); AST 23 U/L (15-37); Albumin 4.2 g/dL (3.4-5.0); Alkaline Phosphatase 81 U/L (46-116); Anion Gap 9.5 mmol/L (3-11); BUN 21 mg/dL (7-18); Bilirubin, Total 0.3 mg/dL (0.2-1.0); CO2 29.5 mmol/L (21.0-32.0); Calcium 9.8 mg/dL (8.5-10.1); Chloride 102 mmol/L (98-107); Estimated GFR 59.86 (mL/min/1.73m2); Glucose 108 mg/dL (74-106); Potassium 4.2 mmol/L (3.5-5.1); Sodium 141 mmol/L (136-145); TSH (W/Ref FT4) 2.05 uIU/mL (0.36-3.74); Total Protein 7.4 g/dL (6.4-8.2)
== END 2023-06-20 13:23 | disposition home or self-care (01) ==
LOC: NCHCN 13:22
PROVIDERS: PCP Internal Medicine; Visit Provider Family Medicine
DX: R73.03 Prediabetes (principal); E03.9 Hypothyroidism, unspecified; I10 Essential (primary) hypertension; Z86.2 Personal history of diseases of the blood and blood-forming organs and certain disorders involving the immune mechanism
CPT/HCPCS: 80053; 85027; 83036; 84443

== ENCOUNTER → 2023-10-07 00:58 | Outpatient (CLI) | payer MEDICARE, SELFPAY ==
--- NOTE | 2023-10-07 12:34 | DI.MAMMO_ITS ---
Exam(s) MAMMO SCREENING EXAM: MAMMO SCREENING CLINICAL HISTORY: SCREENING FOR BREAST CANCER Z12.31 TECHNIQUE: Bilateral full field digital CC and MLO mammographic images were obtained with 3D tomosyn thesis and utilizing computer aided detection (CAD). COMPARISON: Available for comparison. FINDINGS: Masses/Architectural Distortion: Stable postsurgical changes in the right breast. No suspicious nodu les are seen. No suspicious areas of architectural distortion are seen. Microcalcifications: No suspicious pleomorphic-type are seen. Skin Thickening/Nipple Retraction: None. IMPRESSION: 1. No significant interval change with no specific features of malignancy noted. 2. Unless there is more urgent need, screening mammography is recommended, as per [employer] guidelines. BI-RADS Category 1 - Negative Breast Density - Category B - Scattered areas of fibroglandular density Breast density category C or D implies that the patient has dense breast tissue. Dense breast tissue is very common and is not abnormal but dense breast tissue can make it harder to find cancer on a ma mmogram. Also, dense breast tissue may increase their breast cancer risk. This information about the result of the mammogram report was provided to the patient to raise their awareness. Use this report when you speak with the patient about their risks for breast cancer, which includes their family hist ory. At that time, you may recommend for more screening tests (Ultrasound or MRI) as they might be us eful based on their risk. A negative radiographic report should not delay biopsy if a dominant or clinically suspicious mass is present. Up to ten percent of cancers are not identified on mammography. A negative report may reinforce clinical impression. Adenosis and dense breasts may obscure an underlying neoplasm. False positive reports average 6 to 10%. Patient will receive a letter notifying them of these results.
== END ==
PROVIDERS: PCP Internal Medicine; Visit Provider Family Medicine
DX: Z12.31 Encounter for screening mammogram for malignant neoplasm of breast (principal)
CPT/HCPCS: 77063; 77067

== ENCOUNTER 2024-02-08 11:03 | Outpatient (REF) | payer MEDICARE, SELFPAY ==
--- NOTE | 2024-02-08 14:30 | SKI_PTH ---
PATIENT: Priscila Gaspar LOC: [facility] U#:[id number] AGE/SX: 73/F ROOM: RE02/08/[address]: James Elias : 1950 BED: DIS: 02/08/2024 SPEC #: [id number] RECD: 02/09/24 12:50 STATUS: BRANDON REQ #: [id number] ELIZ: 02/08/24 14:[address]: James Elias DEPT: Surgical Specimen RECD BY: Wendy Celestin Tissues: 1 - SKIN BIOPSY(SHAVE/PUNCH) Procedures: SKIN LEVEL 4 Comments: [id number]
== END 2024-02-08 11:04 | disposition home or self-care (01) ==
LOC: NCHCN 11:03
PROVIDERS: PCP Family Medicine; Visit Provider Family Medicine
DX: D18.01 Hemangioma of skin and subcutaneous tissue
CPT/HCPCS: 88305

== ENCOUNTER 2024-06-25 18:51 | Outpatient (REF) | payer MEDICARE, SELFPAY ==
[2024-06-25 16:12] LABS: ALT 25 U/L (14-59); AST 26 U/L (15-37); Albumin 3.8 g/dL (3.4-5.0); Alkaline Phosphatase 89 U/L (46-116); Anion Gap 11.8 mmol/L (3-11); BUN 22 mg/dL (7-18); Bilirubin, Total 0.43 mg/dL (0.2-1.0); CO2 28.2 mmol/L (21.0-32.0); Calcium 9.6 mg/dL (8.5-10.1); Chloride 101 mmol/L (98-107); Estimated GFR 59.49 (mL/min/1.73m2); Glucose 97 mg/dL (74-106); Potassium 4.3 mmol/L (3.5-5.1); Sodium 141 mmol/L (136-145); TSH (W/Ref FT4) 2.54 uIU/mL (0.36-3.74); Total Protein 7.2 g/dL (6.4-8.2)
== END 2024-06-25 18:52 | disposition home or self-care (01) ==
LOC: NCHCN 18:51
PROVIDERS: PCP Family Medicine; Visit Provider Family Medicine
DX: E03.9 Hypothyroidism, unspecified (principal)
CPT/HCPCS: 80053; 84443

== ENCOUNTER 2025-05-30 16:06 | Outpatient (REF) | payer MEDICARE, SELFPAY | END 2025-05-30 16:07 | disposition home or self-care (01) | LOC: NCHCN 16:06 | PROVIDERS: PCP Family Medicine; Visit Provider Family Medicine | DX: R35.0 Frequency of micturition (principal) | CPT/HCPCS: 87077; 87086; 87186 ==

== ENCOUNTER 2025-07-10 14:47 | Outpatient (REF) | payer MEDICARE, SELFPAY ==
[2025-07-10 14:37] LABS: HCT 40.2 % (36.0-46.0); HGB 12.8 g/dL (11.2-15.7); MCH 26.0 pg (27.0-33.0); MCHC 31.8 % (32.0-36.0); MCV 82 fL (80-95); MPV 11.6 fL (8.0-11.0); Platelet Count 284 10^3/uL (130-400); RBC 4.93 10^6/uL (3.93-5.22); RDW 15.1 % (11.7-14.6); RDW-SD 45.1 fL; WBC 7.90 10^3/uL (4.4-10.8)
[2025-07-10 15:10] LABS: TSH 1.74 uIU/mL (0.55-4.78)
[2025-07-10 15:16] LABS: ALT 25 U/L (10-49); AST 32 U/L (<34); Albumin 4.4 g/dL (3.4-5.0); Alkaline Phosphatase 88 U/L (46-116); Anion Gap 8.5 mmol/L (3-11); BUN 25 mg/dL (9-23); Bilirubin, Total 0.30 mg/dL (0.2-1.2); CO2 30.5 mmol/L (20.0-31.0); Calcium 9.6 mg/dL (8.3-10.6); Chloride 101 mmol/L (98-107); Glucose 120 mg/dL (74-106); Potassium 4.2 mmol/L (3.5-5.1); Sodium 140 mmol/L (136-145); Total Protein 7.1 g/dL (5.7-8.2)
[2025-07-10 15:50] LABS: Hemoglobin A1C 6.4 % (<5.7)
== END 2025-07-10 14:48 | disposition home or self-care (01) ==
LOC: NCHCN 14:47
PROVIDERS: PCP Family Medicine; Visit Provider Family Medicine
DX: R73.03 Prediabetes (principal); I10 Essential (primary) hypertension; E03.9 Hypothyroidism, unspecified; E78.5 Hyperlipidemia, unspecified; K21.9 Gastro-esophageal reflux disease without esophagitis
CPT/HCPCS: 80053; 83721; 85027; 83036; 84443

== ENCOUNTER → 2025-07-23 00:28 | Outpatient (CLI) | payer MEDICARE, SELFPAY ==
--- NOTE | 2025-07-23 12:59 | DI.MAMMO_ITS ---
Exam(s) MAMMO SCREENING EXAM: MAMMO SCREENING CLINICAL HISTORY: SCREENING,Z12.31 TECHNIQUE: Bilateral full field digital CC and MLO mammographic images were obtained with 3D tomosynthesis and utilizing computer aided detection (CAD). COMPARISON: Comparison is made with prior examinations. FINDINGS: Masses/Architectural Distortion: No suspicious masses or areas of architectural distortion are present. There is stable surgical clips in the right breast. Microcalcifications: No suspicious pleomorphic-type are seen. Skin Thickening/Nipple Retraction: None. IMPRESSION: 1. No significant interval change with no specific features of malignancy noted. 2. Unless there is more urgent need, screening mammography is recommended, as per [employer] guidelines. BI-RADS Category 2 - Benign Findings Breast Density - Category B - There are scattered areas of fibroglandular density. Breast density Category C or D implies that the patient has dense breast tissue. Dense breast tissue can make it harder to find cancer on a mammogram. Dense breast tissue is also associated with an increased risk of breast cancer. This information about the result of the mammogram report was provided to the patient to raise their awareness. Use this report when you speak with the patient about their risks for breast cancer, which includes their family history. At that time, you may recommend additional screening tests (Ultrasound or MRI) as these tests may add significant information. A negative radiographic report should not delay biopsy if a dominant or clinically suspicious mass is present. Up to ten percent of cancers are not identified on mammography. A negative report may reinforce clinical impression. Adenosis and dense breasts may obscure an underlying neoplasm. False positive reports average 6 to 10%. Patient will receive a letter notifying them of these results.
== END ==
PROVIDERS: PCP Family Medicine; Visit Provider Family Medicine
DX: Z12.31 Encounter for screening mammogram for malignant neoplasm of breast (principal)
CPT/HCPCS: 77063; 77067